=== PATIENT | male | born 1940 | race Caucasian/White ===

== ENCOUNTER → 2016-11-16 | Outpatient (CLI) | payer MEDICARE, OTHER ==
--- NOTE | 2016-11-16 15:39 | XR ---
EXAMINATION TYPE: XR chest 2V DATE OF EXAM: 11/16/2016 COMPARISON: 04/09/2010 INDICATION: Left-sided chest pain TECHNIQUE: Frontal and lateral views of the chest are obtained. FINDINGS: The heart size is normal. The pulmonary vasculature is normal. The lungs are clear. IMPRESSION: 1. No acute pulmonary process.
== END ==
LOC: RADXRMAIN 15:15
PROVIDERS: ATTEND Internal Medicine Geriatric Medicine
DX: R07.9 Chest pain, unspecified (principal)
CPT/HCPCS: 71020

== ENCOUNTER → 2018-05-08 | Outpatient (CLI) | payer MEDICARE, OTHER ==
--- NOTE | 2018-05-08 16:05 | XR ---
EXAMINATION TYPE: XR chest 2V DATE OF EXAM: 05/08/2018 COMPARISON: 11/16/2016 HISTORY: 78-year-old male with cough TECHNIQUE: Frontal and lateral views FINDINGS: Heart normal size. Mild elongation thoracic aorta. Strandy atelectasis lower lungs. No consolidation or pleural effusion. IMPRESSION: No acute cardiopulmonary process.
== END ==
LOC: RADXRMAIN 14:30
PROVIDERS: ATTEND Internal Medicine Geriatric Medicine
DX: R05 Cough (principal)
CPT/HCPCS: 71046

== ENCOUNTER → 2018-09-15 | Outpatient (CLI) | payer MEDICARE, OTHER ==
--- NOTE | 2018-09-15 10:38 | US ---
EXAMINATION TYPE: US venous doppler duplex LE LT DATE OF EXAM: 09/15/2018 10:22 AM COMPARISON: NONE CLINICAL HISTORY: R60.9 edema. Left lower leg swelling. No redness. No hx of blood clots. Not on b lood thinners. SIDE PERFORMED: Left TECHNIQUE: The lower extremity deep venous system is examined utilizing real time linear array sonog aden with graded compression, doppler sonography and color-flow sonography. VESSELS IMAGED: External Iliac Vein (EIV) Common Femoral Vein Deep Femoral Vein Greater Saphenous Vein * Femoral Vein Popliteal Vein Small Saphenous Vein * Proximal Calf Veins (* superficial vessels) Grayscale, color doppler, spectral doppler imaging performed of the deep veins of the left lower extr emity. There is normal flow, compressibility, vascular waveforms. Left Leg: Negative for DVT IMPRESSION: No sonographic evidence of deep venous thrombosis within the left lower extremity.
== END | disposition home or self-care (01) ==
LOC: RADUSWWP 09:57
PROVIDERS: ATTEND Internal Medicine Geriatric Medicine
DX: R60.9 Edema, unspecified (principal)

== ENCOUNTER 2018-12-23 14:37 | Emergency (ER) | payer MEDICARE, OTHER ==
[2018-12-23] MEDS ORDERED: ASPIRIN 81 MG PO STA (15:01)
--- NOTE | 2018-12-23 15:07 | ED ---
Arrhythmia/Palpitations HPI - General Chief Complaint: Arrhythmia/Palpitations Stated Complaint: Abnormal EKG &Knee Pain Time Seen by Provider: 12/23/18 14:48 Source: patient Mode of arrival: ambulatory - History of Present Illness Initial Comments: Patient is 78-year-old male with history of gout and type 2 diabetes is presenting to the emergency department with chief complaint of knee pain and arrhythmia. Patient reports he was moving a large crate of carrots and sutured left his pain is right knee which caused him pain along the lateral aspect of her right knee. Patient reports yesterday he took indomethacin to relieve some of the pain. Patient reports the pain is minimal today but he went to an urgent care for evaluation where they obtained an x-ray. However, they noticed an abnormal heart rhythm and did an EKG and sent patient to the ED for further evaluation. Patient reports he takes daily baby aspirin and does take a statin for hypercholesterolemia. Patient denies any headaches, chest pain, shortness of breath, nausea, vomiting, light headedness, dizziness, blurry vision, one-sided weakness or paresthesias. - Related Data Home Medications Medication Instructions Recorded Confirmed Atorvastatin [Lipitor] 10 mg PO DAILY 12/23/18 12/23/18 Latanoprost/Pf [Latanoprost 0.005% 1 drop BOTH EYES HS 12/23/18 12/23/18 Eye Drop] Repaglinide [Prandin] 2 mg PO BID 12/23/18 12/23/18 Ubidecarenone [Co Q-10] 200 mg PO DAILY 12/23/18 12/23/18 glipiZIDE/METFORMIN HCL 1 tab PO BID 12/23/18 12/23/18 [glipiZIDE/METFORMIN HCL 2.5-500 mg] Allergies Allergy/AdvReac Type Severity Reaction Status Date / Time No Known Allergies Allergy Verified 12/23/18 15:09 Review of Systems ROS Statement: Those systems with pertinent positive or pertinent negative responses have been documented in the HPI. ROS Other: All systems not noted in ROS Statement are negative. Past Medical History Past Medical History: Diabetes Mellitus, Hyperlipidemia Additional Past Medical History / Comment(s): gout, cataracts History of Any Multi-Drug Resistant Organisms: None Reported Past Surgical History: Cholecystectomy Past Psychological History: No Psychological Hx Reported Smoking Status: Never smoker Past Alcohol Use History: None Reported Past Drug Use History: None Reported General Exam Limitations: no limitations General appearance: alert, in no apparent distress Head exam: Present: atraumatic, normocephalic, normal inspection Eye exam: Present: normal appearance Pupils: Present: normal accommodation ENT exam: Present: normal exam, normal oropharynx, mucous membranes moist, TM's normal bilaterally, normal external ear exam Neck exam: Present: normal inspection, full ROM Respiratory exam: Present: normal lung sounds bilaterally Cardiovascular Exam: Present: regular rate, normal rhythm, normal heart sounds Extremities exam: Present: full ROM, normal capillary refill, joint swelling (Mild right knee edema), other (+2 dorsalis pedis and posterior tibialis bilaterally.). Absent: normal inspection (Mild swelling of right knee. 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 Ventricular rate 71, CA interval 160, QRS duration 114, QT/QTC 374/406 Medical Decision Making - Medical Decision Making Patient is 78-year-old male with history of type 2 diabetes and gout is presenting to emergency Department with a chief complaint of an arrhythmia leg pain. X-ray obtained from the urgent care suggestive of calcification in the menisci along with some spurring. Physical examination does indicate some pain along the lateral aspect of the right knee. Patient also reported of the knee giving out whenever he is walking. I suspect the patient to have suffered a meniscal injury with a valgus force while he was twisting to carry a large grape. The patient was sent to the ED for an arrhythmia evaluation. EKG does show supraventricular complexes. Patient had a stress test and echocardiogram about 4 years ago which were unremarkable. Patient has no chest pain or shortness of breath at this time. Initial troponins and Repeat troponins are negative. Patient will be discharged and advised to follow-up with his associate medical director, Dr. Finley. Strict return parameters were thoroughly discussed with patient was understanding and agreeable. Case discussed physician. - Lab Data Result diagrams: 12/23/18 15:08 12/23/18 15:08 Lab Results 12/23/18 12/23/18 12/23/18 Range/Units 15:08 15:08 15:08 WBC 8.1 (3.8-10.6) k/uL RBC 4.74 (4.30-5.90) m/uL Hgb 14.1 (13.0-17.5) gm/dL Hct 41.2 (39.0-53.0) % MCV 86.9 (80.0-100.0) fL MCH 29.8 (25.0-35.0) pg MCHC 34.3 (31.0-37.0) g/dL RDW 13.1 (11.5-15.5) % Plt Count 281 (150-450) k/uL Neutrophils % 79 % Lymphocytes % 10 % Monocytes % 7 % Eosinophils % 2 % Basophils % 1 % Neutrophils # 6.4 (1.3-7.7) k/uL Lymphocytes # 0.8 L (1.0-4.8) k/uL Monocytes # 0.5 (0-1.0) k/uL Eosinophils # 0.1 (0-0.7) k/uL Basophils # 0.1 (0-0.2) k/uL PT 10.1 (9.0-12.0) sec INR 0.9 (<1.2) APTT 26.1 (22.0-30.0) sec Sodium 139 (137-145) mmol/L Potassium 5.1 (3.5-5.1) mmol/L Chloride 106 (98-107) mmol/L Carbon Dioxide 24 (22-30) mmol/L Anion Gap 9 mmol/L BUN 17 (9-20) mg/dL Creatinine 0.89 (0.66-1.25) mg/dL Est GFR (CKD-EPI)AfAm >90 (>60 ml/min/1.73 sqM) Est GFR (CKD-EPI)NonAf 83 (>60 ml/min/1.73 sqM) Glucose 263 H (74-99) mg/dL Calcium 9.5 (8.4-10.2) mg/dL Magnesium 1.4 L (1.6-2.3) mg/dL Total Bilirubin 0.7 (0.2-1.3) mg/dL AST 19 (17-59) U/L ALT 30 (21-72) U/L Alkaline Phosphatase 104 (38-126) U/L Troponin I (0.000-0.034) ng/mL Total Protein 6.7 (6.3-8.2) g/dL Albumin 4.0 (3.5-5.0) g/dL 12/23/18 12/23/18 Range/Units 15:08 18:00 WBC (3.8-10.6) k/uL RBC (4.30-5.90) m/uL Hgb (13.0-17.5) gm/dL Hct (39.0-53.0) % MCV (80.0-100.0) fL MCH (25.0-35.0) pg MCHC (31.0-37.0) g/dL RDW (11.5-15.5) % Plt Count (150-450) k/uL Neutrophils % % Lymphocytes % % Monocytes % % Eosinophils % % Basophils % % Neutrophils # (1.3-7.7) k/uL Lymphocytes # (1.0-4.8) k/uL Monocytes # (0-1.0) k/uL Eosinophils # (0-0.7) k/uL Basophils # (0-0.2) k/uL PT (9.0-12.0) sec INR (<1.2) APTT (22.0-30.0) sec Sodium (137-145) mmol/L Potassium (3.5-5.1) mmol/L Chloride (98-107) mmol/L Carbon Dioxide (22-30) mmol/L Anion Gap mmol/L BUN (9-20) mg/dL Creatinine (0.66-1.25) mg/dL Est GFR (CKD-EPI)AfAm (>60 ml/min/1.73 sqM) Est GFR (CKD-EPI)NonAf (>60 ml/min/1.73 sqM) Glucose (74-99) mg/dL Calcium (8.4-10.2) mg/dL Magnesium (1.6-2.3) mg/dL Total Bilirubin (0.2-1.3) mg/dL AST (17-59) U/L ALT (21-72) U/L Alkaline Phosphatase (38-126) U/L Troponin I <0.012 <0.012 (0.000-0.034) ng/mL Total Protein (6.3-8.2) g/dL Albumin (3.5-5.0) g/dL Disposition Clinical Impression: Arrhythmia, Injury of meniscus of knee Disposition: HOME SELF-CARE Condition: Stable Instructions (If sedation given, give patient instructions): Heart Palpitations (ED) Additional Instructions: Please follow up with cardiology. Please return to emergency department if symptoms worsen. Is patient prescribed a controlled substance at d/c from ED?: No Referrals: Man Jacobsen MD [Primary Care Provider] - 1-2 days Time of Disposition: 18:54
[2018-12-23 15:21] LABS: Basophils # (A) 0.1 k/uL (0-0.2); Basophils % (A) 1 %; Eosinophils # (A) 0.1 k/uL (0-0.7); Eosinophils % (A) 2 %; HCT 41.2 % (39.0-53.0); HGB 14.1 gm/dL (13.0-17.5); Lymphocytes # (A) 0.8 k/uL (1.0-4.8); Lymphocytes % (A) 10 %; MCH 29.8 pg (25.0-35.0); MCHC 34.3 g/dL (31.0-37.0); MCV 86.9 fL (80.0-100.0); Monocytes # (A) 0.5 k/uL (0-1.0); Monocytes % (A) 7 %; Neutrophils # (A) 6.4 k/uL (1.3-7.7); Neutrophils % (A) 79 %; Platelet Count 281 k/uL (150-450); RBC 4.74 m/uL (4.30-5.90); RDW 13.1 % (11.5-15.5); WBC 8.1 k/uL (3.8-10.6)
[2018-12-23 15:30] LABS: INR 0.9 (<1.2); Partial Thromboplastin Time 26.1 sec (22.0-30.0); Prothrombin Time 10.1 sec (9.0-12.0)
[2018-12-23 15:33] LABS: ALT 30 U/L (21-72); AST 19 U/L (17-59); African American GFR (CKD) >90 (>60 ml/min/1.73 sqM); Alkaline Phosphatase 104 U/L (38-126); Anion Gap 9 mmol/L; Blood Urea Nitrogen 17 mg/dL (9-20); Calcium 9.5 mg/dL (8.4-10.2); Carbon Dioxide 24 mmol/L (22-30); Chloride 106 mmol/L (98-107); Glucose 263 mg/dL (74-99); Magnesium 1.4 mg/dL (1.6-2.3); Potassium 5.1 mmol/L (3.5-5.1); Sodium 139 mmol/L (137-145); Total Bilirubin 0.7 mg/dL (0.2-1.3); Total Protein 6.7 g/dL (6.3-8.2)
--- NOTE | 2018-12-23 16:08 | XR ---
EXAMINATION TYPE: XR chest 2V DATE OF EXAM: 12/23/2018 COMPARISON: 05/08/2018 HISTORY: Dysrhythmia TECHNIQUE: Frontal and lateral views of the chest are obtained. FINDINGS: There is no heart failure nor confluent pneumonic infiltrate. Costophrenic angles are nathalie r. There are chest leads. Bony thorax is intact. IMPRESSION: No active cardiopulmonary disease. Normal heart. No change.
[2018-12-23 19:06] VITALS: BP 125/87; PULSE 75; RESP 16; TEMP 98.1
== END 2018-12-23 19:05 | disposition home or self-care (01) ==
LOC: EC 14:37
DX: I49.9 Cardiac arrhythmia, unspecified (principal); S89.91XA Unspecified injury of right lower leg, initial encounter; E11.9 Type 2 diabetes mellitus without complications; E78.00 Pure hypercholesterolemia, unspecified; E78.5 Hyperlipidemia, unspecified; Z79.84 Long term (current) use of oral hypoglycemic drugs; Z79.899 Other long term (current) drug therapy; X58.XXXA Exposure to other specified factors, initial encounter
CPT/HCPCS: 36415; 71046; 80053; 83735; 84484; 85025; 85610; 85730; 93005; 99285

== ENCOUNTER → 2018-12-29 | Outpatient (CLI) | payer MEDICARE, OTHER ==
--- NOTE | 2018-12-29 12:33 | ECHOS ---
STRESS ECHOCARDIOGRAM INDICATIONS: Atherosclerotic heart disease BASELINE HEART RATE: 86 BASELINE BLOOD PRESSURE: 151/88 MAXIMUM HEART RATE: 134 MAXIMUM BLOOD PRESSURE: 195/96 85% MPHR: 122 100% MPHR: 144 METS: 8.5 MAXIMUM STAGE REACHED: 3 TOTAL EXERCISE TIME: 7:00 CLINICAL INFORMATION: Baseline EKG revealed normal sinus rhythm without significant ST changes. Patient walked on standard Rajiv protocol for 7 minutes achieved a maximal heart rate of 134 beats per minute which is more than 85% of predicted maximal. He developed fatigue and shortness of breath but did not have any angina or arrhythmia. Rare PVCs were noted. By EKG criteria, this is a negative stress test with fair exercise capacity. Baseline echo images revealed normal wall motion wall thickening of all segments. At peak exercise, there was good augmentation of left ventricular wall motion and wall thickening of all segments suggesting that there is no evidence of stress-induced ischemia on this study. IMPRESSION: 1. By EKG criteria, this is a negative stress test with fair exercise capacity. 2. Normal stress echocardiogram. MMODL / IJN: [id number] /
== END | disposition home or self-care (01) ==
LOC: RADNMMAIN 10:35
PROVIDERS: ATTEND Internal Medicine Geriatric Medicine
DX: I25.10 Atherosclerotic heart disease of native coronary artery without angina pectoris (principal)
CPT/HCPCS: 93351

== ENCOUNTER 2019-04-23 16:27 | Emergency (ER) | payer MEDICARE, OTHER ==
[2019-04-23 16:48] VITALS: BP 119/78; PULSE 78; RESP 18; TEMP 97.9
--- NOTE | 2019-04-23 17:30 | CT ---
EXAMINATION TYPE: CT brain cspine wo con DATE OF EXAM: 04/23/2019 COMPARISON: CT brain 04/06/2010 HISTORY: Fall with head laceration, LOC CT DLP: 1433.9 mGycm Automated exposure control for dose reduction was used. There is cerebral cortical atrophy. There is no mass effect nor midline shift. There is no sign of in tracranial hemorrhage. The calvarium is intact. There is no evidence of cerebral edema. Cervical vertebra show fairly normal alignment. There is degenerative disc space nor in to C4-C7 with spurring of the endplates. There is multilevel cervical hypertrophic facet arthropathy. The skull ba se is intact. There is no evidence of cervical spine fracture. IMPRESSION: Cerebral atrophy. No acute intracranial abnormality. No change compared to old exam. Spondylotic changes in the lower cervical spine. No fracture seen.
--- NOTE | 2019-04-23 17:51 | ED ---
Fall HPI - General Chief Complaint: Fall Stated Complaint: fall Time Seen by Provider: 04/23/19 16:53 Source: patient Mode of arrival: ambulatory - History of Present Illness Initial Comments: 79-year-old male presenting today for chief complaint of fall with head injury, + LOC. No use of anticoagulation therapy Patient just prior to arrival was working his garage carrying a heavy object when he tripped falling backwards with the object hitting his head. He states he lost consciousness briefly he states he felt like a few seconds. Patient states that he found blood coming from the back of his head. Patient denies any headache dizziness nausea vomiting visual changes or speech changes weakness of the upper or lower extremities sensation deficits, patient denied syncope, chest pain SOB prior to falling States he simply tripping with an object. Patient denies injury to the neck, back abdomen, chest, UE or LE. Patient ambulatory and well appearing on arrival. - Related Data Home Medications Medication Instructions Recorded Confirmed Atorvastatin [Lipitor] 10 mg PO DAILY 12/23/18 12/23/18 Latanoprost/Pf [Latanoprost 0.005% 1 drop BOTH EYES HS 12/23/18 12/23/18 Eye Drop] Repaglinide [Prandin] 2 mg PO BID 12/23/18 12/23/18 Ubidecarenone [Co Q-10] 200 mg PO DAILY 12/23/18 12/23/18 glipiZIDE/METFORMIN HCL 1 tab PO BID 12/23/18 12/23/18 [glipiZIDE/METFORMIN HCL 2.5-500 mg] Allergies Allergy/AdvReac Type Severity Reaction Status Date / Time No Known Allergies Allergy Verified 04/23/19 16:48 Review of Systems ROS Statement: Those systems with pertinent positive or pertinent negative responses have been documented in the HPI. ROS Other: All systems not noted in ROS Statement are negative. Past Medical History Past Medical History: Diabetes Mellitus, Hyperlipidemia Additional Past Medical History / Comment(s): gout, cataracts History of Any Multi-Drug Resistant Organisms: None Reported Past Surgical History: Cholecystectomy Past Psychological History: No Psychological Hx Reported Smoking Status: Never smoker Past Alcohol Use History: None Reported Past Drug Use History: None Reported General Exam - General Exam Comments Initial Comments: General: The patient is awake and alert, in no distress, and does not appear acutely ill. Eye: +3 mm pupils are equal, round and reactive to light, extra-ocular movements are intact. No nystagmus. There is normal conjunctiva bilaterally. No signs of icterus. Ears, nose, mouth and throat: There are moist mucous membranes and no oral lesions. No raccoon or Frey sign. Neck: The neck is supple, there is no tenderness or JVD. No midline tenderness to patient the cervical spine or paravertebral for range of motion of the cervical spine without pain Cardiovascular: There is a regular rate and rhythm. No murmur, rub or gallop is appreciated. Respiratory: Lungs are clear to auscultation, respirations are non-labored, breath sounds are equal. No wheezes, stridor, rales, or rhonchi. Gastrointestinal: Soft, non-distended, non-tender abdomen without masses or organomegaly noted. There is no rebound or guarding present. Musculoskeletal: Normal inspection of the cervical thoracic and lumbar spine. No midline tenderness to patient of the spine. Normal ROM of the upper and lower extremity large joints, no tenderness. Strength 5/5. Sensation intact. Radial pulses equal bilaterally 2+. Neurological: A&O x 3. CN II-XII intact, There are no obvious motor or sensory deficits. Coordination appears grossly intact. Speech is normal. Skin: Skin is warm and dry and no rashes. Occiptal scalp hematoma, scalp abrasion over hematoma, no laceration Psychiatric: Cooperative, appropriate mood & affect, normal judgment. Limitations: no limitations Course Vital Signs 04/23/19 04/23/19 16:44 18:49 Temperature 97.9 F 97.9 F Pulse Rate 78 78 Respiratory 18 18 Rate Blood Pressure 119/78 119/78 O2 Sat by Pulse 100 100 Oximetry Medical Decision Making - Medical Decision Making 79-year-old male presented for fall with LOC. No use of anticoagulation therapy. Tetanus UTD. Patient states that he had brief loss of consciousnes. No focal neurological deficits on examination. No complaints aside from scalp hematoma. CT revealed no acute intracranial process. No abnormalities of the cervical spine. Patient has no abnormal neurological findings or peripheral neurovascular examination. At this time feel patient is stable for discharge with outpatient primary care follow-up. Patient is agreeable to this care plan prefers discharge at this time. Discussed case attending provider and patient was discharged appearing well Disposition Clinical Impression: Fall, Scalp hematoma, LOC (loss of consciousness), Head injury, Scalp abrasion Disposition: HOME SELF-CARE Condition: Good Instructions (If sedation given, give patient instructions): Concussion (ED), Head Injury (ED) Additional Instructions: Please use medication as discussed. Please follow-up with family doctor in the next 2 days. Please return to emergency room if the symptoms increase or worsen or for any other concerns. Is patient prescribed a controlled substance at d/c from ED?: No Referrals: Man Jacobsen MD [Primary Care Provider] - 1-2 days Time of Disposition: 17:50
== END 2019-04-23 18:25 | disposition home or self-care (01) ==
LOC: EC 16:27
DX: S06.9X9A Unspecified intracranial injury with loss of consciousness of unspecified duration, initial encounter (principal); S00.03XA Contusion of scalp, initial encounter; E11.36 Type 2 diabetes mellitus with diabetic cataract; H26.9 Unspecified cataract; E78.5 Hyperlipidemia, unspecified; Z79.84 Long term (current) use of oral hypoglycemic drugs; Z79.899 Other long term (current) drug therapy; W01.198A Fall on same level from slipping, tripping and stumbling with subsequent striking against other object, initial encounter; Y92.59 Other trade areas as the place of occurrence of the external cause
CPT/HCPCS: 70450; 72125; 99284

== ENCOUNTER → 2019-04-26 | Outpatient (CLI) | payer MEDICARE, OTHER ==
--- NOTE | 2019-04-26 21:38 | CT ---
EXAMINATION TYPE: CT abdomen pelvis w con DATE OF EXAM: 04/26/2019 COMPARISON: None INDICATION: Lower abdominal pain and diarrhea x2 months. DLP: 1632.1 mGycm, Automated exposure control for dose reduction was used. CONTRAST: 100ml mL of Isovue 300. Study performed with Oral Contrast TECHNIQUE: Axial images were obtained from above the diaphragm to the pubic rami in the axial plane a t 5 mm thick sections. Reconstructed images are reviewed on the computer in the coronal plane. FINDINGS: Limited CT sections are obtained the lung bases. The lung bases are clear. Coronary artery calcific ation is present. Small hiatal hernia is present. Surgical clips are in the epigastric region. CT ABDOMEN: Liver: Normal Spleen: Normal Pancreas: Multiple calcifications are scattered through the pancreas. Correlate for chronic pancreati tis. Some subtle inflammatory change may be adjacent. Some mild acute pancreatitis could be considere d. No suspicious pancreatic duct dilatation is evident. Adrenal glands: The adrenal glands are normal. Gallbladder: Surgically absent Kidneys: No masses are evident. No hydronephrosis is present. There is a 7 cm cyst at the inferior anterior pole left kidney measuring 8 Hounsfield units. There is likely a 0.3 cm nonobstructing renal stone at the inferior pole left kidney. A nonobstructing 0.5 cm calcification is in the mid lateral left kidney. Couple of small cortical renal cysts are in the upper pole left kidney. There are multip le calcifications without obstruction in the right kidney including a 0.6 cm and the 0.5 cm calcifica tion superior pole couple of mid punctate calcifications measuring approximately 0.1 cm and 0.3 cm in the mid right kidney and a 0.2 cm inferior pole renal stone. Delayed images were obtained through t he kidneys, which remain unremarkable. Aorta: Vascular calcification is within the aorta. Inferior vena cava: Normal. CT PELVIS: Loops of bowel within the abdomen and pelvis are normal. There are loops of bowel which are incom pletely distended or lack oral contrast limiting their evaluation. Appendix: Normal as visualized. Urinary bladder: Partially decompressed some limitation. Genitourinary structures: Prostate is slightly prominent. Osseous structures: No suspicious lytic or sclerotic lesions. IMPRESSIONS: 1. Chronic pancreatitis. Some subtle adjacent inflammatory change could suggest some mild acute panc reatitis. 2. Bilateral nonobstructing renal stones. 3. Renal cysts. The largest measuring 7 cm at the inferior pole left kidney.
== END | disposition home or self-care (01) ==
LOC: RADCTMAIN 14:46
PROVIDERS: ATTEND Internal Medicine Geriatric Medicine
DX: K86.1 Other chronic pancreatitis (principal); N28.1 Cyst of kidney, acquired
CPT/HCPCS: 74177; Q9967

== ENCOUNTER → 2019-11-09 | Outpatient (CLI) | payer MEDICARE, OTHER ==
--- NOTE | 2019-11-09 16:57 | MR ---
MR abdomen with and without contrast HISTORY: Chronic pancreatitis Multiplanar multisequence and postcontrast images obtained through the abdomen following 9 cc Gadavis t IV Correlation to CT abdomen pelvis 04/26/2019 Pancreas appears somewhat fatty replaced. The extensive calcification seen on CT are not as well seen on MRI consistent with chronic pancreatitis. Pancreatic duct is dilated. No evident mass. There is l ow intense focus on axial image 26 of the T2 data set, difficult to exclude calcification within the pancreatic duct. The large exophytic cystic focus at the lower pole the left kidney is again noted, T1 hypointense, T2 intense and measures 7.6 cm in diameter. 2 additional cortical cysts are present one of which in exo phytic location the upper pole and medially in the midpole shows similar characteristics, there is a focus however exophytic location in the mid to lower pole laterally which is T2 hypointense measuring approximately 18 mm on coronal image #28 of the T2 data set, T1-weighted images show increased signa l, findings may represent proteinaceous cyst. Lobular contour of the right kidney is again seen, the patient's known renal calculi not well appreciated on MR. There is no hydronephrosis. The adrenal glands show symmetric appearance. The liver is enlarged. Patient is post cholecystectomy. There is extensive diverticular change present within the colon. Lung bases are clear, there is no p leural pericardial effusion. There is hiatal hernia with partial intrathoracic stomach present. This may be recurrent, surgical clips are present at this level, correlate with appropriate surgical histo ry. Motion a duodenal diverticulum at the level of the head of the pancreas as noted on CT. Small bowel l oops show air-filled appearance, multiple air-fluid levels similar to CT, there is motion artifact. A emily shows normal caliber. No retroperitoneal adenopathy or ascites. IMPRESSION: Findings consistent with chronic pancreatitis, difficult to exclude calculus within the p ancreatic duct, multiple calcifications are noted on CT within the pancreas as noted above. Hepatomeg marisol. Additional findings above.
== END | disposition home or self-care (01) ==
LOC: RADMRIMAIN 11:42
PROVIDERS: ATTEND Internal Medicine
DX: R16.0 Hepatomegaly, not elsewhere classified (principal); N20.0 Calculus of kidney; N28.1 Cyst of kidney, acquired; N28.89 Other specified disorders of kidney and ureter; K86.89 Other specified diseases of pancreas; K57.10 Diverticulosis of small intestine without perforation or abscess without bleeding; Z90.49 Acquired absence of other specified parts of digestive tract
CPT/HCPCS: 74183; A9585

== ENCOUNTER → 2019-11-12 | Outpatient (CLI) | payer MEDICARE, OTHER ==
--- NOTE | 2019-11-12 17:55 | MR ---
EXAMINATION TYPE: MR pelvis wo/w con DATE OF EXAM: 11/12/2019 COMPARISON: CT 04/26/2019 and MRI abdomen 11/09/2019 HISTORY: 79 year-old male K86.1 Pancreatitis Technique: Multiplanar, multisequence images of the pelvis were obtained before and after administrat ion of 9 mL intravenous Gadavist gadolinium contrast. FINDINGS: The patient's [id number] sized hiatal hernia with surgical clips near the GE junction not incl uded on this exam. Mild circumference wall thickening mid rectum could represent adherent stool. Sigmoid diverticulosis. Partially visualized large 7.1 cm cyst from the lower pole of the left kidney. Normal appendix noted. Mild circumferential bladder wall thickening. Prostate gland is visualized measuring 5.1 cm wide. There is a 1.5 cm T2 hypointense area within the right central zone, refer to series 601 image 5. Postcontrast axial sequences limited due to extensive artifact in the left hemipelvis. No abnormal fl uid collection seen within the pelvis. No pelvic lymphadenopathy identified. Moderate multilevel degenerative disc disease in the visualized lower lumbar spine. Heterogeneous marrow signal likely from areas of red marrow hyperplasia which can be seen in setting of anemia, obesity, smoking, chronic disease. IMPRESSION: 1. Sigmoid diverticulosis. Mild circumferential wall thickening of the mid rectum could represent adh erent stool. Direct visualization recommended to exclude a mucosal lesion if routine screening colono scopy is not being performed. 2. Prostatomegaly at 5.1 cm wide. There is a 1.5 cm area of T2 low signal within the right central zo ne. Correlate with PSA values to exclude the possibility of prostate cancer. 3. Mild circumferential bladder wall thickening could reflect chronic bladder wall hypertrophy versus cystitis. 4. Query prior Chetna fundoplication on the correlative CT. The presence of a small to moderate sized hiatal hernia suggests a slipped Chetna wrap in this setting.
== END | disposition home or self-care (01) ==
LOC: RADMRIMAIN 12:04
PROVIDERS: ATTEND Internal Medicine
DX: K57.30 Diverticulosis of large intestine without perforation or abscess without bleeding (principal); K63.89 Other specified diseases of intestine; N40.0 Benign prostatic hyperplasia without lower urinary tract symptoms; N32.89 Other specified disorders of bladder
CPT/HCPCS: 72197; A9585

== ENCOUNTER 2021-06-06 09:09 | Observation (INO) | payer MEDICARE ==
--- NOTE | 2021-06-06 09:29 | ED ---
General Adult HPI - General Chief complaint: Neuro Symptoms/Deficit Stated complaint: confusion, speech trouble Time Seen by Provider: 06/06/21 09:18 Source: patient, family, RN notes reviewed Mode of arrival: ambulatory Limitations: no limitations - History of Present Illness Initial comments: Patient is a pleasant 81-year-old male presenting to the emergency department with concerns for speech problems. Onset was at 5:30 last night. Patient was awake at the time. Patient had significant problems with speech. Patient has had some confusion and problems finding words. states the patient did not seem to understand several things. Patient states there may be almost a minimal headache however very mild. No extremity weakness. No loss of sensation. No history of similar symptoms previously. - Related Data Home Medications Medication Instructions Recorded Confirmed Atorvastatin [Lipitor] 10 mg PO DAILY 12/23/18 12/23/18 Latanoprost/Pf [Latanoprost 0.005% 1 drop BOTH EYES HS 12/23/18 12/23/18 Eye Drop] Repaglinide [Prandin] 2 mg PO BID 12/23/18 12/23/18 Ubidecarenone [Co Q-10] 200 mg PO DAILY 12/23/18 12/23/18 glipiZIDE/METFORMIN HCL 1 tab PO BID 12/23/18 12/23/18 [glipiZIDE/METFORMIN HCL 2.5-500 mg] Allergies Allergy/AdvReac Type Severity Reaction Status Date / Time No Known Allergies Allergy Verified 06/06/21 09:16 Review of Systems ROS Statement: Those systems with pertinent positive or pertinent negative responses have been documented in the HPI. ROS Other: All systems not noted in ROS Statement are negative. Constitutional: Denies: fever Eyes: Denies: eye pain ENT: Denies: ear pain Respiratory: Denies: cough, dyspnea Cardiovascular: Denies: chest pain Endocrine: Denies: fatigue Gastrointestinal: Denies: abdominal pain Genitourinary: Denies: dysuria Musculoskeletal: Denies: back pain Skin: Denies: rash Neurological: Reports: as per HPI, confusion. Denies: weakness, numbness, paresthesias Past Medical History Past Medical History: Diabetes Mellitus, Hyperlipidemia Additional Past Medical History / Comment(s): gout, cataracts, pancreatitis History of Any Multi-Drug Resistant Organisms: None Reported Past Surgical History: Cholecystectomy Past Psychological History: No Psychological Hx Reported Smoking Status: Never smoker Past Alcohol Use History: None Reported Past Drug Use History: None Reported General Exam Limitations: no limitations General appearance: alert, in no apparent distress Head exam: Present: normocephalic Eye exam: Present: normal appearance, PERRL, EOMI. Absent: nystagmus ENT exam: Present: normal oropharynx Neck exam: Present: normal inspection Respiratory exam: Present: normal lung sounds bilaterally Cardiovascular Exam: Present: regular rate, normal rhythm GI/Abdominal exam: Present: soft. Absent: tenderness Extremities exam: Present: normal inspection Neurological exam: Present: alert, oriented X3, CN II-XII intact. Absent: motor sensory deficit Expanded Neurological exam: Present: protecting the airway Patient oriented to: Present: person, place, time Speech: Present: fluid speech Cranial nerves: EOM's Intact: Normal, Facial Sensation: Normal Sensory exam: Upper Extremity Light Touch: Normal, Lower Extremity Light Touch: Normal Motor strength exam: RUE: 5, LUE: 5, RLE: 5, LLE: 5 Eye Response: (4) open spontaneously Motor Response: (6) obeys commands Verbal Response: (5) oriented Psychiatric exam: Present: normal affect, normal mood Skin exam: Present: normal color Course Vital Signs 06/06/21 06/06/21 06/06/21 09:13 09:25 09:55 Temperature 99 F 99 F Pulse Rate 81 81 67 Respiratory 18 18 18 Rate Blood Pressure 115/72 115/72 116/78 O2 Sat by Pulse 98 98 97 Oximetry EKG Findings - EKG Comments: EKG Findings:: Sinus rhythm with a rate of 80. PA 170. QRS 109. QT 355. QTC 390. Left axis. Normal QRS. No acute ST change. Medical Decision Making - Medical Decision Making Case was discussed in detail with Dr. Jacobsen who will admit his patient. He did come evaluate. Patient reevaluated. Patient and family updated. - Lab Data Result diagrams: 06/06/21 09:31 06/06/21 09:31 Lab Results 06/06/21 06/06/21 06/06/21 Range/Units 09:30 09:31 09:31 WBC 7.9 (3.8-10.6) k/uL RBC 4.71 (4.30-5.90) m/uL Hgb 14.0 (13.0-17.5) gm/dL Hct 41.4 (39.0-53.0) % MCV 88.0 (80.0-100.0) fL MCH 29.7 (25.0-35.0) pg MCHC 33.8 (31.0-37.0) g/dL RDW 14.0 (11.5-15.5) % Plt Count 298 (150-450) k/uL MPV 7.3 Neutrophils % 71 % Lymphocytes % 15 % Monocytes % 6 % Eosinophils % 5 % Basophils % 1 % Neutrophils # 5.6 (1.3-7.7) k/uL Lymphocytes # 1.2 (1.0-4.8) k/uL Monocytes # 0.5 (0-1.0) k/uL Eosinophils # 0.4 (0-0.7) k/uL Basophils # 0.0 (0-0.2) k/uL Sodium 138 (137-145) mmol/L Potassium 4.7 (3.5-5.1) mmol/L Chloride 105 (98-107) mmol/L Carbon Dioxide 24 (22-30) mmol/L Anion Gap 9 mmol/L BUN 15 (9-20) mg/dL Creatinine 0.81 (0.66-1.25) mg/dL Est GFR (CKD-EPI)AfAm >90 (>60 ml/min/1.73 sqM) Est GFR (CKD-EPI)NonAf 85 (>60 ml/min/1.73 sqM) Glucose 121 H (74-99) mg/dL POC Glucose (mg/dL) 114 H (75-99) mg/dL POC Glu Tank Pumper Panelboard ID Ari[place] Dai Calcium 9.4 (8.4-10.2) mg/dL Total Bilirubin 0.7 (0.2-1.3) mg/dL AST 24 (17-59) U/L ALT 27 (4-49) U/L Alkaline Phosphatase 163 H (38-126) U/L Total Protein 6.7 (6.3-8.2) g/dL Albumin 3.9 (3.5-5.0) g/dL - Radiology Data Radiology results: report reviewed (CT brain reveals no acute process), image reviewed (Chest x-ray shows no acute process) Disposition Clinical Impression: Cerebrovascular accident (CVA) Disposition: ADMITTED IP TO THIS HOSP Is patient prescribed a controlled substance at d/c from ED?: No Referrals: Man Jacobsen MD [Primary Care Provider] - 1-2 days Time of Disposition: 10:08
[2021-06-06 09:32] LABS: Glucose,Whole Blood 114 mg/dL (75-99)
[2021-06-06 09:40] LABS: Basophils % (A) 1 %; Eosinophils # (A) 0.4 k/uL (0-0.7); Eosinophils % (A) 5 %; HCT 41.4 % (39.0-53.0); Lymphocytes # (A) 1.2 k/uL (1.0-4.8); Lymphocytes % (A) 15 %; MCH 29.7 pg (25.0-35.0); MCHC 33.8 g/dL (31.0-37.0); Mean Platelet Volume 7.3; Monocytes # (A) 0.5 k/uL (0-1.0); Monocytes % (A) 6 %; Neutrophils # (A) 5.6 k/uL (1.3-7.7); Neutrophils % (A) 71 %; Platelet Count 298 k/uL (150-450); RBC 4.71 m/uL (4.30-5.90); WBC 7.9 k/uL (3.8-10.6)
--- NOTE | 2021-06-06 09:51 | CT ---
EXAMINATION TYPE: CT brain wo con DATE OF EXAM: 06/06/2021 COMPARISON: 04/23/2019 HISTORY: Confusion, speech trouble CT DLP: 1173.[address] of the brain was performed. The ventricles, basal cisterns and sulci overlying the cerebral convexities demonstrate mild enlargem ent. There is no evidence for intracranial hemorrhage or sulcal effacement. There is decreased attenuation about the periventricular white matter and deep white matter of both c erebral hemispheres, compatible with chronic small vessel ischemia. Differential diagnosis does inclu de demyelination. No mass effects are seen.No midline shift. Osseous calvarium is intact. If symptoms persist consider MRI. IMPRESSION: 1. Age related atrophic and chronic small vessel ischemic change without acute intracranial process s een at this time.
[2021-06-06 09:52] LABS: ALT 27 U/L (4-49); AST 24 U/L (17-59); African American GFR (CKD) >90 (>60 ml/min/1.73 sqM); Albumin 3.9 g/dL (3.5-5.0); Alkaline Phosphatase 163 U/L (38-126); Anion Gap 9 mmol/L; Blood Urea Nitrogen 15 mg/dL (9-20); Calcium 9.4 mg/dL (8.4-10.2); Carbon Dioxide 24 mmol/L (22-30); Chloride 105 mmol/L (98-107); Glucose 121 mg/dL (74-99); Non-African American GFR(CKD) 85 (>60 ml/min/1.73 sqM); Potassium 4.7 mmol/L (3.5-5.1); Sodium 138 mmol/L (137-145); Total Bilirubin 0.7 mg/dL (0.2-1.3); Total Protein 6.7 g/dL (6.3-8.2)
--- NOTE | 2021-06-06 09:55 | XR ---
EXAMINATION TYPE: XR chest 1V portable DATE OF EXAM: 06/06/2021 HISTORY: Shortness of breath. COMPARISON: 12/23/2018 TECHNIQUE: Single view of the chest is submitted. FINDINGS: Demonstrated are scattered senescent parenchymal change. There is no evidence for focal infiltrate. The heart is stable. Hilar and mediastinal structures are within normal limits. Degenerative changes are seen of the dorsal spine. IMPRESSION: 1. Chronic changes without evidence for acute pulmonary disease.
[2021-06-06] MEDS ORDERED: ASPIRIN 325 MG TAB PO STA (10:09)
[2021-06-06 10:11] LABS: Partial Thromboplastin Time 25.3 sec (22.0-30.0); Prothrombin Time 10.6 sec (9.0-12.0)
[2021-06-06] MEDS: SODIUM CHLORIDE 0.9% 1,000 ML IV STA ×2 (11:01→12:53)
--- NOTE | 2021-06-06 11:29 | CT ---
EXAMINATION TYPE: CT angio head neck DATE OF EXAM: 06/06/2021 COMPARISON: none HISTORY: Neurodeficit, acute, stroke suspected CONTRAST: Performed without and with IV Contrast, patient injected with 100 ml mL of Isovue 370. Combination Contrast CTA cervical carotids and [place] CTA cervical carotids with 3-D recons truction Contrast CTA of the cervical carotids was performed 3-D reconstruction imaging obtained at a separate workstation. Right carotid system: Mild plaque is seen of the right common carotid artery. There is mild plaque a lso noted at the carotid bulb and proximal ICA. No significant diameter reduction. ECA is patent. Right vertebral artery appears unremarkable. Left carotid system: Mild plaque is seen of the left common carotid artery. There is mild plaque als o noted at the carotid bulb and proximal ICA. No significant diameter reduction. ECA is patent. Lef t vertebral artery appears unremarkable. IMPRESSION: 1. No significant diameter reduction to account for the patient's symptoms. CTA [place] with 3-D reconstruction Contrast CTA of the [place] was performed 3-D reconstruction imaging obtained at a separate workstation. Vertebrobasilar system as well as intracranial portions of the internal carotid arteries and their ma [place] tributaries are patent. I do not see evidence for sizable aneurysm or vascular malformation. Pl ease note MRI provides greater sensitivity and specificity. Visualized brain appears grossly unremar kable. IMPRESSION: 1. No significant abnormality. NASCET criteria was used in interpretation of this exam?
[2021-06-06 11:42] LABS: Appearance,Urine Clear (Clear); Bilirubin,Urine Negative (Negative); Blood,Urine Negative (Negative); Color,Urine Light Yellow; Glucose,Urine (UA) Negative (Negative); Ketones,Urine Negative (Negative); Leukocyte Esterase,Urine Negative (Negative); Nitrite,Urine Negative (Negative); PH, Urine 5.5 (5.0-8.0); Protein,Urine Negative (Negative); Specific Gravity,Urine 1.007 (1.001-1.035); Urobilinogen,Urine <2.0 mg/dL (<2.0)
[2021-06-06 12:06] LABS: Glucose,Whole Blood 71 mg/dL (75-99)
--- NOTE | 2021-06-06 12:24 | P.CNNES ---
History of Present Illness Consult date: 06/06/21 Requesting physician: Ronak Shaw Reason for Consult: cva History of Present Illness: This is a 81-year-old right-handed gentleman with medical history of diabetes mellitus (for past 15-20 years), pancreatitis, former heavy alcohol use who presented to the emergency department today for speech difficulty. The patient is accompanied by his . The patient stated that yesterday he was with his at a resturant then fell off ordering from the menu. He felt speech was off. he noticed this around 5pm yesterday (06/05/2021) Patient noticed that night his speech was garbled. According to , when patient was talking to his son, patient could not keep up with conversation and did not make sense. Today when he woke-up he continued to feel off and as result wanted this to be addressed. Today he noticed he has left facial asymmetry. Otherwise denies any focal weakness, headache, visual disturbance, numbness, tingling. He denies of stroke or TIA in the past. He is not on antiplatelets or anticoagulation. He is on Lipitor 10mg daily (started by his PCP as preventative according to ). He denies history of Atrial fibrillation or flutter. Since the patient has been in our facility he feels he is doing drastically better. He denies of any headaches currently. Patient denies history of hypertension. Of note, patient states that his mother had stroke in her mid to late 80's years old. Her has sibling who had stroke in their 60's. He has history of significant alcohol use in the past but that is years back according to patient. Some of the work-up consisted of: Initial vitals: BP 115/72, HR 81, RR 18, Temp 99F oral and pulse ox 98% at RA. CBC with diff is unremarkable. Chemistry panel: is serum glucose 121, POC glucose 114. Calcium is 9.4. Otherwise rest is unremarkable. AST/ALT: Normal. PT/PTT/INR: Within normal limits. CT head: Is reported as age related atrophic and chronic small vessel ischemic change without acute intracranial process seen at this time. I personally reviewed CT head and agree with report. CTA head/neck: Is reported as no significant abnormality. EKG is reported as sinus rhythm with sinu arrhythmia. Left axis deviation. Abnormal EKG. Stroke code was activated by ED team. They felt patient symptoms are nearly resolved. And no IV tpa since outside window and the risk outweigh benefit. The ED team spoke with stroke attending Dr. Alvarez regarding this case. Review of Systems Review of system: The 12 point system was reviewed and apparent positive and negative per HPI. Past Medical History Past Medical History: Diabetes Mellitus, Hyperlipidemia Additional Past Medical History / Comment(s): gout, cataracts, pancreatitis History of Any Multi-Drug Resistant Organisms: None Reported Past Surgical History: Cholecystectomy Past Psychological History: No Psychological Hx Reported Smoking Status: Never smoker Past Alcohol Use History: None Reported Past Drug Use History: None Reported Medications and Allergies Home Medications Medication Instructions Recorded Confirmed Type Atorvastatin [Lipitor] 10 mg PO DAILY 12/23/18 06/06/21 History Latanoprost/Pf [Latanoprost 0.005% 1 drop BOTH EYES HS 12/23/18 06/06/21 History Eye Drop] Repaglinide [Prandin] 2 mg PO BID 12/23/18 06/06/21 History Ubidecarenone [Co Q-10] 200 mg PO DAILY 12/23/18 06/06/21 History glipiZIDE/METFORMIN HCL 2 tab PO BID 12/23/18 06/06/21 History [glipiZIDE/METFORMIN HCL 2.5-500 mg] Allopurinol [Zyloprim] 300 mg PO DAILY PRN 06/06/21 06/06/21 History Ascorbic Acid [Vitamin C] 500 mg PO DAILY 06/06/21 06/06/21 History Cholecalciferol (Vitamin D3) 125 mcg PO DAILY 06/06/21 06/06/21 History [Vitamin D3 (125 MCG = 5,000 IU)] Cyanocobalamin [Vitamin B-12] 500 mcg PO DAILY 06/06/21 06/06/21 History Indomethacin [Indocin] 50 mg PO DAILY PRN 06/06/21 06/06/21 History Lipase/Protease/Amylase [Zenpep Dr 1 cap PO TID-W/MEALS 06/06/21 06/06/21 History 40,000 Unit Capsule] Losartan Potassium [Cozaar] 25 mg PO DAILY 06/06/21 06/06/21 History Magnesium Gluconate [Magonate] 500 mg PO DAILY 06/06/21 06/06/21 History Tamsulosin [Flomax] 0.4 mg PO HS 06/06/21 06/06/21 History Vitamin B Complex 1 cap PO DAILY 06/06/21 06/06/21 History Zinc 50 mg PO DAILY 06/06/21 06/06/21 History Allergies Allergy/AdvReac Type Severity Reaction Status Date / Time No Known Allergies Allergy Verified 06/06/21 10:49 Physical Examination - Vital Signs Vital Signs: Vital Signs Temp Pulse Resp BP Pulse Ox 06/06/21 11:11 97.8 F 67 18 110/87 97 06/06/21 10:25 97.8 F 67 18 110/87 97 06/06/21 09:55 97.8 F 67 18 106/75 97 06/06/21 09:25 99 F 81 18 115/72 98 06/06/21 09:13 99 F 81 18 115/72 98 Intake and Output 06/05/21 06/06/21 06/06/21 22:59 06:59 14:59 Other: Weight 94.347 kg GENERAL: The patient is lying in bed and is not in acute distress. CHEST: The heart rate is regular rate rhythm. No murmurs to auscultation. LUNG: Clear to auscultation bilaterally no wheezing noted throughout. Not lab ored breathing. ABDOMEN/GI: Bowel sounds present in all 4 quadrants. No tenderness to palpation throughout. NEUROLOGICAL: Higher mental function: The patient is awake, alert, oriented to self, place and time. Patient is following commands. No aphasia and no neglect.. Intact repetition. Cranial nerves: The pupils are round, equal and reactive to light and accommodation. Visual matthews are full to confrontation throughout. Extraocular movement is intact no nystagmus is noted. Facial sensation is normal to touch throughout. The facial strength is left nasolabial flattening. throughout. Hearing is normal bilaterally to hand rub. Tongue is midline and moved [id number] without any difficulty. No dysarthria is noted. Shoulder shrug is normal bilaterally. Motor: The strength is 5 over 5 throughout. Normal tone and bulk. Cerebellum: Normal finger to nose bilaterally. Sensation: Sensation is normal to touch throughout. Reflexes (right/left): 2+ throughout except ankles are 1+ bilaterally.. Plantars are mute bilaterally. My NIH stroke scale: 1 for facial droop (left). Results - Laboratory Findings CBC and BMP: 06/06/21 09:31 06/06/21 09:31 Abnormal Lab Findings: Abnormal Labs 06/06/21 06/06/21 09:30 09:31 Glucose 121 H POC Glucose (mg/dL) 114 H Alkaline Phosphatase 163 H Assessment and Plan Assessment: Acute transient aphasia (had garbled speech since 06/05/2021) but on examination has left nasolabial flattening: Is due to acute ischemic stroke. No IV tpa since outside window and risk outweigh benefit. Diabetes Mellitus Pancreatitis (was told due to stones) History of significant alcohol use in past but stopped years back. Plan: In the ED he was given ASA 325mg once. He was started on ASA 325mg and Plavix 75mg by primary team. I will decrease ASA to 81mg daily. Continue Lipitor 10mg daily (will not give higher dose because of his history of pancreatitis). MRI Brain, 2 D echo, lipid panel is ordered and are pending. Ordered TSH, HbA1c. PT, OT and GRAIN TRIMMER are consulted Continue neuro checks Continue cardiac monitoring. Will defer the rest of medical management to the primary team. For DVT prophylaxis: I started him on subq heparin 5000U every 12 hours. Upon discharge, the patient needs to follow-up with neurologist as outpatient within 1-2 weeks. The plan is discussed with patient, his and nurse. Thank you for the consultation. Emiliano Smith M.D. Neuro-Hospitalist Time with Patient: Greater than 30
[2021-06-06] MEDS: CLOPIDOGREL 75 MG TAB PO SCH (12:52)
--- NOTE | 2021-06-06 13:50 | MR ---
EXAMINATION TYPE: MR brain wo/w con DATE OF EXAM: 06/06/2021 1:43 PM COMPARISON: NONE HISTORY: Neuro deficit, acute, stroke suspected CONTRAST: Patient received 9 mL intravenous Gadavist gadolinium contrast. Multiplanar and multispin-echo imaging of the brain was performed . Pre and post contrast enhanced i mages are obtained. The ventricles, basal cisterns and sulci overlying the cerebral convexities are mildly enlarged. There is evidence of mild to moderate periventricular white matter ischemic demyelination. Remote deep white matter insults are also noted. No acute edema is seen on diffusion weighted imaging. There is no evidence for midline shift or mass effect. Acute intracranial hemorrhage or extra-axial collection is not evident. No enhancing lesions are seen. The paranasal sinuses and mastoid air cells are well-aerated. IMPRESSION: Age-related atrophic and chronic small vessel ischemic change. No acute intracranial process at this time. No enhancing lesions are seen.
--- NOTE | 2021-06-06 13:52 | ECHOF ---
Referral Reason:lvfunction MEASUREMENTS -------- HEIGHT: 182.9 cm WEIGHT: 94.3 kg BP: RVIDd: 2.9 cm (< 3.3) IVSd: 1.2 cm (0.6 - 1.1) LVIDd: 4.7 cm (3.9 - 5.3) LVPWd: 1.5 cm (0.6 - 1.1) IVSs: 1.7 cm LVIDs: 3.8 cm LVPWs: 1.5 cm LA Diam: 4.2 cm (2.7 - 3.8) LAESV Index (A-L): 20.72 ml/m Ao Diam: 3.4 cm (2.0 - 3.7) AV Cusp: 1.9 cm (1.5 - 2.6) MV EXCURSION: 15.618 mm (> 18.000) MV EF SLOPE: 87 mm/s (70 - 150) EPSS: 0.6 cm MV E Case: 0.49 m/s MV DecT: 341 ms MV A Case: 0.70 m/s MV E/A Ratio: 0.70 RAP: 5.00 mmHg RVSP: 30.87 mmHg FINDINGS -------- Sinus rhythm. This was a technically good study. The left ventricular size is normal. There is borderline concentric left ventricular hypertrophy. Overall left ventricular systolic function is normal with, an EF between 55 - 60 %. The right ventricle is normal in size. Normal LA size by volume 22+/-6 ml/m2. The right atrial size is normal. The aortic valve is trileaflet, and appears structurally normal. No aortic stenosis or regurgitation. Mild mitral regurgitation is present. Mild tricuspid regurgitation present. Right ventricular systolic pressure is normal at < 35 mmHg. There is no pulmonic regurgitation present. There is no pericardial effusion. CONCLUSIONS -------- 1. The left ventricular size is normal. 2. There is borderline concentric left ventricular hypertrophy. 3. Overall left ventricular systolic function is normal with, an EF between 55 - 60 %. 4. The right ventricle is normal in size. 5. Normal LA size by volume 22+/-6 ml/m2. 6. The right atrial size is normal. 7. The aortic valve is trileaflet, and appears structurally normal. No aortic stenosis or regurgitati on. 8. Mild mitral regurgitation is present. 9. Mild tricuspid regurgitation present. 10. There is no pericardial effusion. VERTICAL CONTOUR BAND SAW OPERATOR: Giuliana Harris RDCS
[2021-06-06] MEDS: INSULIN ASPART (NovoLOG) 100 UNIT/ML VIAL SQ SCH ×2 (15:09→18:05)
[2021-06-06 16:20] LABS: Glucose,Whole Blood 80 mg/dL (75-99)
[2021-06-06] MEDS: REPAGLINIDE 1 MG TAB PO SCH (17:52)
[2021-06-06] MEDS: metFORMIN 500 MG TAB PO SCH (17:52)
[2021-06-06] MEDS: SODIUM CHLORIDE 0.9% 1,000 ML IV SCH ×2 (18:07→22:07)
--- NOTE | 2021-06-06 19:15 | P.HPIM ---
History of Present Illness H&P Date: 06/06/21 HISTORY OF PRESENT ILLNESS 81-year-old male one of my office patient for over 20 years with past medical history of type 2 diabetes, hypertension, hyperlipidemia, mild atherosclerotic heart disease and chronic neuropathy who had history of recurrent pancreatitis with pancreatic duct stent placed at [facility] 3 years ago has been doing well with no recurrent episode since. Patient also had mild BPH symptoms. Patient has been doing well until late yesterday when he developed to have slight change in his speech the notice that patient had slight change in mentation not responding well and not as sharp as expected. This morning is still not able to keep up with his conversation with speech not been able to answer by the right wording also had slight left facial droop with generalized weakness mild tingling sensation without gross weakness in one side or another. The also remember from yesterday the patient talking to his son he could not complete his conversation and make any sense out of his talk. With all of the above and concern about stroke with his facial Asymmetry along with his dysphagiaended up coming to the emergency department at [facility] where was seen and evaluated initially his vitals were normal, blood test showed no major abnormality mildly elevated blood sugar with A1c of 6.7. Ended up going for CT of the brain which showed age-related atrophy and chronic small vessel disease. CTA showed no significant diameter reduction and circulation to account for patient's symptoms. Patient was giving aspirin and Plavix will consult neurology order an echocardiogram and MRI of the brain at this point. Patient be hospitalized with above problem. He has not had any history of A. fib in the past no history of CVA. REVIEW OF SYSTEMS Constitutional: No fever, no chills, no night sweats. No weight change. No weakness, fatigue or lethargy. No daytime sleepiness. EENT: No headache. No blurred vision or double vision, no loss of vision. No loss of Hearing, no ringing in the ears, no dizziness. No nasal drainage or congestion. No epistaxis. No sore throat.mild droopy face and the left side Lungs: No shortness of breath, cough, no sputum production. No wheezing. Cardiovascular: No chest pain, no lower extremity edema. No palpitations. No paroxysmal nocturnal dyspnea. No orthopnea. No lightheadedness or dizziness. No syncopal episodes. Abdominal: No abdominal pain. No nausea, vomiting. No diarrhea. No constipation. No bloody or tarry stools.. No loss of appetite. Genitourinary: No dysuria, increased frequency, urgency. No urinary retention. Musculoskeletal: No myalgias. No muscle weakness, no gait dysfunction, no frequent falls. No back pain. No neck pain. Integumentary: No wounds, no lesions. No rash or pruritus. No unusual bruising. No change in hair or nails. Neurologic: positive aphasia. positive facial droop. No change in mentation. No head injury. No headache. No paralysis. No paresthesia. Psychiatric: No depression. No anxiety. No mood swings. Endocrine: No abnormal blood sugars. No weight change. No excessive sweating or thirst. No cold intolerance. SOCIAL HISTORY He quit smoking 13 to go smoke half pack a day for 15 years, he quit alcohol few years ago as well is to be heavy drinker earlier. he does not use any marijuana, does not use any CPAP or oxygen. FAMILY HISTORY Patient has 3 children are all living and well, 13 siblings 7 of them pass 1 from [place], one from CVA, 1 from lung cancer and the rest from all the age. Living one had diabetes hypertension and CAD. Father in his 70s from leukemia, mother age 82 from massive stroke. PHYSICAL EXAMINATION Gen: This is well-developed no acute respiratory distress. HEENT: Head is atraumatic, normocephalic. Pupils equal, round. Sclerae is anicteric. NECK: Supple. No JVD. No lymphadenopathy. No thyromegaly. LUNGS: Clear to auscultation. No wheezes or rhonchi. No intercostal retrac tions. HEART: Regular rate and rhythm. No murmur. ABDOMEN: Soft. Bowel sounds are present. No masses. No tenderness. EXTREMITIES: No pedal edema. No calf tenderness. NEUROLOGICAL: Patient is awake, alert and oriented x3. Cranial nerves 2 through 12 are grossly intact, has generalized weakness not able to see any evidence of droopy face at this point I the time I examined him his speech was back to normal.. ASSESSMENT AND PLAN 1.CVA/TIA: Patient had significant events so far had reverse mostly still ongoing with his workup MRI of the brain along with echocardiogram will be done continue to watch patient's symptoms patient would benefit from being on Plavix and aspirin better control of his blood pressure cholesterol and watch his sugar very carefully. 2 aphasia: Secondary to TIA/CVA, will consult speech watch for any swallowing abnormality might require any further attention. 3 type 2 diabetes: Has been on glipizide/metformin along with Prandin resume me dication without at 4 minutes point was start patient on Accu-Chek with sliding scales coverage patient to resume his Levemir 28 units daily. 4 history of hypertension: Has been on losartan 25 mg daily if needed small smaller dose of beta mark would be recommended. 5 hyperlipidemia: Resume atorvastatin 10 mg daily. 6 recurrent pancreatitis: Secondary to alcoholism early has not had any further tach he had smaller pseudo-cyst and had pancreatic duct stent in the past at [facility] with no further flareup recurrent pancreatitis. 7 recurrent history of gout: Has been on allopurinol with no flareup lately. 8 BPH: Watch for any urinary retention remain on Flomax 0.4 mg a day resume medication. 9 GI prophylaxis: Patient will be on pantoprazole 40 mg daily. 10 DVT prophylaxis: Continue patient on heparin 5000 units subcu his twice a day. CODE STATUS: Full code. Patient will be admitted to the hospital for a minimum of 2 night stay. Past Medical History Past Medical History: Diabetes Mellitus, Hyperlipidemia Additional Past Medical History / Comment(s): gout, cataracts, pancreatitis History of Any Multi-Drug Resistant Organisms: None Reported Past Surgical History: Cholecystectomy Past Psychological History: No Psychological Hx Reported Smoking Status: Never smoker Past Alcohol Use History: None Reported Past Drug Use History: None Reported - Past Family History Father Family Medical History: Coronary Artery Disease (CAD), Myocardial Infarction ([place]) Mother Family Medical History: CVA/TIA Medications and Allergies Home Medications Medication Instructions Recorded Confirmed Type Atorvastatin [Lipitor] 10 mg PO DAILY 12/23/18 06/06/21 History Latanoprost/Pf [Latanoprost 0.005% 1 drop BOTH EYES HS 12/23/18 06/06/21 History Eye Drop] Repaglinide [Prandin] 2 mg PO BID 12/23/18 06/06/21 History Ubidecarenone [Co Q-10] 200 mg PO DAILY 12/23/18 06/06/21 History glipiZIDE/METFORMIN HCL 2 tab PO BID 12/23/18 06/06/21 History [glipiZIDE/METFORMIN HCL 2.5-500 mg] Allopurinol [Zyloprim] 300 mg PO DAILY PRN 06/06/21 06/06/21 History Ascorbic Acid [Vitamin C] 500 mg PO DAILY 06/06/21 06/06/21 History Cholecalciferol (Vitamin D3) 125 mcg PO DAILY 06/06/21 06/06/21 History [Vitamin D3 (125 MCG = 5,000 IU)] Cyanocobalamin [Vitamin B-12] 500 mcg PO DAILY 06/06/21 06/06/21 History Lipase/Protease/Amylase [Zenpep Dr 1 cap PO TID-W/MEALS 06/06/21 06/06/21 History 40,000 Unit Capsule] Losartan Potassium [Cozaar] 25 mg PO DAILY 06/06/21 06/06/21 History Magnesium Gluconate [Magonate] 500 mg PO DAILY 06/06/21 06/06/21 History Tamsulosin [Flomax] 0.4 mg PO HS 06/06/21 06/06/21 History Vitamin B Complex 1 cap PO DAILY 06/06/21 06/06/21 History Zinc 50 mg PO DAILY 06/06/21 06/06/21 History Aspirin 81 mg PO DAILY 06/07/21 Rx Clopidogrel [Plavix] 75 mg PO DAILY #21 tab 06/07/21 Rx Indomethacin [Indocin] 50 mg PO DAILY PRN #0 06/07/21 06/06/21 Rx Pantoprazole [Protonix] 40 mg PO AC-BRKFST #30 tab 06/07/21 Rx Allergies Allergy/AdvReac Type Severity Reaction Status Date / Time No Known Allergies Allergy Verified 06/06/21 10:49 Physical Exam Vitals: Vital Signs Temp Pulse Resp BP Pulse Ox 06/06/21 09:55 67 18 116/78 97 06/06/21 09:25 99 F 81 18 115/72 98 06/06/21 09:13 99 F 81 18 115/72 98 Intake and Output 06/05/21 06/06/21 06/06/21 22:59 06:59 14:59 Other: Weight 94.347 kg Results CBC & Chem 7: 06/06/21 09:31 06/06/21 09:31 Labs: Abnormal Lab Results - Last 24 Hours (Table) 06/06/21 06/06/21 Range/Units 09:30 09:31 Glucose 121 H (74-99) mg/dL POC Glucose (mg/dL) 114 H (75-99) mg/dL Alkaline Phosphatase 163 H (38-126) U/L
[2021-06-06 20:39] LABS: Glucose,Whole Blood 191 mg/dL (75-99)
[2021-06-06] MEDS ORDERED: METFORMIN HCL PO SCH (21:00)
[2021-06-06] MEDS ORDERED: INSULIN DETEMIR (LEVEMIR) 100 UNIT/ML SYR SQ SCH (21:00)
[2021-06-06] MEDS ORDERED: LATANOPROST 0.005% OPHTH DROPS 2.5 ML BTL BOTH EYES SCH (21:00)
[2021-06-06] MEDS ORDERED: [UNRECOGNIZED DRUG - OTHER] PO SCH (21:00)
[2021-06-06] MEDS ORDERED: GLIPIZIDE PO SCH (21:00)
[2021-06-06] MEDS: HEPARIN SODIUM,PORCINE/PF 5,000 UNIT/0.5 ML SYRINGE SQ SCH (22:08)
[2021-06-07 06:33] LABS: Glucose,Whole Blood 61 mg/dL (75-99)
[2021-06-07] MEDS: INSULIN ASPART (NovoLOG) 100 UNIT/ML VIAL SQ SCH ×2 (06:38→11:26)
[2021-06-07] MEDS ORDERED: PANTOPRAZOLE 40 MG TABLET PO SCH (07:30)
[2021-06-07] MEDS: SODIUM CHLORIDE 0.9% 1,000 ML IV SCH (07:34)
[2021-06-07] MEDS: REPAGLINIDE 1 MG TAB PO SCH (07:42)
[2021-06-07] MEDS: metFORMIN 500 MG TAB PO SCH (07:42)
[2021-06-07] MEDS: HEPARIN SODIUM,PORCINE/PF 5,000 UNIT/0.5 ML SYRINGE SQ SCH (07:43)
[2021-06-07] MEDS: CLOPIDOGREL 75 MG TAB PO SCH (07:43)
[2021-06-07] MEDS ORDERED: ASPIRIN 81 MG PO SCH (09:00)
[2021-06-07] MEDS ORDERED: ASPIRIN 325 MG TAB PO SCH (09:00)
[2021-06-07] MEDS ORDERED: NON FORMULARY DRUG (Ubidecarenone [Co Q-10] 100 MG Capsule) PO SCH (09:00)
[2021-06-07] MEDS ORDERED: ATORVASTATIN 10 MG TAB PO SCH (09:00)
[2021-06-07 09:34] VITALS: TEMP 98
[2021-06-07 11:23] VITALS: BP 116/76; PULSE 66; RESP 16
[2021-06-07 11:26] LABS: Glucose,Whole Blood 101 mg/dL (75-99)
--- NOTE | 2021-06-07 12:23 | P.PN ---
Subjective Progress Note Date: 06/07/21 The patient is seen at bedside and he states he is back to baseline. Denies any further episodes of garbled speech and denies any further facial weakness. Objective - Vital Signs Vital signs: Vital Signs Temp 98.0 F 06/07/21 07:37 Pulse 66 06/07/21 11:18 Resp 16 06/07/21 11:18 BP 116/76 06/07/21 11:18 Pulse Ox 96 06/07/21 11:18 Intake & Output 06/06/21 06/07/21 06/07/21 18:59 06:59 18:59 Intake Total 660 Output Total 1 Balance 659 Weight 94.347 kg Intake: Oral 660 Output: Urine 1 Other: Voiding Method Toilet Toilet # Voids 1 1 - Exam GENERAL: The patient is lying in bed and is not in acute distress. CHEST: The heart rate is regular rate rhythm. No murmurs to auscultation. LUNG: Clear to auscultation bilaterally no wheezing noted throughout. Not labored breathing. ABDOMEN/GI: Bowel sounds present in all 4 quadrants. No tenderness to palpation throughout. NEUROLOGICAL: Higher mental function: The patient is awake, alert, oriented to self, place and time. Patient is following commands. No aphasia and no neglect.. Intact repetition. Cranial nerves: The pupils are round, equal and reactive to light and accommodation. Visual matthews are full to confrontation throughout. Extraocular movement is intact no nystagmus is noted. Facial sensation is normal to touch throughout. The facial strength is ?sublte left nasolabial to normal. Tongue is midline and moved [id number] without any difficulty. No dysarthria is noted. Shoulder shrug is normal bilaterally. Motor: The strength is 5 over 5 throughout. Normal tone and bulk. Cerebellum: Normal finger to nose bilaterally. Sensation: Sensation is normal to touch throughout. Reflexes (right/left): 2+ throughout except ankles are 1+ bilaterally.. Plantars are mute bilaterally. WORK-UP: Patient had few hypglycemic events as low as 61 today 6ish am. TSH: 1.810 HbA1c: 6.7 CT head: Is reported as age related atrophic and chronic small vessel ischemic change without acute intracranial process seen at this time. I personally reviewed CT head and agree with report. CTA head/neck: Is reported as no significant abnormality. MRI Brain w/ and w/o: It is reported as age related atrophic and chronic small vessel ischemic change. No acute intracranial process at this time. No enhancing lesion are seen. I agree with report. 2D echo is reported as borderline concentric left ventricular hypertrophy. EF 55-60%. Normal LA size by volume. - Labs CBC & Chem 7: 06/06/21 09:31 06/06/21 09:31 Labs: Abnormal Lab Results - Last 24 Hours (Table) 06/06/21 06/06/21 06/07/21 Range/Units 09:31 19:46 06:31 POC Glucose (mg/dL) 191 H 61 L (75-99) mg/dL Hemoglobin A1c 6.7 H (0.0-6.0) % 06/07/21 Range/Units 11:24 POC Glucose (mg/dL) 101 H (75-99) mg/dL Hemoglobin A1c (0.0-6.0) % Assessment and Plan Assessment: Transient ischemic attack: aphasia (had garbled speech since 06/05/2021) and had left nasolabial flattening---resolved Hypoglycemia during this admission (as low as 61) Diabetes Mellitus HbA1c: 6.7 Pancreatitis (was told due to stones) History of significant alcohol use in past but stopped years back. Plan: Continue ASA 81mg and Plavix 75mg (both new during this admission). The patient to be on dual antiplatelets for 21 days and after that stop Plavix but continue ASA. Continue Lipitor 10mg daily (will not give higher dose because of his history of pancreatitis). Lipid panel is ordered is pending. PT, OT and PROPERTY AND EQUIPMENT CLERK are consulted Continue neuro checks Continue cardiac monitoring. Avoid hypoglycemia episodes and will defer management to the primary team. Will defer the rest of medical management to the primary team. For DVT prophylaxis: continue subq heparin 5000U every 12 hours. Upon discharge, the patient needs to follow-up with neurologist as outpatient within 1-2 weeks. The plan is discussed with patient and his nurse. He is back to baseline. There is no additional work-up needed from neurological perspective. If he continues to be doing well by later this afternoon he is clear for discharge from neurological perspective. Emiliano Smith M.D. Neuro-Hospitalist Time with Patient: Less than 30
--- NOTE | 2021-06-07 12:38 | P.DS ---
Providers Date of admission: 06/06/21 10:09 Attending physician: Man Jacobsen Consults: 06/06/21 10:09 Consult Physician Routine Consulting Provider: Emiliano Smith Consult Reason/Comments: cva Do you want consulting provider notified?: Yes 06/06/21 10:36 Consult Physician Routine Consulting Provider: Emiliano Smith Consult Reason/Comments: CVA Do you want consulting provider notified?: Yes Primary care physician: [facility] Course: HISTORY OF PRESENT ILLNESS 81-year-old male one of my office patient for over 20 years with past medical history of type 2 diabetes, hypertension, hyperlipidemia, mild atherosclerotic heart disease and chronic neuropathy who had history of recurrent pancreatitis with pancreatic duct stent placed at [facility] 3 years ago has been doing well with no recurrent episode since. Patient also had mild BPH symptoms. Patient has been doing well until late yesterday when he developed to have slight change in his speech the notice that patient had slight change in mentation not responding well and not as sharp as expected. This morning is still not able to keep up with his conversation with speech not been able to answer by the right wording also had slight left facial droop with generalized weakness mild tingling sensation without gross weakness in one side or another. The also remember from yesterday the patient talking to his son he could not complete his conversation and make any sense out of his talk. With all of the above and concern about stroke with his facial Asymmetry along with his dysphagiaended up coming to the emergency department at [facility] where was seen and evaluated initially his vitals were normal, blood test showed no major abnormality mildly elevated blood sugar with A1c of 6.7. Ended up going for CT of the brain which showed age-related atrophy and chronic small vessel disease. CTA showed no significant diameter reduction and circulation to account for patient's symptoms. Patient was giving aspirin and Plavix will consult neurology order an echocardiogram and MRI of the brain at this point. Patient be hospitalized with above problem. He has not had any history of A. fib in the past no history of CVA. 06/07: Patient is feeling much better, he ended up doing CTA and MRI of the brain showed no major stroke at this point. His speech is back to his normal his mobility has improved significantly with no focal deficit at this point. Patient was seen and evaluated by neurology agreed to keep doing the dual antiplatelet agent for total of 3 weeks with aspirin them back on aspirin only. Not able to do higher dose of statin because of the recurrent pancreatitis. Patient had slightly low blood sugar yesterday on insulin and NovoLog both were stopped and patient will be on his home meds at this point been able to take his metformin with the glipizide. Patient is stable to be discharged home today to follow up in the office this week follow-up with neurology as an outpatient if needed. REVIEW OF SYSTEMS Constitutional: No fever, no chills, no night sweats. No weight change. No weakness, fatigue or lethargy. No daytime sleepiness. EENT: No headache. No blurred vision or double vision, no loss of vision. No loss of Hearing, no ringing in the ears, no dizziness. No nasal drainage or congestion. No epistaxis. No sore throat.mild droopy face and the left side Lungs: No shortness of breath, cough, no sputum production. No wheezing. Cardiovascular: No chest pain, no lower extremity edema. No palpitations. No paroxysmal nocturnal dyspnea. No orthopnea. No lightheadedness or dizziness. No syncopal episodes. Abdominal: No abdominal pain. No nausea, vomiting. No diarrhea. No constipation. No bloody or tarry stools.. No loss of appetite. Genitourinary: No dysuria, increased frequency, urgency. No urinary retention. Musculoskeletal: No myalgias. No muscle weakness, no gait dysfunction, no frequent falls. No back pain. No neck pain. Integumentary: No wounds, no lesions. No rash or pruritus. No unusual bruising. No change in hair or nails. Neurologic: positive aphasia. positive facial droop. No change in mentation. No head injury. No headache. No paralysis. No paresthesia. Psychiatric: No depression. No anxiety. No mood swings. Endocrine: No abnormal blood sugars. No weight change. No excessive sweating or thirst. No cold intolerance. PHYSICAL EXAMINATION Gen: This is well-developed no acute respiratory distress. HEENT: Head is atraumatic, normocephalic. Pupils equal, round. Sclerae is anicteric. NECK: Supple. No JVD. No lymphadenopathy. No thyromegaly. LUNGS: Clear to auscultation. No wheezes or rhonchi. No intercostal retractions. HEART: Regular rate and rhythm. No murmur. ABDOMEN: Soft. Bowel sounds are present. No masses. No tenderness. EXTREMITIES: No pedal edema. No calf tenderness. NEUROLOGICAL: Patient is awake, alert and oriented x3. Cranial nerves 2 through 12 are grossly intact, has generalized weakness not able to see any evidence of droopy face at this point I the time I examined him his speech was back to normal.. ASSESSMENT AND PLAN 1.CVA/TIA: Testing with MRI of the brain along with CTA was negative echocardiogram didn't show any active fibrillation or thrombus. Patient will be continued on dual antiplatelet agent along with baby aspirin. 2 aphasia: Secondary to TIA/CVA, the speech therapy patient episode resolved completely. 3 type 2 diabetes: Has been on glipizide/metformin along with Prandin patient apparently has not been taking insulin at home we will discontinue Lantus and NovoLog at this point avoid any hypoglycemia patient will be doing continue glucose monitoring 2 weeks in office. 4 history of hypertension: Has been on losartan 25 mg daily if needed small smaller dose of beta mark would be recommended. 5 hyperlipidemia: Resume atorvastatin 10 mg daily. 6 recurrent pancreatitis: Secondary to alcoholism early has not had any further tach he had smaller pseudo-cyst and had pancreatic duct stent in the past at [facility] with no further flareup recurrent pancreatitis. 7 recurrent history of gout: Has been on allopurinol with no flareup lately. 8 BPH: Watch for any urinary retention remain on Flomax 0.4 mg a day resume medication. Discharge planning: Patient is doing very well will discharge patient home and follow-up as an outpatient next few days. Hospital course: She has done very well's speech improved back to normal, no droopy face left at this point, patient blood pressure was under control, blood sugar was mildly elevated initially than with insulin become quite bit hypoglycemic with been able to go back on his metformin patient diuretic management with home medication was done. Neurology recommendation to do 21 days of dual antiplatelet agent with aspirin and Plavix and only aspirin afterward. Patient stable to be discharged home with follow-up in the office this week follow-up with neurology. Plan - Discharge Summary Discharge Rx Participant: No New Discharge Prescriptions: New Pantoprazole [Protonix] 40 mg PO AC-BRKFST #30 tab Aspirin 81 mg PO DAILY Clopidogrel [Plavix] 75 mg PO DAILY #21 tab Continue Ubidecarenone [Co Q-10] 200 mg PO DAILY Latanoprost/Pf [Latanoprost 0.005% Eye Drop] 1 drop BOTH EYES HS glipiZIDE/METFORMIN HCL [glipiZIDE/METFORMIN HCL 2.5-500 mg] 2 tab PO BID Repaglinide [Prandin] 2 mg PO BID Atorvastatin [Lipitor] 10 mg PO DAILY Cyanocobalamin [Vitamin B-12] 500 mcg PO DAILY Magnesium Gluconate [Magonate] 500 mg PO DAILY Ascorbic Acid [Vitamin C] 500 mg PO DAILY Allopurinol [Zyloprim] 300 mg PO DAILY PRN PRN Reason: gout Losartan Potassium [Cozaar] 25 mg PO DAILY Tamsulosin [Flomax] 0.4 mg PO HS Zinc 50 mg PO DAILY Vitamin B Complex 1 cap PO DAILY Cholecalciferol (Vitamin D3) [Vitamin D3 (125 MCG = 5,000 IU)] 125 mcg PO DAILY Lipase/Protease/Amylase [Zenpep Dr 40,000 Unit Capsule] 1 cap PO TID-W/MEALS Indomethacin [Indocin] 50 mg PO DAILY PRN #0 PRN Reason: gout Discharge Medication List Atorvastatin [Lipitor] 10 mg PO DAILY 12/23/18 [History] Latanoprost/Pf [Latanoprost 0.005% Eye Drop] 1 drop BOTH EYES HS 12/23/18 [History] Repaglinide [Prandin] 2 mg PO BID 12/23/18 [History] Ubidecarenone [Co Q-10] 200 mg PO DAILY 12/23/18 [History] glipiZIDE/METFORMIN HCL [glipiZIDE/METFORMIN HCL 2.5-500 mg] 2 tab PO BID 12/23/18 [History] Allopurinol [Zyloprim] 300 mg PO DAILY PRN 06/06/21 [History] Ascorbic Acid [Vitamin C] 500 mg PO DAILY 06/06/21 [History] Cholecalciferol (Vitamin D3) [Vitamin D3 (125 MCG = 5,000 IU)] 125 mcg PO DAILY 06/06/21 [History] Cyanocobalamin [Vitamin B-12] 500 mcg PO DAILY 06/06/21 [History] Lipase/Protease/Amylase [Zenpep Dr 40,000 Unit Capsule] 1 cap PO TID-W/MEALS 06/06/21 [History] Losartan Potassium [Cozaar] 25 mg PO DAILY 06/06/21 [History] Magnesium Gluconate [Magonate] 500 mg PO DAILY 06/06/21 [History] Tamsulosin [Flomax] 0.4 mg PO HS 06/06/21 [History] Vitamin B Complex 1 cap PO DAILY 06/06/21 [History] Zinc 50 mg PO DAILY 06/06/21 [History] Aspirin 81 mg PO DAILY 06/07/21 [Rx] Clopidogrel [Plavix] 75 mg PO DAILY #21 tab 06/07/21 [Rx] Indomethacin [Indocin] 50 mg PO DAILY PRN #0 06/07/21 [Rx] Pantoprazole [Protonix] 40 mg PO AC-BRKFST #30 tab 06/07/21 [Rx] Follow up Appointment(s)/Referral(s): Man Jacobsen MD [Primary Care Provider] - 1-2 days (Please call the office to schedule an appointment.) Patient Instructions/Handouts: Transient Ischemic Attack (DC) Discharge Disposition: HOME SELF-CARE
[2021-06-07 14:25] LABS: Chol/HDL Ratio 2.74 Ratio; LDL Cholesterol,Calculated 28.8 mg/dL (0.0-131.0); VLDL Calculation 13.48 mg/dL (5.00-40.00)
== END 2021-06-07 13:26 | disposition home or self-care (01) ==
LOC: EC 09:09 → 3SCARD 10:09 → INTOOBSV 10:09 → 3SCARD 10:26 → UNDODISIN 06-07 13:26
PROVIDERS: ADMIT Internal Medicine Geriatric Medicine; ATTEND Internal Medicine Geriatric Medicine
DX: I63.9 Cerebral infarction, unspecified (principal); K86.1 Other chronic pancreatitis; E78.5 Hyperlipidemia, unspecified; I10 Essential (primary) hypertension; R29.810 Facial weakness; R53.1 Weakness; R20.2 Paresthesia of skin; R13.10 Dysphagia, unspecified; R29.701 NIHSS score 1; R41.0 Disorientation, unspecified; R47.01 Aphasia; R74.01 Elevation of levels of liver transaminase levels; I25.10 Atherosclerotic heart disease of native coronary artery without angina pectoris; E11.649 Type 2 diabetes mellitus with hypoglycemia without coma; N40.0 Benign prostatic hyperplasia without lower urinary tract symptoms; M10.9 Gout, unspecified; E11.40 Type 2 diabetes mellitus with diabetic neuropathy, unspecified; I08.1 Rheumatic disorders of both mitral and tricuspid valves; Z87.891 Personal history of nicotine dependence; Z79.02 Long term (current) use of antithrombotics/antiplatelets; Z79.82 Long term (current) use of aspirin; Z79.84 Long term (current) use of oral hypoglycemic drugs; Z79.899 Other long term (current) drug therapy; Z90.49 Acquired absence of other specified parts of digestive tract; Z80.6 Family history of leukemia; Z82.3 Family history of stroke; Z82.49 Family history of ischemic heart disease and other diseases of the circulatory system; Z83.3 Family history of diabetes mellitus
CPT/HCPCS: 96360; 96361 ×2; 96372 ×2; 99285; 36415; 93005; 93306; 80061; 80053; 84443; 84484; 85025; 85610; 85730; 81003; 83036; 71045; 70496; 70450; 70498; 70553; G0378 ×2; A9585; Q9967; J1644 ×2

== ENCOUNTER → 2021-09-04 | Outpatient (CLI) | payer MEDICARE ==
--- NOTE | 2021-09-04 13:05 | XR ---
EXAMINATION TYPE: XR KUB DATE OF EXAM: 09/04/2021 12:46 PM CLINICAL HISTORY: Calculus of kidney. TECHNIQUE: Two supine KUB images of the abdomen are obtained. COMPARISON: CT abdomen and pelvis April 26, 2019. FINDINGS: Persistent small bilateral renal calculi less well seen on plain films versus CT. At least 4 calculi are present bilaterally on plain films measuring up to 6 mm long axis. Overall nonobstructive bowel gas pattern. Surgical clips near level of diaphragmatic hiatus are redem onstrated. Cholecystectomy clips are again seen. Faint calcifications project of chronic pancreatitis are redemonstrated though much better seen on CT. Lung bases remain clear. Visualized osseous struct ures are intact. IMPRESSION: Several small bilateral renal calculi are redemonstrated.
== END | disposition home or self-care (01) ==
LOC: RADXRMAIN 12:29
PROVIDERS: ATTEND Urology
DX: N20.0 Calculus of kidney (principal)
CPT/HCPCS: 74018

== ENCOUNTER → 2021-10-28 | Outpatient (CLI) | payer MEDICARE ==
--- NOTE | 2021-10-29 21:21 | US ---
EXAMINATION TYPE: US kidneys/renal and bladder DATE OF EXAM: 10/28/2021 COMPARISON: 2019 CT CLINICAL HISTORY: R31.0 HEMATURIA. right flank pain EXAM MEASUREMENTS: Right Kidney: 10.5 x 4.6 x 5.1 cm Left Kidney: 10.9 x 6.2 x 6.3 cm Right Kidney: somewhat lobular cortex, several scattered non-obstructing stones measuring 5mm to 8mm in size Left Kidney: lobular cortex, large 8.3cm cyst at the lower pole appears to contain septations, smalle r 1.3cm cyst at the lateral mid pole. Possible 9mm stone at the mid pole, non-obstructing. Bladder: wnl Bilateral Jets seen: bilateral IMPRESSION: Bilateral nonobstructing renal stones. 2. Left renal cysts. Largest is complex at the inferior pole measures 8 cm.
== END | disposition home or self-care (01) ==
LOC: RADUSWWP 08:58
PROVIDERS: ATTEND Urology
DX: N20.0 Calculus of kidney (principal); N28.1 Cyst of kidney, acquired
CPT/HCPCS: 76770

== ENCOUNTER 2022-11-18 21:24 | Emergency (ER) | payer MEDICARE ==
[2022-11-18] MEDS ORDERED: SODIUM CHLORIDE 0.9% 500 ML 500 ML IV STA (22:19)
[2022-11-18] MEDS ORDERED: ACETAMINOPHEN TAB 325 MG TAB PO STA (22:19)
--- NOTE | 2022-11-18 22:25 | ED ---
General Adult HPI - General Chief complaint: Recheck/Abnormal Lab/Rx Stated complaint: Uncontrolled shaking, weakness Time Seen by Provider: 11/18/22 21:58 Source: EMS Mode of arrival: EMS Limitations: no limitations - History of Present Illness Initial comments: This patient is an 82-year-old man who presents with complaint that around 8 PM tonight he was sitting in his basement about to watch football when he developed shaking chills. He states that he was shaking severely, this lasted maybe half hour hour. He decided come here and the symptoms have stopped by arrival here. He does note that he has had some sinus congestion and drainage going back for probably a couple of weeks. He denies dyspnea. There is only minimal cough. No other infectious symptoms. Onset/Timin -: hour(s) Severity scale (1-10): 0 Consistency: now resolved Improves with: none Worsens with: none Associated Symptoms: cough, other (Sinus drainage) Treatments Prior to Arrival: none - Related Data Home Medications Medication Instructions Recorded Confirmed Atorvastatin [Lipitor] 10 mg PO HS 12/23/18 11/18/22 Latanoprost/Pf [Latanoprost 0.005% 1 drop BOTH EYES HS 12/23/18 11/18/22 Eye Drop] Repaglinide [Prandin] 2 mg PO BID 12/23/18 11/18/22 Ubidecarenone [Co Q-10] 200 mg PO DAILY 12/23/18 11/18/22 glipiZIDE/METFORMIN HCL 2 tab PO BID 12/23/18 11/18/22 [glipiZIDE/METFORMIN HCL 2.5-500 mg] Ascorbic Acid [Vitamin C] 500 mg PO DAILY 06/06/21 11/18/22 Cyanocobalamin [Vitamin B-12] 500 mcg PO DAILY 06/06/21 11/18/22 Lipase/Protease/Amylase [Zenpep Dr 40,000 units PO TID-W/MEALS 06/06/21 11/18/22 40,000 Unit Capsule] Losartan Potassium [Cozaar] 25 mg PO DAILY 06/06/21 11/18/22 Magnesium Gluconate [Magonate] 500 mg PO DAILY 06/06/21 11/18/22 Tamsulosin [Flomax] 0.4 mg PO HS 06/06/21 11/18/22 Vitamin B Complex 1 cap PO DAILY 06/06/21 11/18/22 Zinc 50 mg PO DAILY 06/06/21 11/18/22 allopurinoL [Zyloprim] 300 mg PO DAILY PRN 06/06/21 11/18/22 Betamethasone Dipropionate 1 applic TOPICAL BID PRN 11/18/22 11/18/22 [Diprolene AF 0.05% Cream] Cholecalciferol [Vitamin D3 (25 50 mcg PO DAILY 11/18/22 11/18/22 Mcg = 1000 Iu)] Previous Rx's Medication Instructions Recorded Indomethacin [Indocin] 50 mg PO DAILY PRN #0 06/07/21 Allergies Allergy/AdvReac Type Severity Reaction Status Date / Time No Known Allergies Allergy Verified 11/18/22 22:53 Review of Systems ROS Statement: Those systems with pertinent positive or pertinent negative responses have been documented in the HPI. ROS Other: All systems not noted in ROS Statement are negative. Constitutional: Reports: chills. Denies: fever, weakness Eyes: Denies: eye discharge ENT: Reports: congestion. Denies: ear pain, throat pain Respiratory: Reports: cough. Denies: dyspnea, wheezes Cardiovascular: Denies: chest pain, palpitations, edema, syncope Gastrointestinal: Denies: abdominal pain, nausea, vomiting, diarrhea Genitourinary: Denies: dysuria, hematuria Musculoskeletal: Denies: back pain Skin: Denies: rash Neurological: Denies: headache, weakness Past Medical History Past Medical History: Diabetes Mellitus, Hyperlipidemia Additional Past Medical History / Comment(s): gout, cataracts, pancreatitis History of Any Multi-Drug Resistant Organisms: None Reported Past Surgical History: Cholecystectomy Past Anesthesia/Blood Transfusion Reactions: No Reported Reaction Past Psychological History: No Psychological Hx Reported Smoking Status: Never smoker Past Alcohol Use History: Daily Past Drug Use History: None Reported - Past Family History Father Family Medical History: Coronary Artery Disease (CAD), Myocardial Infarction ([place]) Mother Family Medical History: CVA/TIA General Exam Limitations: no limitations General appearance: alert, in no apparent distress Head exam: Present: atraumatic, normocephalic Eye exam: Present: normal appearance. Absent: scleral icterus, conjunctival injection ENT exam: Present: normal oropharynx Neck exam: Present: normal inspection, full ROM. Absent: meningismus Respiratory exam: Present: normal lung sounds bilaterally. Absent: respiratory distress, wheezes, rales, rhonchi, stridor Cardiovascular Exam: Present: regular rate, normal rhythm, normal heart sounds. Absent: systolic murmur, diastolic murmur, rubs, gallop GI/Abdominal exam: Present: soft. Absent: distended, tenderness, guarding, meir ound, rigid, mass Extremities exam: Present: normal inspection, normal capillary refill. Absent: pedal edema, calf tenderness Back exam: Present: normal inspection. Absent: CVA tenderness (R), CVA tenderness (L) Neurological exam: Present: alert Skin exam: Present: warm, dry, intact, normal color. Absent: rash Course Vital Signs 11/18/22 11/18/22 11/18/22 21:40 22:07 22:57 Temperature 99.3 F 97.1 F L Pulse Rate 112 H 109 H 104 H Respiratory 20 20 20 Rate Blood Pressure 130/69 116/66 130/78 O2 Sat by Pulse 97 95 95 Oximetry 11/19/22 02:41 Temperature 99.0 F Pulse Rate 73 Respiratory 18 Rate Blood Pressure 98/60 O2 Sat by Pulse 98 Oximetry Medical Decision Making - Medical Decision Making The patient had chest x-ray which I interpreted as negative for acute infiltrate, pneumothorax, congestive heart failure Was pt. sent in by a medical professional or institution (MENDOZA Galeano, DIESEL LOCOMOTIVE ENGINEER, urgent care, hospital, or senior living...) When possible be specific @ -[No] Did you speak to anyone other than the patient for history (EMS, parent, family, police, friend...)? What history was obtained from this source @ -[No] Did you review nursing and triage notes (agree or disagree)? Why? @ -[I reviewed and agree with nursing and triage notes] Were old charts reviewed (outside hosp., previous admission, EMS record, old EKG, old radiological studies, urgent care reports/EKG's, senior living records)? Report findings @ -[No old charts were reviewed] Differential Diagnosis (chest pain, altered mental status, abdominal pain women, abdominal pain men, vaginal bleeding, weakness, fever, dyspnea, syncope, headache, dizziness, GI bleed, back pain, seizure, CVA, palpatations, mental health, musculoskeletal)? @ -[Differential Fever: Pneumonia, viral URI, endocarditis, myocarditis, pericarditis, otitis, sinusitis, peritonsillar Abscess, retropharyngeal Abscess, epiglottitis, peritonitis, appendicitis, Courtney cystitis, diverticulitis, hepatitis, colitis, UTI, PID, TOA, pyelonephritis, prostatitis, epididymitis, meningitis, encephalitis, pulmonary embolism, CVA, thyroid storm, pancreatitis, adrenal crisis, cavernous sinus thrombosis, this is not meant to be an all-inclusive list. EKG interpreted by me (3pts min.). @ -[I interpreted As above] X-rays interpreted by me (1pt min.). @ -[I interpreted as above CT interpreted by me (1pt min.). @ -[None done] U/S interpreted by me (1pt. min.). @ -[None done] What testing was considered but not performed or refused? (CT, X-rays, U/S, labs)? Why? @ -[None] What meds were considered but not given or refused? Why? @ -[None] Did you discuss the management of the patient with other professionals (professionals i.e. , PA, DIESEL LOCOMOTIVE ENGINEER, lab, RT, psych nurse, social media intern, nuclear equipment test engineer, teacher, global safety officer, case assistant)? Give summary @ -[No] Was smoking cessation discussed for >3mins.? @ -[No] Was critical care preformed (if so, how long)? @ -[No] Were there social determinants of health that impacted care today? How? (Homelessness, low income, unemployed, alcoholism, drug addiction, transportation, low edu. Level, literacy, decrease access to med. care, group home, rehab)? @ -[No] Was there de-escalation of care discussed even if they declined (Discuss DNR or withdrawal of care, Hospice)? DNR status @ -[No] What co-morbidities impacted this encounter? (DM, HTN, Smoking, COPD, CAD, Cancer, CVA, ARF, Chemo, Hep., AIDS, mental health diagnosis, sleep apnea, morbid obesity)? @ -[None] Was patient admitted / discharged? Hospital course, mention meds given and route, prescriptions, significant lab abnormalities, going to OR and other pertinent info. @ -[This patient is an 82-year-old man here to have evaluation of chills/rigor. The patient's workup here is unremarkable other than initially having mild elevation of lactic acid. I did recommend observation admission to see if source of fever could be distinguished, but at this point the patient states she will go home. We discussed appropriate further care and follow-up and he'll return if any symptoms recur or new symptoms develop Undiagnosed new problem with uncertain prognosis? @ -[No] Drug Therapy requiring intensive monitoring for toxicity (Heparin, Nitro, Insulin, Cardizem)? @ -[No] Were any procedures done? @ -[No] Diagnosis/symptom? @ -[Acute fever Acute, or Chronic, or Acute on Chronic? @ -Acute Uncomplicated (without systemic symptoms) or Complicated (systemic symptoms)? @ -[Uncomplicated Side effects of treatment? @ -[No] Exacerbation, Progression, or Severe Exacerbation? @ -[No] Poses a threat to life or bodily function? How? (Chest pain, [place], [place], pneumonia, PE, COPD, DKA, ARF, appy, cholecystitis, CVA, Diverticulitis, Homicidal, Suicidal, threat to staff... and all critical care pts) @ -[Yes there is chance of underlying infection and the patient must have close follow-up - Lab Data Result diagrams: 11/18/22 23:47 11/18/22 22:19 Lab Results 11/18/22 11/18/22 11/18/22 Range/Units 22:19 22:19 22:37 WBC (3.8-10.6) k/uL RBC (4.30-5.90) m/uL Hgb (13.0-17.5) gm/dL Hct (39.0-53.0) % MCV (80.0-100.0) fL MCH (25.0-35.0) pg MCHC (31.0-37.0) g/dL RDW (11.5-15.5) % Plt Count (150-450) k/uL MPV Neutrophils % % Lymphocytes % % Monocytes % % Eosinophils % % Basophils % % Neutrophils # (1.3-7.7) k/uL Lymphocytes # (1.0-4.8) k/uL Monocytes # (0-1.0) k/uL Eosinophils # (0-0.7) k/uL Basophils # (0-0.2) k/uL Sodium 139 (137-145) mmol/L Potassium 5.7 H (3.5-5.1) mmol/L Chloride 108 H (98-107) mmol/L Carbon Dioxide 23 (22-30) mmol/L Anion Gap 8 mmol/L BUN 21 H (9-20) mg/dL Creatinine 0.74 (0.66-1.25) mg/dL Est GFR (CKD-EPI)AfAm >90 (>60 ml/min/1.73 sqM) Est GFR (CKD-EPI)NonAf 87 (>60 ml/min/1.73 sqM) Glucose 339 H (74-99) mg/dL POC Glucose (mg/dL) (70-110) mg/dL POC Glu Fire Control Assistant ID Lactic Ac Sepsis Rflx Plasma Lactic Acid Hemal 2.7 H* (0.7-2.0) mmol/L Calcium 9.0 (8.4-10.2) mg/dL Total Bilirubin 0.8 (0.2-1.3) mg/dL AST 31 (17-59) U/L ALT 29 (4-49) U/L Alkaline Phosphatase 127 H (38-126) U/L Total Protein 5.9 L (6.3-8.2) g/dL Albumin 3.6 (3.5-5.0) g/dL Urine Color Urine Appearance (Clear) Urine pH (5.0-8.0) Ur Specific [place] (1.001-1.035) Urine Protein (Negative) Urine Glucose (UA) (Negative) Urine Ketones (Negative) Urine Blood (Negative) Urine Nitrite (Negative) Urine Bilirubin (Negative) Urine Urobilinogen (<2.0) mg/dL Ur Leukocyte Esterase (Negative) Influenza Type A (PCR) Not Detected (Not Detectd) Influenza Type B (PCR) Not Detected (Not Detectd) RSV (PCR) Not Detected (Not Detectd) SARS-CoV-2 (PCR) Not Detected (Not Detectd) 11/18/22 11/18/22 11/18/22 Range/Units 22:54 22:57 23:47 WBC 9.3 (3.8-10.6) k/uL RBC 4.42 (4.30-5.90) m/uL Hgb 13.4 (13.0-17.5) gm/dL Hct 39.3 (39.0-53.0) % MCV 89.0 (80.0-100.0) fL MCH 30.4 (25.0-35.0) pg MCHC 34.2 (31.0-37.0) g/dL RDW 13.3 (11.5-15.5) % Plt Count 236 (150-450) k/uL MPV 7.8 Neutrophils % 87 % Lymphocytes % 5 % Monocytes % 7 % Eosinophils % 1 % Basophils % 0 % Neutrophils # 8.0 H (1.3-7.7) k/uL Lymphocytes # 0.4 L (1.0-4.8) k/uL Monocytes # 0.6 (0-1.0) k/uL Eosinophils # 0.1 (0-0.7) k/uL Basophils # 0.0 (0-0.2) k/uL Sodium (137-145) mmol/L Potassium (3.5-5.1) mmol/L Chloride (98-107) mmol/L Carbon Dioxide (22-30) mmol/L Anion Gap mmol/L BUN (9-20) mg/dL Creatinine (0.66-1.25) mg/dL Est GFR (CKD-EPI)AfAm (>60 ml/min/1.73 sqM) Est GFR (CKD-EPI)NonAf (>60 ml/min/1.73 sqM) Glucose (74-99) mg/dL POC Glucose (mg/dL) (70-110) mg/dL POC Glu Fire Control Assistant ID Lactic Ac Sepsis Rflx Y Plasma Lactic Acid Hemal (0.7-2.0) mmol/L Calcium (8.4-10.2) mg/dL Total Bilirubin (0.2-1.3) mg/dL AST (17-59) U/L ALT (4-49) U/L Alkaline Phosphatase (38-126) U/L Total Protein (6.3-8.2) g/dL Albumin (3.5-5.0) g/dL Urine Color Yellow Urine Appearance Clear (Clear) Urine pH 6.0 (5.0-8.0) Ur Specific [place] 1.014 (1.001-1.035) Urine Protein Negative (Negative) Urine Glucose (UA) 4+ H (Negative) Urine Ketones Negative (Negative) Urine Blood Negative (Negative) Urine Nitrite Negative (Negative) Urine Bilirubin Negative (Negative) Urine Urobilinogen <2.0 (<2.0) mg/dL Ur Leukocyte Esterase Negative (Negative) Influenza Type A (PCR) (Not Detectd) Influenza Type B (PCR) (Not Detectd) RSV (PCR) (Not Detectd) SARS-CoV-2 (PCR) (Not Detectd) 11/19/22 11/19/22 Range/Units 01:13 01:50 WBC (3.8-10.6) k/uL RBC (4.30-5.90) m/uL Hgb (13.0-17.5) gm/dL Hct (39.0-53.0) % MCV (80.0-100.0) fL MCH (25.0-35.0) pg MCHC (31.0-37.0) g/dL RDW (11.5-15.5) % Plt Count (150-450) k/uL MPV Neutrophils % % Lymphocytes % % Monocytes % % Eosinophils % % Basophils % % Neutrophils # (1.3-7.7) k/uL Lymphocytes # (1.0-4.8) k/uL Monocytes # (0-1.0) k/uL Eosinophils # (0-0.7) k/uL Basophils # (0-0.2) k/uL Sodium (137-145) mmol/L Potassium (3.5-5.1) mmol/L Chloride (98-107) mmol/L Carbon Dioxide (22-30) mmol/L Anion Gap mmol/L BUN (9-20) mg/dL Creatinine (0.66-1.25) mg/dL Est GFR (CKD-EPI)AfAm (>60 ml/min/1.73 sqM) Est GFR (CKD-EPI)NonAf (>60 ml/min/1.73 sqM) Glucose (74-99) mg/dL POC Glucose (mg/dL) 135 H (70-110) mg/dL POC Glu Fire Control Assistant ID Ayan Rush Lactic Ac Sepsis Rflx Plasma Lactic Acid Hemal 1.2 (0.7-2.0) mmol/L Calcium (8.4-10.2) mg/dL Total Bilirubin (0.2-1.3) mg/dL AST (17-59) U/L ALT (4-49) U/L Alkaline Phosphatase (38-126) U/L Total Protein (6.3-8.2) g/dL Albumin (3.5-5.0) g/dL Urine Color Urine Appearance (Clear) Urine pH (5.0-8.0) Ur Specific [place] (1.001-1.035) Urine Protein (Negative) Urine Glucose (UA) (Negative) Urine Ketones (Negative) Urine Blood (Negative) Urine Nitrite (Negative) Urine Bilirubin (Negative) Urine Urobilinogen (<2.0) mg/dL Ur Leukocyte Esterase (Negative) Influenza Type A (PCR) (Not Detectd) Influenza Type B (PCR) (Not Detectd) RSV (PCR) (Not Detectd) SARS-CoV-2 (PCR) (Not Detectd) Disposition Clinical Impression: Fever, Hyperglycemia Disposition: HOME SELF-CARE Condition: Good Instructions (If sedation given, give patient instructions): Fever in Adults (ED) Additional Instructions: Return to the emergency department immediately if any symptoms of infection de velop. Otherwise follow with Dr. Jacosben tomorrow. Blood cultures are pending and you may receive a phone call to start antibiotics Is patient prescribed a controlled substance at d/c from ED?: No Referrals: Man Jacobsen MD [Primary Care Provider] - 1-2 days
[2022-11-18 22:53] LABS: ALT 29 U/L (4-49); African American GFR (CKD) >90 (>60 ml/min/1.73 sqM); Albumin 3.6 g/dL (3.5-5.0); Anion Gap 8 mmol/L; Blood Urea Nitrogen 21 mg/dL (9-20); Carbon Dioxide 23 mmol/L (22-30); Glucose 339 mg/dL (74-99); Non-African American GFR(CKD) 87 (>60 ml/min/1.73 sqM); Potassium 5.7 mmol/L (3.5-5.1); Sodium 139 mmol/L (137-145); Total Bilirubin 0.8 mg/dL (0.2-1.3); Total Protein 5.9 g/dL (6.3-8.2)
[2022-11-18 22:56] LABS: AST 31 U/L (17-59); Alkaline Phosphatase 127 U/L (38-126); Chloride 108 mmol/L (98-107)
[2022-11-18 23:44] LABS: Appearance,Urine Clear (Clear); Bilirubin,Urine Negative (Negative); Blood,Urine Negative (Negative); Color,Urine Yellow; Glucose,Urine (UA) 4+ (Negative); Ketones,Urine Negative (Negative); Leukocyte Esterase,Urine Negative (Negative); Nitrite,Urine Negative (Negative); Protein,Urine Negative (Negative); Specific Gravity,Urine 1.014 (1.001-1.035); Urobilinogen,Urine <2.0 mg/dL (<2.0)
--- NOTE | 2022-11-18 23:47 | XR ---
EXAM: XR Chest, 2 Views CLINICAL HISTORY: ITS.REASON XR Reason: fever TECHNIQUE: Frontal and lateral views of the chest. COMPARISON: No relevant prior studies available. FINDINGS: Lungs: Unremarkable. No consolidation. Pleural space: Unremarkable. No pneumothorax. Heart: Unremarkable. No cardiomegaly. Mediastinum: Unremarkable. Bones/joints: Unremarkable. IMPRESSION: Normal chest x-rays.
[2022-11-18 23:55] LABS: Basophils % (A) 0 %; Eosinophils # (A) 0.1 k/uL (0-0.7); Eosinophils % (A) 1 %; HCT 39.3 % (39.0-53.0); HGB 13.4 gm/dL (13.0-17.5); Lymphocytes # (A) 0.4 k/uL (1.0-4.8); Lymphocytes % (A) 5 %; MCH 30.4 pg (25.0-35.0); MCHC 34.2 g/dL (31.0-37.0); Mean Platelet Volume 7.8; Monocytes # (A) 0.6 k/uL (0-1.0); Monocytes % (A) 7 %; Neutrophils % (A) 87 %; Platelet Count 236 k/uL (150-450); RBC 4.42 m/uL (4.30-5.90); RDW 13.3 % (11.5-15.5); WBC 9.3 k/uL (3.8-10.6)
[2022-11-19] MEDS ORDERED: INSULIN REGULAR 100 UNIT/ML VIAL (IV) SQ STA (00:25)
[2022-11-19] MEDS ORDERED: SODIUM CHLORIDE 0.9% 1,000 ML IV ONE (00:25)
[2022-11-19 01:15] LABS: Glucose,Whole Blood 135 mg/dL (70-110)
[2022-11-19 02:55] VITALS: BP 98/60; PULSE 73; RESP 18; TEMP 99
== END 2022-11-19 02:59 | disposition home or self-care (01) ==
LOC: EC 21:24
DX: R50.9 Fever, unspecified (principal); E11.36 Type 2 diabetes mellitus with diabetic cataract; E11.65 Type 2 diabetes mellitus with hyperglycemia; E78.5 Hyperlipidemia, unspecified; Z79.84 Long term (current) use of oral hypoglycemic drugs; Z79.899 Other long term (current) drug therapy; Z20.822 Contact with and (suspected) exposure to COVID-19; Z90.49 Acquired absence of other specified parts of digestive tract
CPT/HCPCS: 36415; 71046; 80053; 81003; 83605; 85025; 87636; 96360; 96361; 99285

== ENCOUNTER → 2023-05-04 | Day surgery (SDC) | payer MEDICARE ==
[2023-04-28 16:19] VITALS: BMI 26.2
[~2023-05-04] MED LIST: LACTATED RINGERS 1,000 ML IV SCH; LIDOCAINE 1% (10MG/ML) FOR IV START INTRADERMA PRN; METOCLOPRAMIDE 5 MG/ML 2 ML VIAL ONE; MOXIFLOXACIN HCL 0.5% DROPS 3 ML BTL OP PRN; TETRACAINE 0.5% OPHTH (PF) DROPS 4 ML BTL OP PRN; TIMOLOL 0.5% OPHTH DROPS 5 ML BTL OP PRN
[2023-05-04] MEDS: LACTATED RINGERS 1,000 ML IV ONE (08:52)
[2023-05-04] MEDS: CYCLOPENTOLATE 1% OPHTH SOLN 2 ML BTL OP PRN (09:01)
[2023-05-04] MEDS: PHENYLEPHRINE 2.5% OPHTH DRP 2ML OP PRN (09:05)
[2023-05-04 09:23] LABS: Glucose,Whole Blood 143 mg/dL (70-110)
[2023-05-04 09:25] VITALS: BP 129/65; PULSE 74; RESP 16; TEMP 97.5
[2023-05-04] MEDS: METOCLOPRAMIDE 5 MG/ML 2 ML VIAL IVP ONE (10:35)
== END | disposition home or self-care (01) ==
LOC: OR 08:20
PROVIDERS: ATTEND Ophthalmology
DX: Z53.8 Procedure and treatment not carried out for other reasons (principal); H25.11 Age-related nuclear cataract, right eye; H40.1131 Primary open-angle glaucoma, bilateral, mild stage

== ENCOUNTER 2023-05-18 06:52 | Day surgery (SDC) | payer MEDICARE, OTHER ==
[~2023-05-18 06:52] MED LIST changes: -LACTATED RINGERS 1,000 ML IV SCH; -LIDOCAINE 1% (10MG/ML) FOR IV START INTRADERMA PRN; -METOCLOPRAMIDE 5 MG/ML 2 ML VIAL ONE; -MOXIFLOXACIN HCL 0.5% DROPS 3 ML BTL OP PRN; -TIMOLOL 0.5% OPHTH DROPS 5 ML BTL OP PRN
[2023-05-18 07:11] VITALS: TEMP 97.1
[2023-05-18] MEDS: CYCLOPENTOLATE 1% OPHTH SOLN 2 ML BTL OP PRN (07:17)
[2023-05-18] MEDS: PHENYLEPHRINE 2.5% OPHTH DRP 2ML OP PRN (07:20)
[2023-05-18 07:26] LABS: Glucose,Whole Blood 99 mg/dL (70-110)
[2023-05-18] MEDS: LACTATED RINGERS 1,000 ML IV SCH (07:26)
[2023-05-18] MEDS ORDERED: MIDAZOLAM 2 MG/2 ML VIAL ONE (08:07)
[2023-05-18] MEDS ORDERED: fentaNYL (PF) 50 MCG/ML 2 ML AMP ONE (08:07)
[2023-05-18] MEDS: LIDOCAINE 1% (PF) 10MG/ML VIAL MISCELLANE ONE (08:25)
[2023-05-18] MEDS: BALANCED SALT IRRIG SOLN COMB2 15 ML IRRIG.SOLN INTRAOCULA ONE (08:25)
[2023-05-18] MEDS: DUOVISC KIT (GREEN BOX) INTRAOCULA ONE (08:25)
[2023-05-18] MEDS: MOXIFLOXACIN HCL 0.5% DROPS 3 ML BTL OP PRN (08:26)
[2023-05-18] MEDS: TIMOLOL 0.5% OPHTH DROPS 5 ML BTL OP PRN (08:26)
[2023-05-18] MEDS: EPINEPHrine (PF) 1 MG/ML AMP MISCELLANE ONE (08:27)
[2023-05-18] MEDS: EPINEPHrine (PF) 0.3 ML in BALANCED SALT IRRIG SOLN COMB2 500 ML IRRIGATION ONE (08:28)
--- NOTE | 2023-05-18 08:52 | P.OP ---
Date of Procedure: 05/18/23 Preoperative Diagnosis: NS & CS & POAG Postoperative Diagnosis: same Procedure(s) Performed: PIOL & goniotomy, OD Implants: [id number] 18.50 Anesthesia: MAC Surgeon: Ian Romero Pathology: none sent Condition: stable Disposition: same day Indications for Procedure: no complications Operative Findings: No complications
[2023-05-18 09:05] VITALS: BP 108/66; PULSE 81; RESP 20
--- NOTE | 2023-05-18 20:47 | OP ---
OPERATIVE REPORT DATE OF SERVICE : 05/18/2023 PROCEDURE: Phacoemulsification of cataract and intraocular lens implant of the right eye with goniotomy in the right eye. ANESTHESIA: Topical. ESTIMATED BLOOD LOSS: Less than 5 mL. SPECIMEN TAKEN: None. NARRATIVE: After obtaining the appropriate consent, the patient was brought to the operating room. There, he was placed under cardiac monitoring, prepped and draped in the usual sterile manner. He was approached from his right temporal side. Using previously acquired corneal topography information, the axis of 42 degrees was identified and marked with a [employer] Messaging axis marker. At the 11 o'clock position, 1% Xylocaine MPF mixed with 1:1000 epinephrine MPF and balanced salt solution in a ratio of 1:2:1 was injected into the anterior chamber. This was then followed by Trypan blue, which was allowed to dwell in the eye for about 90 seconds. The Trypan blue was then irrigated away and the anterior chamber was then stabilized using Viscoat. At the 9 o'clock position, a 2.5 mm keratome was used to create a self-sealing corneal flap incision in a Langerman fashion. The patient was then asked to rotate his head approximately 45 degrees to his left to maintain gaze in the left direction. A gonioscopy prism was placed on the patient's eye identifying the trabecular meshwork. A [employer] dual blade goniotomy knife was passed across the anterior chamber of the eye; and using a dex and meet method approximately 4 to 4 and half clock hours of nasal trabecular meshwork was removed without difficulty. He was then rotated back to the normal supine position, and a cystotome was introduced to begin a continuous tear capsulorrhexis which was then completed using the Utrata forceps. Hydrodissection and hydrodelineation of the lens were accomplished with balanced salt solution. Phacoemulsification of the lens utilizing phaco chop was accomplished in 2.18 seconds at 12.0% power. Additional, Xylocaine and epinephrine mix was instilled into the anterior chamber. This was followed by removal of the remaining cortical material under irrigation and aspiration as well as careful polishing of the posterior capsule and capsule vacuum mode. It was identified that there was a radial tear at about 3 o'clock; however, it was considered stable at this point to implant the desired implant for his eye. Therefore, Provisc was used to stabilize the capsular bag and the anterior chamber, and an Raghavendra Vivity model D80, 315, 18.5 diopter posterior chamber intraocular lens was inserted carefully into the capsular bag and rotated in alignment with the previously placed corneal axis serrano on his cornea. The remaining viscoelastic was then removed from the anterior chamber; and under the intraocular lens, the eye was then brought to normal intraocular pressure through the paracentesis port; and to ensure watertight integrity, Tisseel was used at the end of the case. He then received 2 drops of 0.5% timolol followed by 2 drops of 0.5% moxifloxacin, was then lightly patched and shielded in the usual manner. There were no complications from the procedure. He tolerated the procedure well and was returned to outpatient recovery in good condition. MMPATRICIO / IJN: [id number] /
== END 2023-05-18 09:53 | disposition home or self-care (01) ==
LOC: OR 06:52
PROVIDERS: ATTEND Ophthalmology
DX: E11.36 Type 2 diabetes mellitus with diabetic cataract (principal); H25.11 Age-related nuclear cataract, right eye; H40.1131 Primary open-angle glaucoma, bilateral, mild stage; I10 Essential (primary) hypertension; E78.5 Hyperlipidemia, unspecified; Z86.73 Personal history of transient ischemic attack (TIA), and cerebral infarction without residual deficits; F10.90 Alcohol use, unspecified, uncomplicated; Z79.84 Long term (current) use of oral hypoglycemic drugs; Z79.899 Other long term (current) drug therapy
CPT/HCPCS: 65820; 66984; V2632; J2250; J0171; J3010; J2001

== ENCOUNTER → 2023-06-21 | Outpatient (CLI) | payer MEDICARE ==
[~2023-06-21] MED LIST changes: +REGADENOSON 0.4 MG/5 ML SYRINGE IV PRN; -TETRACAINE 0.5% OPHTH (PF) DROPS 4 ML BTL OP PRN
--- NOTE | 2023-06-21 11:13 | CA ---
Lexiscan Nuclear Stress Test Report Name: Leon Baugh Exam Date: 06/21/2023 10:08 Exam Location: [place] Stress Ht (in): Wt (lb): BSA: Ordering Phys: Man Jacobsen MD Referring Phys: DANI,, Technologist: AMBER,, Age: 83 Gender: M : 1940 Procedure CPT: Indications: I20.0 unstable angina ICD-10 Codes: Patient History: Chest pressure, hypertension and family history of heart disease Medications: Meds past 24 hrs: Pretest Chest Pain: STRESS TEST Lexiscan Protocol Exercise Duration (min:sec): 01:[address] Depressions (mm): Angina Score: Diop Score: Resting HR (bpm): 68 Peak HR (bpm): 97 Resting BP (mmHg): 131 / 78 Peak BP (mmHg): 136 / 63 MPHR: 139 Target HR: 118 % MPHR: 70 METS: 1.0 Total Dose: Peak Dose: Atropine: Double Product: 17591 BP Response: Stress Termination: INFUSION COMPLETE Stress Symptoms: CHEST PRESSURE,DIFFICULTY IN BREATHING Stress Summary: ECG ANALYSIS Resting ECG: Stress ECG: CONCLUSIONS Nondiagnostic electrocardiogram stress test Dr. Sylvester Rocha MD (Electronically Signed) Final Date: 21 June 2023 11:13
--- NOTE | 2023-06-22 09:58 | NM ---
EXAMINATION TYPE: NM stress lexiscan cardiolite DATE OF EXAM: 06/21/2023 COMPARISON: NONE HISTORY: Unstable angina TECHNIQUE: After the intravenous administration of 10.1 mCi Tc 99m Sestamibi - Cardiolite resting SP ECT images acquired 45 minutes post injection. At peak stress 26.1 mCi Tc 99m Sestamibi - Stress images obtained 40 minutes post injection The patient was stressed with 0.4mg Lexiscan. FINDINGS: No fixed defects are evident No reversible stress defects on Spect images Wall motion is normal Ejection fraction is calculated to be 50 %. Normal greater than 50. IMPRESSION: 1. No stress-induced ischemic changes.
== END | disposition home or self-care (01) ==
LOC: RADNMMAIN 07:57
PROVIDERS: ATTEND Internal Medicine Geriatric Medicine
DX: I20.0 Unstable angina (principal)
CPT/HCPCS: 93017; 78452; A9500; J2785

== ENCOUNTER → 2023-07-12 | Outpatient (CLI) | payer MEDICARE ==
--- NOTE | 2023-07-12 11:22 | XR ---
EXAMINATION TYPE: XR chest 2V DATE OF EXAM: 07/12/2023 COMPARISON: 11/18/2022 INDICATION: Short of breath TECHNIQUE: Frontal and lateral views of the chest are obtained. FINDINGS: The heart size is normal. The pulmonary vasculature is normal. The lungs are clear. IMPRESSION: 1. No acute pulmonary process.
== END | disposition home or self-care (01) ==
LOC: RADXRMAIN 11:04
PROVIDERS: ATTEND Internal Medicine Geriatric Medicine
DX: R06.02 Shortness of breath (principal)
CPT/HCPCS: 71046

== ENCOUNTER 2023-07-13 10:10 | Day surgery (SDC) | payer MEDICARE, OTHER ==
[~2023-07-13 10:10] MED LIST changes: +ONDANSETRON 4 MG/2 ML VIAL IVP ONE; -REGADENOSON 0.4 MG/5 ML SYRINGE IV PRN; +TETRACAINE 0.5% OPHTH (PF) DROPS 4 ML BTL OP PRN
[2023-07-13] MEDS: PHENYLEPHRINE 2.5% OPHTH DRP 2ML OP PRN (10:57)
[2023-07-13] MEDS: CYCLOPENTOLATE 2% OPHTH SOLN 2 ML BTL OP PRN (11:00)
[2023-07-13] MEDS: LACTATED RINGERS 1,000 ML IV SCH (11:00)
[2023-07-13 11:09] LABS: Glucose,Whole Blood 100 mg/dL (70-110)
[2023-07-13 11:38] VITALS: RESP 16; TEMP 98.1
[2023-07-13] MEDS ORDERED: MIDAZOLAM 2 MG/2 ML VIAL ONE (11:46)
[2023-07-13] MEDS ORDERED: fentaNYL (PF) 50 MCG/ML 2 ML AMP ONE (11:46)
[2023-07-13] MEDS: EPINEPHrine (PF) 1 MG/ML AMP MISCELLANE ONE (12:01)
[2023-07-13] MEDS: BALANCED SALT IRRIG SOLN COMB2 15 ML IRRIG.SOLN INTRAOCULA ONE (12:01)
[2023-07-13] MEDS: DUOVISC KIT (GREEN BOX) INTRAOCULA ONE (12:01)
[2023-07-13] MEDS: LIDOCAINE 1% (PF) 10MG/ML VIAL MISCELLANE ONE (12:01)
[2023-07-13] MEDS: TRYPAN BLUE 0.06% SYRINGE 0.5 ML SYRINGE INTRAOCULA ONE (12:02)
[2023-07-13] MEDS: EPINEPHrine (PF) 0.3 ML in BALANCED SALT IRRIG SOLN COMB2 500 ML IRRIGATION ONE (12:03)
[2023-07-13] MEDS: TIMOLOL 0.5% OPHTH DROPS 5 ML BTL OP PRN (12:04)
[2023-07-13] MEDS: MOXIFLOXACIN HCL 0.5% DROPS 3 ML BTL OP PRN (12:04)
[2023-07-13] MEDS: FLUORESCEIN STRIPS 1 MG STRIP LEFT EYE ONE (12:18)
--- NOTE | 2023-07-13 12:27 | P.OP ---
Date of Procedure: 07/13/23 Preoperative Diagnosis: NS & CS & POAG moderate Postoperative Diagnosis: same Procedure(s) Performed: PIOL, OS & goniotomy Implants: [id number] 19.00 Anesthesia: MAC Surgeon: Ian Romero Pathology: none sent Condition: stable Disposition: same day Indications for Procedure: blurry vision Operative Findings: no complications
[2023-07-13 13:34] VITALS: BP 123/75; PULSE 68
--- NOTE | 2023-07-13 13:52 | OP ---
OPERATIVE REPORT DATE OF SERVICE : 07/13/2023 PROCEDURE PERFORMED: Cataract operation with IOL and goniotomy of the left eye. PREOPERATIVE DIAGNOSES: Nuclear sclerosis, cortical sclerosis, and primary open-angle glaucoma moderate stage. ANESTHESIA: Topical. ESTIMATED BLOOD LOSS: None. SPECIMEN TAKEN: None. NARRATIVE: After obtaining the appropriate consent, the patient was brought to the operating room. There he was placed under cardiac monitoring, prepped and draped in the usual sterile manner. He was approached from his left temporal side and at the 5 o'clock position, an MVR blade was used to create a paracentesis port. Through this opening, 1% Xylocaine MPF 50:50 mix with balanced salt solution was injected into the anterior chamber. This was followed by a Trypan blue which was left in the eye for about 90 seconds. This was irrigated away with balanced salt solution and the eye was stabilized with Viscoat. At the 3 o'clock position, a 2.5 mm keratome was used to create a self-sealing corneal flap incision. The patient was then asked to rotate his head approximately 45 degrees to his right and a gonioprism was placed on the patient's eye. The trabecular meshwork was well highlighted with Trypan blue and a [employer] goniotomy knife was advanced across the anterior chamber and using a dex and meet method, the nasal 4 to 5 clock hours of trabecular meshwork was removed without difficulty. The patient was then turned to the normal supine position. A cystotome was used to begin a continuous tear capsulorrhexis which was then completed using the Utrata forceps. Hydrodissection and hydrodelineation of the lens were accomplished with balanced salt solution. Phacoemulsification of the lens utilizing phaco chop was accomplished in 14.44 seconds at 13.1% power. Additional Xylocaine MPF was instilled into the anterior chamber. This was followed by removal of the remaining cortical material under irrigation and aspiration as well as careful polishing of the posterior capsule in the capsule vacuum mode. Provisc was then used to stabilize the capsular bag and an [employer]ine[employer] model CJU677 19.0 diopter posterior chamber intraocular lens was inserted into the capsular bag without difficulty. The remaining viscoelastic was removed from in and around the intraocular lens and the eye was then brought to slightly above normal intraocular pressure and the incisions were confirmed watertight with fluorescein. He then received 2 drops of 5% timolol followed by 2 drops of 0.5% moxifloxacin. He was then lightly patched and shielded in the usual manner. There were no complications from the procedure. He tolerated the procedure well and was returned to outpatient recovery in good condition. AMEAY / ALFA: [id number] /
== END 2023-07-13 13:20 | disposition home or self-care (01) ==
LOC: OR 10:10
PROVIDERS: ATTEND Ophthalmology
DX: E11.36 Type 2 diabetes mellitus with diabetic cataract (principal); H25.12 Age-related nuclear cataract, left eye; E78.5 Hyperlipidemia, unspecified; I10 Essential (primary) hypertension; Z79.84 Long term (current) use of oral hypoglycemic drugs; Z79.899 Other long term (current) drug therapy
CPT/HCPCS: 65820; V2632; J2250; J0171; J3010; J2001

== ENCOUNTER → 2023-11-22 | Outpatient (CLI) | payer MEDICARE ==
[2023-11-22 11:38] LABS: ALT 78 U/L (10-49); AST 61 U/L (14-35); LDL Cholesterol,Calculated 23.5 mg/dL (0.0-131.0)
== END | disposition home or self-care (01) ==
LOC: LABWHC1 08:06
PROVIDERS: ATTEND Internal Medicine Interventional Cardiology
DX: E78.2 Mixed hyperlipidemia (principal)
CPT/HCPCS: 36415; 80061; 84450; 84460

== ENCOUNTER → 2023-12-30 | Outpatient (CLI) | payer MEDICARE ==
[2023-12-30 15:29] LABS: BUN/Creat Ratio 21.86 Ratio (12.00-20.00); Blood Urea Nitrogen 15.3 mg/dL (9.0-27.0); Chol/HDL Ratio 2.53 Ratio; Glucose 105 mg/dL (70-110); LDL Cholesterol,Calculated 26.6 mg/dL (0.0-131.0); VLDL Calculation 9.12 mg/dL (5.00-40.00)
[2023-12-30 15:30] LABS: ALT 42 U/L (10-49); AST 35 U/L (14-35); Albumin 3.7 g/dL (3.8-4.9); Albumin/Globulin Ratio 1.76 Ratio (1.60-3.17); Alkaline Phosphatase 166 U/L (41-126); Calcium 9.4 mg/dL (8.7-10.3); Carbon Dioxide 24.7 mmol/L (21.6-31.8); Chloride 106 mmol/L (96-109); Globulin 2.1 g/dL (1.6-3.3); Potassium 4.4 mmol/L (3.5-5.5); Sodium 142 mmol/L (135-145); Total Bilirubin 0.7 mg/dL (0.3-1.2); Total Protein 5.8 g/dL (6.2-8.2)
== END | disposition home or self-care (01) ==
LOC: LABWHC1 08:12
PROVIDERS: ATTEND Nurse Practitioner Adult Health
DX: I10 Essential (primary) hypertension (principal); E78.2 Mixed hyperlipidemia
CPT/HCPCS: 36415; 80053; 80061

== ENCOUNTER → 2024-05-21 | Outpatient (CLI) | payer MEDICARE ==
--- NOTE | 2024-05-21 15:05 | MR ---
EXAMINATION TYPE: MR brain wo/w con DATE OF EXAM: 05/21/2024 COMPARISON: MRI brain June 06, 2021 HISTORY: Forgetfulness, TECHNIQUE: Multiplanar, multisequence images of the brain and brainstem is performed without and with IV contras t, utilizing 9 mL intravenous Gadobutrol . FINDINGS: Diffusion weighted images demonstrate no evidence of a recent infarct or other diffusion ab normality. There is mild to moderate ventricular and sulcal prominence redemonstrated. There are mul tifocal areas of T2 hyperintensity throughout the deep and periventricular white matter bilaterally r edemonstrated. Lesions are nonspecific in appearance and distribution. Midline structures demonstrate normal morphology. The craniocervical junction appears within normal limits. Post contrast images demonstrate no abnormal enhancement. The dural venous sinuses appear pa tent. The visualized sinuses are clear. Bilateral aphakia is now present. IMPRESSION: There is [id number] diffuse cerebral atrophy and moderate to borderline advanced pr obable chronic small vessel ischemic change redemonstrated. No suspicious enhancement. No significant change from most recent prior MRI. [facility], , 05/21/2024 3:03 PM
== END | disposition home or self-care (01) ==
LOC: RADMRIMAIN 13:09
PROVIDERS: ATTEND Internal Medicine Geriatric Medicine
DX: G31.1 Senile degeneration of brain, not elsewhere classified (principal); R41.3 Other amnesia; H27.03 Aphakia, bilateral
CPT/HCPCS: 70553; A9585

== ENCOUNTER 2024-07-09 05:14 | Observation (INO) | payer MEDICARE ==
--- NOTE | 2024-07-09 05:49 | ED ---
General Adult HPI <TerryOlganavid Bautista - Last Filed: 07/09/24 10:08> - General Source: patient, EMS Mode of arrival: EMS <Ning Oden - Last Filed: 07/09/24 19:11> - General Chief complaint: Fall Stated complaint: Fall Time Seen by Provider: 07/09/24 05:21 - History of Present Illness Initial comments: Patient is an 84-year-old gentleman past medical history of hypertension, prior CVA with a for a fall and generalized weakness. Patient states that he was walking to the bathroom this morning and his legs gave out from under him causing him to fall. Patient states he did not hit his head and landed on his left side. Patient's states that she found him laying on his side with his back up against a door and thinks he may have hit his head on the door. Patient currently denies any head or neck pain. States only injury sustained was an abrasion to his left elbow. Patient's states that patient has had inte rmittent weakness over the last few weeks. She states she feels that his blood pressure has been up and down. Additionally she is concerned because he will have episodes where he gets very sleepy and appears confused and then this resolves spontaneously. Patient denies any chest pain or shortness of breath, he denies recent fevers or chills, nausea, vomiting, abdominal pain, diarrhea, melena, medic easier. Does state he has a sore throat. Denies cough. Denies focal numbness or weakness. (Ning Oden) - Related Data Home Medications Medication Instructions Recorded Confirmed Atorvastatin [Lipitor] 10 mg PO HS 12/23/18 07/09/24 Repaglinide [Prandin] 2 mg PO AC-BID 12/23/18 07/09/24 Ubidecarenone [Co Q-10] 200 mg PO DAILY 12/23/18 07/09/24 glipiZIDE/METFORMIN HCL 2 tab PO BID-W/MEALS 12/23/18 07/09/24 [glipiZIDE/METFORMIN HCL 2.5-500 mg] Ascorbic Acid [Vitamin C] 500 mg PO DAILY 06/06/21 07/09/24 Lipase/Protease/Amylase [Zenpep Dr 40,000 units PO TID-W/MEALS 06/06/21 07/09/24 40,000 Unit Capsule] Losartan Potassium [Cozaar] 25 mg PO QAM 06/06/21 07/09/24 Tamsulosin [Flomax] 0.4 mg PO HS 06/06/21 07/09/24 Cholecalciferol [Vitamin D3 (25 50 mcg PO DAILY 11/18/22 07/09/24 Mcg = 1000 Iu)] Aspirin 81 mg PO DAILY 05/13/23 07/09/24 Alfuzosin HCl [Alfuzosin HCl ER] 10 mg PO HS 07/09/24 07/09/24 Isosorbide Mononitrate ER [Imdur] 30 mg PO DAILY 07/09/24 07/09/24 Magnesium 250 mg PO DAILY 07/09/24 07/09/24 Rivastigmine Tartrate 1.5 mg PO BID-W/MEALS 07/09/24 07/09/24 [Rivastigmine] Allergies Allergy/AdvReac Type Severity Reaction Status Date / Time No Known Allergies Allergy Verified 07/09/24 15:24 Review of Systems ROS Other: All systems not noted in ROS Statement are negative. <Sebastien Stewart - Last Filed: 07/09/24 10:08> ROS Other: All systems not noted in ROS Statement are negative. <Ning Oden - Last Filed: 07/09/24 19:11> ROS Statement: Those systems with pertinent positive or pertinent negative responses have been documented in the HPI. Past Medical History Past Medical History: CVA/TIA, Diabetes Mellitus, Hyperlipidemia, Hypertension, Prostate Disorder Additional Past Medical History / Comment(s): gout, cataracts, pancreati tis,septic with gallbladder, Hx gerd no issues now "minor stroke" History of Any Multi-Drug Resistant Organisms: None Reported Past Surgical History: Cholecystectomy, Orthopedic Surgery Additional Past Surgical History / Comment(s): rt eye cataract, shoulder surgery Past Anesthesia/Blood Transfusion Reactions: No Reported Reaction Additional Past Anesthesia/Blood Transfusion Reaction / Comment(s): no hx blood transfusion Past Psychological History: No Psychological Hx Reported Smoking Status: Former smoker - Past Family History Father Family Medical History: Coronary Artery Disease (CAD), Myocardial Infarction (PA) Mother Family Medical History: CVA/TIA Brother(s) Family Medical History: Cancer <Ning Oden - Last Filed: 07/09/24 19:11> General Exam <Ning Oden - Last Filed: 07/09/24 19:11> - General Exam Comments Initial Comments: PE: CONSTITUTIONAL: No apparent distress, well appearing SKIN: Warm, dry, no jaundice, hives or petechiae, small skin tear to the left elbow EYES: Pupils are equally round, extraocular movements intact without nystagmus, clear conjunctiva, non-icteric sclera HENT: Normocephalic, atraumatic, moist mucus membranes, oropharynx clear without exudates NECK: , C-collar in place, no midline spinal tenderness palpation PULMONARY: Clear to auscultation without wheezes, rhonchi, or rales, normal excursion, no accessory muscle use and no stridor CARDIOVASCULAR: Irregularly irregular rate and rhythm normal S1 and S2. No appreciated murmurs, rubs or gallops. Strong radial pulses with intact distal perfusion. No lower extremity edema GASTROINTESTINAL: Soft, active bowel sounds throughout, non-tender, non- distended, no palpable masses, no rebound or guarding. No hepatosplenomegaly MUSCULOSKELETAL: Extremities have no gross deformity, no edema, redness, or swelling. NEUROLOGIC:_a/o x 3, GCS 15, normal mentation and speech. Moves all extremities x 4 without motor or sensory deficit, no focal neurologic deficits PSYCHIATRIC:_normal mood and affect, thought process is clear and linear (Ning) Course Vital Signs 07/09/24 07/09/24 07/09/24 05:19 07:03 07:38 Temperature 97.6 F 98.2 F Pulse Rate 58 L 64 88 Pulse Rate [ [place] ] Respiratory 18 16 18 Rate Blood Pressure 105/73 128/58 113/62 O2 Sat by Pulse 97 99 96 Oximetry 07/09/24 07/09/24 07/09/24 08:30 10:01 10:35 Temperature Pulse Rate 109 H 94 Pulse Rate [ 114 H [place] ] Respiratory 18 18 Rate Blood Pressure 96/75 92/62 O2 Sat by Pulse 98 95 Oximetry 07/09/24 07/09/24 07/09/24 12:47 14:41 18:43 Temperature Pulse Rate 86 92 111 H Pulse Rate [ [place] ] Respiratory 18 18 18 Rate Blood Pressure 113/74 114/74 143/99 O2 Sat by Pulse 96 97 98 Oximetry EKG Findings - EKG Comments: EKG Findings:: Atrial fibrillation with RVR, rate 122 bpm QT/QTc 304/377 ms, left axis deviation, no significant ST elevations or depressions, no ischemic changes <Ning Oden - Last Filed: 07/09/24 19:11> Medical Decision Making - Lab Data Result diagrams: 07/09/24 07:10 07/09/24 07:10 <Sebastien Stewart - Last Filed: 07/09/24 10:08> - Lab Data Result diagrams: 07/09/24 07:10 07/09/24 07:10 <Ning Oden - Last Filed: 07/09/24 19:11> - Medical Decision Making Laboratory evaluation obtained. CBC within acceptable limits. Coag panel negative. Metabolic panel showed initial hyperglycemia corrected to 173. Viral testing negative. Troponin 0.0. X-ray of the chest shows mild fluid overload state. CT head and C-spine shows no acute processes. Case discussed with hospitalist for admission. Patient had already been started on anticoagulation medications and Cardizem (Sebastien Stewart) Was pt. sent in by a medical professional or institution (, PA, NET MOBILE DEVELOPER, urgent care, hospital, or residential...) When possible be specific @ -No Did you speak to anyone other than the patient for history (EMS, parent, family, police, friend...)? What history was obtained from this source @ -I spoke with patient's who states patient has had intermittent episodes of weakness over the last few weeks Did you review nursing and triage notes (agree or disagree)? Why? @ -I reviewed nursing and triage notes Were old charts reviewed (outside hosp., previous admission, EMS record, old EKG, old radiological studies, urgent care reports/EKG's, residential records)? Report findings @ -Medical records reviewed-Reviewed MRI brain performed 05/21/2024, which showed "mild to moderate diffuse cerebral atrophy and moderate to borderline advancement probable chronic small vessel ischemic change redemonstrated" no suspicious enhancement Differential Diagnosis (chest pain, altered mental status, abdominal pain women, abdominal pain men, vaginal bleeding, weakness, fever, dyspnea, syncope, headache, dizziness, GI bleed, back pain, seizure, CVA, palpatations, mental h ealth, musculoskeletal)? @ -Differential Weakness: Hypoglycemia, shock, sepsis, hyponatremia, anemia, infection, ACS, arrhythmia, adverse medicine reaction, stroke, this is not meant to be an all-inclusive list. EKG interpreted by me (3pts min.). @ -As above X-rays interpreted by me (1pt min.). Pending at time of signout CT interpreted by me (1pt min.). Personally reviewed CT brain and C-spine I see no evidence of hemorrhage, skull fracture or C-spine fracture I agree with radiologist interpretation U/S interpreted by me (1pt. min.). @ -None done What testing was considered but not performed or refused? (CT, X-rays, U/S, labs)? Why? @ -None What meds were considered but not given or refused? Why? @ -None Did you discuss the management of the patient with other professionals (professionals i.e. , PA, NET MOBILE DEVELOPER, lab, RT, psych nurse, oncology social worker, framing carpenter, teacher, probation and parole officer, field nurse case manager)? Give summary @ -No Was smoking cessation discussed for >3mins.? @ -No Was critical care preformed (if so, how long)? Yes 35 minutes Were there social determinants of health that impacted care today? How? (Homelessness, low income, unemployed, alcoholism, drug addiction, transportation, low edu. Level, literacy, decrease access to med. care, penitentiary, rehab)? @ -No Was there de-escalation of care discussed even if they declined (Discuss DNR or withdrawal of care, Hospice)? @ -No What co-morbidities impacted this encounter? (DM, HTN, Smoking, COPD, CAD, Cancer, CVA, ARF, Chemo, Hep., AIDS, mental health diagnosis, sleep apnea, morbid obesity)? @Prior CVA, hypertension Was patient admitted / discharged? Hospital course, mention meds given and route, prescriptions, significant lab abnormalities, going to OR and other pertinent info. @ -Signed out to oncoming physician, Dr. Weinstein, pending completion of workup and anticipated admission- Patient is an 84-year-old gentleman past medical history of hypertension, prior CVA presenting today for generalized weakness and ground-level fall at home. On my assessment patient is a c-collar in place he is awake and alert in no acute distress. Respirations are unlabored. He has an irregularly irregular rhythm on cardiac exam. Abrasion to left elbow without other evidence of trauma. Discussed with patient and plan for CT brain, C-spine, chest x-ray, comprehensive labs, EKG they are agreeable plan of care. Of note patient's states due to his repetitive fall she would prefer he be admitted due to concern for safety if returns home today. EKG showed A-fib with RVR. Patient has no history of atrial fibrillation. Patient was transferred to a room with a traffic monitor specialist. He was given a 22 mg Cardizem bolus with subsequent rate control. CT brain and C-spine negative for acute traumatic process. Did note left paranasal sinusitis. After reviewing patient's imaging I updated patient to imaging findings and cleared their C-Spine. There is no midline cervical neck tenderness or step-offs. The patient denies any numbess, tingling, or weakness of the extremities when moving neck through full ROM. The patient is able to range their neck completely without midline cervical pain, numbness, tingling or weakness. I discussed with the patient findings of sinusitis, he states he has had a persistent clear runny nose for the last few weeks that he thought was improving until a few days ago when he had worsening symptoms with thick yellow rhinorrhea. For this reason it appears patient has contracted acute bacterial s inusitis and will be started on Augmentin. Labs are significant for magnesium 1.1. Replacement ordered. Blood glucose of 44. Patient was given amp of D50. On recheck was 173. Heart rate did come up to 106 so was started cardizem, heparin infusion. Updated pt and to findings and anticipated admission. Pending completion of chest x-ray, and admission patient was signed out to oncoming physician Dr. Weinstein. Undiagnosed new problem with uncertain prognosis? @ -No Drug Therapy requiring intensive monitoring for toxicity (Heparin, Nitro, Insulin, Cardizem)? @ -No Were any procedures done? @ -No Diagnosis/symptom? new onset atrial fibrillation/ a fib with RvR, generalized weakness, h ypoglycemia, hypomagnesemia Acute, or Chronic, or Acute on Chronic? @ acute Uncomplicated (without systemic symptoms) or Complicated (systemic symptoms)? complicated Side effects of treatment? @ -No Exacerbation, Progression, or Severe Exacerbation? @ -No Poses a threat to life or bodily function? How? (Chest pain, USA, PA, pneumonia, PE, COPD, DKA, ARF, appy, cholecystitis, CVA, Diverticulitis, Homicidal, Suicidal, threat to staff... and all critical care pts) @Yes (Ning Oden) - Lab Data Lab Results 07/09/24 07/09/24 07/09/24 Range/Units 07:10 07:10 07:10 WBC 6.02 (4.50-10.00) 10*3/uL RBC 4.38 L (4.40-5.60) 10*6/uL Hgb 13.3 (13.0-17.0) g/dL Hct 38.2 L (39.6-50.0) % MCV 87.2 (80.0-97.0) fL MCH 30.4 (27.0-32.0) pg MCHC 34.8 (32.0-37.0) g/dL Plt Count 269 (140-440) 10*3/uL MPV 9.3 L (9.5-12.2) fL Immature Gran % (Auto) 1.3 % Neutrophils % 82.6 % Lymphocytes % 4.3 % Monocytes % 11.5 % Eosinophils % 0.0 % Basophils % 0.3 % Immature Gran # 0.08 H (0.00-0.04) 10*3/uL Neutrophils # 4.97 (1.80-7.70) 10*3/uL Lymphocytes # 0.26 L (0.90-5.00) 10*3/uL Monocytes # 0.69 (0.20-1.00) 10*3/uL Eosinophils # 0.00 L (0.04-0.35) 10*3/uL Basophils # 0.02 (0.00-0.10) 10*3/uL PT 11.8 (10.0-12.5) sec INR 1.1 (<1.2) APTT 23.3 (22.0-30.0) sec Sodium 137 (137-145) mmol/L Potassium 4.0 (3.5-5.1) mmol/L Chloride 103 (98-107) mmol/L Carbon Dioxide 22 (22-30) mmol/L Anion Gap 12 mmol/L BUN 25 H (9-20) mg/dL Creatinine 0.73 (0.66-1.25) mg/dL Est GFR (CKD-EPI)AfAm >90 (>60 ml/min/1.73 sqM) Est GFR (CKD-EPI)NonAf 86 (>60 ml/min/1.73 sqM) Glucose 44 L* (74-99) mg/dL POC Glucose (mg/dL) (70-110) mg/dL POC Glu Traffic Control Flagger ID Calcium 9.1 (8.4-10.2) mg/dL Magnesium 1.1 L (1.6-2.3) mg/dL Total Bilirubin 0.9 (0.2-1.3) mg/dL AST 36 (17-59) U/L ALT 37 (4-49) U/L Alkaline Phosphatase 168 H (38-126) U/L Troponin I (0.000-0.034) ng/mL Total Protein 5.6 L (6.3-8.2) g/dL Albumin 3.1 L (3.5-5.0) g/dL TSH 2.460 (0.465-4.680) mIU/L Influenza Type A (PCR) (Not Detectd) Influenza Type B (PCR) (Not Detectd) RSV (PCR) (Not Detectd) SARS-CoV-2 (PCR) (Not Detectd) 07/09/24 07/09/24 07/09/24 Range/Units 07:10 07:21 08:00 WBC (4.50-10.00) 10*3/uL RBC (4.40-5.60) 10*6/uL Hgb (13.0-17.0) g/dL Hct (39.6-50.0) % MCV (80.0-97.0) fL MCH (27.0-32.0) pg MCHC (32.0-37.0) g/dL Plt Count (140-440) 10*3/uL MPV (9.5-12.2) fL Immature Gran % (Auto) % Neutrophils % % Lymphocytes % % Monocytes % % Eosinophils % % Basophils % % Immature Gran # (0.00-0.04) 10*3/uL Neutrophils # (1.80-7.70) 10*3/uL Lymphocytes # (0.90-5.00) 10*3/uL Monocytes # (0.20-1.00) 10*3/uL Eosinophils # (0.04-0.35) 10*3/uL Basophils # (0.00-0.10) 10*3/uL PT (10.0-12.5) sec INR (<1.2) APTT (22.0-30.0) sec Sodium (137-145) mmol/L Potassium (3.5-5.1) mmol/L Chloride (98-107) mmol/L Carbon Dioxide (22-30) mmol/L Anion Gap mmol/L BUN (9-20) mg/dL Creatinine (0.66-1.25) mg/dL Est GFR (CKD-EPI)AfAm (>60 ml/min/1.73 sqM) Est GFR (CKD-EPI)NonAf (>60 ml/min/1.73 sqM) Glucose (74-99) mg/dL POC Glucose (mg/dL) 48 L* (70-110) mg/dL POC Glu Traffic Control Flagger ID Dejan Amaya Calcium (8.4-10.2) mg/dL Magnesium (1.6-2.3) mg/dL Total Bilirubin (0.2-1.3) mg/dL AST (17-59) U/L ALT (4-49) U/L Alkaline Phosphatase (38-126) U/L Troponin I 0.022 (0.000-0.034) ng/mL Total Protein (6.3-8.2) g/dL Albumin (3.5-5.0) g/dL TSH (0.465-4.680) mIU/L Influenza Type A (PCR) Not Detected (Not Detectd) Influenza Type B (PCR) Not Detected (Not Detectd) RSV (PCR) Not Detected (Not Detectd) SARS-CoV-2 (PCR) Not Detected (Not Detectd) 07/09/24 Range/Units 09:06 WBC (4.50-10.00) 10*3/uL RBC (4.40-5.60) 10*6/uL Hgb (13.0-17.0) g/dL Hct (39.6-50.0) % MCV (80.0-97.0) fL MCH (27.0-32.0) pg MCHC (32.0-37.0) g/dL Plt Count (140-440) 10*3/uL MPV (9.5-12.2) fL Immature Gran % (Auto) % Neutrophils % % Lymphocytes % % Monocytes % % Eosinophils % % Basophils % % Immature Gran # (0.00-0.04) 10*3/uL Neutrophils # (1.80-7.70) 10*3/uL Lymphocytes # (0.90-5.00) 10*3/uL Monocytes # (0.20-1.00) 10*3/uL Eosinophils # (0.04-0.35) 10*3/uL Basophils # (0.00-0.10) 10*3/uL PT (10.0-12.5) sec INR (<1.2) APTT (22.0-30.0) sec Sodium (137-145) mmol/L Potassium (3.5-5.1) mmol/L Chloride (98-107) mmol/L Carbon Dioxide (22-30) mmol/L Anion Gap mmol/L BUN (9-20) mg/dL Creatinine (0.66-1.25) mg/dL Est GFR (CKD-EPI)AfAm (>60 ml/min/1.73 sqM) Est GFR (CKD-EPI)NonAf (>60 ml/min/1.73 sqM) Glucose (74-99) mg/dL POC Glucose (mg/dL) 173 H (70-110) mg/dL POC Glu Traffic Control Flagger ID Cory Noble Calcium (8.4-10.2) mg/dL Magnesium (1.6-2.3) mg/dL Total Bilirubin (0.2-1.3) mg/dL AST (17-59) U/L ALT (4-49) U/L Alkaline Phosphatase (38-126) U/L Troponin I (0.000-0.034) ng/mL Total Protein (6.3-8.2) g/dL Albumin (3.5-5.0) g/dL TSH (0.465-4.680) mIU/L Influenza Type A (PCR) (Not Detectd) Influenza Type B (PCR) (Not Detectd) RSV (PCR) (Not Detectd) SARS-CoV-2 (PCR) (Not Detectd) Disposition Decision Time: 10:08 <Sebastien Stewart - Last Filed: 07/09/24 10:08> <Ning Oden - Last Filed: 07/09/24 19:11> Clinical Impression: Dysrhythmia Disposition: ADMITTED IP TO THIS HOSP Condition: Fair
[2024-07-09] MEDS: DILTIAZEM 5 MG/ML 5 ML VIAL IVP STA (07:17)
[2024-07-09 07:20] LABS: Basophils # (A) 0.02 10*3/uL (0.00-0.10); Basophils % (A) 0.3 %; HCT 38.2 % (39.6-50.0); HGB 13.3 g/dL (13.0-17.0); Lymphocytes # (A) 0.26 10*3/uL (0.90-5.00); Lymphocytes % (A) 4.3 %; MCH 30.4 pg (27.0-32.0); MCHC 34.8 g/dL (32.0-37.0); MCV 87.2 fL (80.0-97.0); Mean Platelet Volume 9.3 fL (9.5-12.2); Monocytes # (A) 0.69 10*3/uL (0.20-1.00); Monocytes % (A) 11.5 %; Neutrophils # (A) 4.97 10*3/uL (1.80-7.70); Neutrophils % (A) 82.6 %; Platelet Count 269 10*3/uL (140-440); RBC 4.38 10*6/uL (4.40-5.60); RDW 12.8 % (11.5-14.5); WBC 6.02 10*3/uL (4.50-10.00)
[2024-07-09] MEDS: SODIUM CHLORIDE 0.9% 1,000 ML IV ONE (07:21)
[2024-07-09] MEDS: ACETAMINOPHEN TAB 500 MG TAB PO STA (07:22)
[2024-07-09 07:38] LABS: ALT 37 U/L (4-49); AST 36 U/L (17-59); African American GFR (CKD) >90 (>60 ml/min/1.73 sqM); Albumin 3.1 g/dL (3.5-5.0); Alkaline Phosphatase 168 U/L (38-126); Anion Gap 12 mmol/L; Blood Urea Nitrogen 25 mg/dL (9-20); Calcium 9.1 mg/dL (8.4-10.2); Carbon Dioxide 22 mmol/L (22-30); Chloride 103 mmol/L (98-107); Magnesium 1.1 mg/dL (1.6-2.3); Non-African American GFR(CKD) 86 (>60 ml/min/1.73 sqM); Sodium 137 mmol/L (137-145); Total Bilirubin 0.9 mg/dL (0.2-1.3); Total Protein 5.6 g/dL (6.3-8.2)
[2024-07-09 07:45] LABS: INR 1.1 (<1.2); Partial Thromboplastin Time 23.3 sec (22.0-30.0); Prothrombin Time 11.8 sec (10.0-12.5)
--- NOTE | 2024-07-09 07:54 | CT ---
EXAMINATION TYPE: CT brain cspine wo con DATE OF EXAM: 07/09/2024 7:38 AM COMPARISON: 06/06/2021 CLINICAL INDICATION: Male, 84 years old with history of Fall, pain Technique: Examination of the head was done in axial plane without intravenous contrast. Coronal and sagittal reconstructions performed. CT of the cervical spine was obtained in axial plane without intravenous injection of contrast mater ial. Coronal and sagittal reformatted images were obtained from the axial views for evaluation of f ractures, spinal alignment and canal. CT DLP: 1543.7 mGycm, Automated exposure control for dose reduction was used. FINDINGS: Head: There is no evidence of acute intracranial hemorrhage, acute ischemic changes, mass, mass-effect, or extra-axial fluid collection. There is no effacement of cerebral sulci or basal subarachnoid cister ns. There is no hydrocephalus. There is no midline shift. Jacques-white matter distinction is preserv ed. Complete opacification of the left maxillary sinus, moderate to severe within the left ethmoid air ce lls, and moderate within the left frontal sinus with air-fluid level. Orbits and globes are intact. M astoid air cells well pneumatized. Redemonstrated old lacunar infarcts left basal ganglia along with moderate patchy white matter hypode nsities in both cerebral hemispheres. Mild age-related volume loss overlying the bilateral cerebral c onvexities. Cervical spine: No craniocervical junction abnormality, predental space widening, or prevertebral soft tissue swellin g. Moderate multilevel facet and uncovertebral joint arthropathy. Severe disc/endplate degenerative mccord ge C4-C7 levels. No brenda canal compromise by CT. Alignment is maintained. No acute fracture seen. Moderate to severe right neuroforaminal stenosis at C4-C5 and moderate on the left. Mild to moderate on both sides at C5-C6. Emphysematous change in the upper lungs. Sagittal and coronal reformatted images confirm above findings. COMBINED IMPRESSION: 1. Moderate patchy burden of chronic small vessel ischemic disease. No acute intracranial abnormality seen. 2. No acute fracture or malalignment of the cervical spine. Moderate to advanced spondylotic change a s above. 3. Severe left-sided paranasal sinus disease with possible acute left frontal sinusitis. Consider ENT referral especially if symptomatic. [facility], , 07/09/2024 7:52 AM
[2024-07-09 07:55] LABS: Glucose 44 mg/dL (74-99)
[2024-07-09] MEDS: DEXTROSE 50% SYRINGE 50 ML IVP STA (08:00)
[2024-07-09 08:01] LABS: Glucose,Whole Blood 48 mg/dL (70-110)
[2024-07-09] MEDS: MAGNESIUM SULFATE-D5W PMX 1 GM in DEXTROSE/WATER 1 100ML.BAG IVPB SCH (08:08)
[2024-07-09] MEDS: DILTIAZEM 125 MG in DEXTROSE 5% IN WATER 100 ML IV SCH (08:13)
[2024-07-09 08:42] LABS: Influenza A Not Detected (Not Detectd); Influenza B Not Detected (Not Detectd)
[2024-07-09 08:43] LABS: RSV Not Detected (Not Detectd)
[2024-07-09 09:08] LABS: Glucose,Whole Blood 173 mg/dL (70-110)
[2024-07-09] MEDS: AMOXIC-POT CLAV 875-125MG 1 EACH TAB PO SCH (09:19)
[2024-07-09] MEDS: HEPARIN SODIUM 1,000 UN/ML (10ML VL) IV ONE (09:22)
[2024-07-09] MEDS: HEPARIN SOD,PORK IN 0.45% NACL 25,000 UNIT in 0.45% NACL 1 250ML.BAG IV SCH (09:23)
--- NOTE | 2024-07-09 09:26 | XR ---
EXAMINATION TYPE: XR chest 2V DATE OF EXAM: 07/09/2024 CLINICAL INDICATION: Male, 84 years old with history of Weakness, TECHNIQUE: Frontal and lateral views of the chest are obtained. COMPARISON: Chest x-ray July 12, 2023 FINDINGS: There is no suspicious peripheral focal air space opacity, pleural effusion, or pneumothor ax seen. The cardiac silhouette size is upper limits of normal. Mild increased central markings bi laterally. The osseous structures are intact. IMPRESSION: Possible mild fluid overload state. Correlate clinically. [facility], , 07/09/2024 9:24 AM
[2024-07-09] MEDS ORDERED: NALOXONE 0.4 MG/ML 1 ML VIAL IV PRN (10:06)
[2024-07-09 10:53] LABS: Appearance,Urine Clear (Clear); Bilirubin,Urine Negative (Negative); Blood,Urine Negative (Negative); Color,Urine Yellow; Glucose,Urine (UA) Negative (Negative); Ketones,Urine Trace (Negative); Leukocyte Esterase,Urine Negative (Negative); Nitrite,Urine Negative (Negative); PH, Urine 5.5 (5.0-8.0); Protein,Urine Negative (Negative); Specific Gravity,Urine 1.015 (1.001-1.035); Urobilinogen,Urine <2.0 mg/dL (<2.0)
[2024-07-09] MEDS ORDERED: DEXTROSE 50% SYRINGE 50 ML IVP PRN ×2 (14:01)
--- NOTE | 2024-07-09 14:03 | P.HPIM ---
History of Present Illness H&P Date: 07/09/24 History of present illness; patient is a 84-year-old gentleman with past medical history significant for hypertension, diabetes mellitus, CVA who presented to the ER because of fall. Patient said he woke up this morning to go to the restroom at that time patient legs gave up and he fell. Patient stated he did not hit his head. Patient did not lose consciousness. There was no weakness of any extremity. There was no complaint of slurred speech. Patient had to call his son for help as his was sleeping in the room. Patient any chest pain there is no complaint of orthopnea or PND. There is no current nausea, vomiting abdominal pain. Initial lab work done in the ER showed WBC 6.02, hemoglobin 13.3, platelet count 269, sodium 137, potassium 4, BUN 25, creatinine 0.73, glucose 44 calcium 9.1, magnesium 1.1 bilirubin 0.9, AST 36, ALT 37, troponin 0.022 UA negative for infection Influenza A not detected Influenza B not detected RSV not detected COVID-19 not detected EKG done in the ER showed heart rate of123, no ST segment elevation or depression seen, no T-wave inversions seen. Chest x-ray done in the ER possible mild fluid overload state CT head done showed no acute intracranial process, moderate patchy burden of chronic small vessel ischemic changes CT cervical spine done showed no acute fracture or malalignment of the cervical spine Patient admitted to internal medicine service REVIEW OF SYSTEMS: CONSTITUTIONAL: No fever, no malaise, no fatigue. HEENT: No recent visual problems or hearing problems. Denied any sore throat. CARDIOVASCULAR: As mentioned above PULMONARY: As mentioned above GASTROINTESTINAL: No diarrhea, no nausea, no vomiting, no abdominal pain. NEUROLOGICAL: No headaches, no weakness, no numbness. HEMATOLOGICAL: Denies any bleeding or petechiae. GENITOURINARY: Denies any burning micturition, frequency, or urgency. MUSCULOSKELETAL/RHEUMATOLOGICAL: Denies any joint pain, swelling, or any muscle pain. ENDOCRINE: Denies any polyuria or polydipsia. The rest of the 14-point review of systems is negative. PHYSICAL EXAMINATION: GENERAL: The patient is alert and oriented x3, not in any acute distress. Well developed, well nourished. HEENT: Pupils are round and equally reacting to light. EOMI. No scleral icterus. No conjunctival pallor. Normocephalic, atraumatic. No pharyngeal erythema. No thyromegaly. CARDIOVASCULAR: S1 and S2 present. No murmurs, rubs, or gallops. Irregular rate and rhythm PULMONARY: Chest is clear to auscultation, no wheezing or crackles. ABDOMEN: Soft, nontender, nondistended, normoactive bowel sounds. No palpable organomegaly. MUSCULOSKELETAL: No joint swelling or deformity. EXTREMITIES: No cyanosis, clubbing, or pedal edema. NEUROLOGICAL: Gross neurological examination did not reveal any focal deficits. SKIN: No rashes. Assessment and plan A-fib with RVR Hypoglycemia Fall Left frontal sinusitis Hypomagnesium History of hypertension History of diabetes mellitus Monitor vital signs Monitor CBC Monitor CMP Continue telemetry monitoring Trend troponin Ordered 2D echo Currently on pharmacy dose heparin Continue Augmentin for 1 week Ordered lipid panel Order HbA1c level Ordered vitamin B12, folate level Resume home meds Consult cardiology Consult PT and OT Labs and medication were reviewed.. Continue same treatment. Continue with symptomatic treatment. Resume home medication. Monitor labs and vitals. DVT and GI prophylaxis. Further recommendations as per clinical course of the patient Dictation was produced using [employer] dictation software. please excuse any grammatical, word or spelling errors. Past Medical History Past Medical History: CVA/TIA, Diabetes Mellitus, Hyperlipidemia, Hypertension, Prostate Disorder Additional Past Medical History / Comment(s): gout, cataracts, pancreatitis,septic with gallbladder, Hx gerd no issues now "minor stroke" History of Any Multi-Drug Resistant Organisms: None Reported Past Surgical History: Cholecystectomy, Orthopedic Surgery Additional Past Surgical History / Comment(s): rt eye cataract, shoulder surgery Past Anesthesia/Blood Transfusion Reactions: No Reported Reaction Additional Past Anesthesia/Blood Transfusion Reaction / Comment(s): no hx blood transfusion Past Psychological History: No Psychological Hx Reported Smoking Status: Former smoker - Past Family History Father Family Medical History: Coronary Artery Disease (CAD), Myocardial Infarction (CT) Mother Family Medical History: CVA/TIA Brother(s) Family Medical History: Cancer Medications and Allergies Home Medications Medication Instructions Recorded Confirmed Type Atorvastatin [Lipitor] 10 mg PO HS 12/23/18 07/11/23 History Latanoprost/Pf [Latanoprost 0.005% 1 drop BOTH EYES HS 12/23/18 07/11/23 History Eye Drop] Repaglinide [Prandin] 2 mg PO BID 12/23/18 07/11/23 History Ubidecarenone [Co Q-10] 200 mg PO DAILY 12/23/18 07/11/23 History glipiZIDE/METFORMIN HCL 2 tab PO BID 12/23/18 07/11/23 History [glipiZIDE/METFORMIN HCL 2.5-500 mg] Ascorbic Acid [Vitamin C] 500 mg PO DAILY 06/06/21 07/11/23 History Lipase/Protease/Amylase [Zenpep Dr 40,000 units PO TID-W/MEALS 06/06/21 07/11/23 History 40,000 Unit Capsule] Losartan Potassium [Cozaar] 25 mg PO QAM 06/06/21 07/11/23 History Magnesium Gluconate [Magonate] 500 mg PO DAILY 06/06/21 07/11/23 History Tamsulosin [Flomax] 0.4 mg PO HS 06/06/21 07/11/23 History Cholecalciferol [Vitamin D3 (25 50 mcg PO DAILY 11/18/22 07/11/23 History Mcg = 1000 Iu)] Aspirin 162 mg PO DAILY 05/13/23 07/11/23 History Allergies Allergy/AdvReac Type Severity Reaction Status Date / Time No Known Allergies Allergy Verified 07/13/23 10:40 Physical Exam Vitals: Vital Signs Temp Pulse Pulse Resp BP Pulse Ox 07/09/24 12:47 86 18 113/74 96 07/09/24 10:35 94 18 92/62 95 07/09/24 10:01 114 H 07/09/24 08:30 109 H 18 96/75 98 07/09/24 07:38 88 18 113/62 96 07/09/24 07:03 98.2 F 64 16 128/58 99 07/09/24 05:19 97.6 F 58 L 18 105/73 97 Intake and Output 07/08/24 07/09/24 07/09/24 22:59 06:59 14:59 Other: Weight 88.904 kg Results CBC & Chem 7: 07/09/24 07:10 07/09/24 07:10 Labs: Abnormal Lab Results - Last 24 Hours (Table) 07/09/24 07/09/24 07/09/24 Range/Units 07:10 07:10 08:00 RBC 4.38 L (4.40-5.60) 10*6/uL Hct 38.2 L (39.6-50.0) % MPV 9.3 L (9.5-12.2) fL Immature Gran # 0.08 H (0.00-0.04) 10*3/uL Lymphocytes # 0.26 L (0.90-5.00) 10*3/uL Eosinophils # 0.00 L (0.04-0.35) 10*3/uL BUN 25 H (9-20) mg/dL Glucose 44 L* (74-99) mg/dL POC Glucose (mg/dL) 48 L* (70-110) mg/dL Magnesium 1.1 L (1.6-2.3) mg/dL Alkaline Phosphatase 168 H (38-126) U/L Total Protein 5.6 L (6.3-8.2) g/dL Albumin 3.1 L (3.5-5.0) g/dL Urine Ketones (Negative) 07/09/24 07/09/24 Range/Units 09:06 10:38 RBC (4.40-5.60) 10*6/uL Hct (39.6-50.0) % MPV (9.5-12.2) fL Immature Gran # (0.00-0.04) 10*3/uL Lymphocytes # (0.90-5.00) 10*3/uL Eosinophils # (0.04-0.35) 10*3/uL BUN (9-20) mg/dL Glucose (74-99) mg/dL POC Glucose (mg/dL) 173 H (70-110) mg/dL Magnesium (1.6-2.3) mg/dL Alkaline Phosphatase (38-126) U/L Total Protein (6.3-8.2) g/dL Albumin (3.5-5.0) g/dL Urine Ketones Trace H (Negative)
--- NOTE | 2024-07-09 18:09 | CA ---
Transthoracic Echo Report Name: Leon Baugh Age: 84 Gender: M : 1940 Exam Date: 07/09/2024 15:16 Exam Location: [facility] Ht (in): 72 Wt (lb): 196 Ordering Physician: Troy Frias MD Attending/Referring Phys: Mason Tender [employer] Azul Bowling RDCS Procedure CPT: Indications: SHORTNESS OF BREATH Cardiac Hx: Technical Quality: Fair Contrast 1: Total Dose (mL): Contrast 2: Total Dose (mL): MEASUREMENTS (Male / Female) Normal Values 2D ECHO LV Diastolic Diameter PLAX 4.7 cm 4.2 - 5.9 / 3.9 - 5.3 cm LV Systolic Diameter PLAX 3.7 cm IVS Diastolic Thickness 1.1 cm 0.6 - 1.0 / 0.6 - 0.9 cm LVPW Diastolic Thickness 1.3 cm 0.6 - 1.0 / 0.6 - 0.9 cm LV Relative Wall Thickness 0.5 RV Internal Dim ED PLAX 2.3 cm LA Systolic Diameter LX 4.6 cm 3.0 - 4.0 / 2.7 - 3.8 cm LV Diastolic Volume MOD BP 104.2 cm??? 67 - 155 / 56 - 104 cm??? LV Systolic Volume MOD BP 71.6 cm??? - / 19 - 49 cm??? LV Ejection Fraction MOD BP 31.3 % >= 55 % LV Cardiac Index MOD BP 1357.9 cm???/min???m??? LV Diastolic Volume MOD 4C 123.8 cm??? LV Systolic Volume MOD 4C 83.0 cm??? LV Ejection Fraction MOD 4C 33.0 % LV Cardiac Index MOD 4C 1698.7 cm???/min???m??? LV Diastolic Length 4C 8.6 cm LV Systolic Length 4C 7.7 cm LV Diastolic Volume MOD 2C 87.4 cm??? LV Systolic Volume MOD 2C 58.2 cm??? LV Ejection Fraction MOD 2C 33.4 % LV Cardiac Index MOD 2C 1217.6 cm???/min???m??? LV Diastolic Length 2C 8.4 cm LV Systolic Length 2C 7.2 cm LA Volume 106.4 cm??? 18 - 58 / 22 - 52 cm??? LA Volume Index 49.8 cm???/m??? 16 - 28 cm???/m??? M-MODE Aortic Root Diameter MM 3.4 cm LA Systolic Diameter MM 4.2 cm LA Ao Ratio MM 1.2 AV Cusp Separation MM 2.1 cm DOPPLER Mitral E Point Velocity 102.6 cm/s Mitral A Point Velocity 0.9 cm/s Mitral E to A Ratio 112.3 TR Peak Velocity 233.2 cm/s TR Peak Gradient 21.8 mmHg Right Atrial Pressure 5.0 mmHg Pulmonary Artery Systolic Pressu 26.8 mmHg Right Ventricular Systolic Press 26.8 mmHg FINDINGS Left Ventricle Left ventricular ejection fraction is estimated at 40-45 %. Mildly increased septal wall thickness. Moderately increased left ventricular systolic volume. Mildly reduced global left ventricular systolic function. Right Ventricle Normal right ventricular size and function. Right ventricular systolic pressure within normal limits. Right Atrium Mild right atrial dilatation. Left Atrium . Severely increased left atrial volume. Mitral Valve Structurally normal mitral valve. Moderate mitral regurgitation. No mitral stenosis. Aortic Valve Trileaflet aortic valve. No aortic stenosis. No aortic regurgitation. Tricuspid Valve Structurally normal tricuspid valve. Mild tricuspid regurgitation. No tricuspid stenosis. Pulmonic Valve Structurally normal pulmonic valve. Mild pulmonic regurgitation. No pulmonic stenosis. Pericardium No pericardial or pleural effusion. Aorta Normal size aortic root and proximal ascending aorta. CONCLUSIONS Diagnosis: New onset atrial fibrillation and shortness of breath LVH with reduced LV systolic function, LVEF 35-40% Left atrial enlargement Previewed by: Dr. Aric Acuna MD (Electronically Signed) Final Date: 09 Jul 2024 18:08
[2024-07-09] MEDS: HEPARIN SODIUM 1,000 UN/ML (10ML VL) IV PRN (18:52)
[2024-07-09 19:01] LABS: Glucose,Whole Blood 229 mg/dL (70-110)
[2024-07-09] MEDS: INSULIN LISPRO (HumaLOG) 100 UNIT/ML 10 mL VL SQ SCH (19:04)
[2024-07-09 21:12] LABS: Glucose,Whole Blood 206 mg/dL (70-110)
[2024-07-10 05:00] VITALS: PULSE 80
[2024-07-10 06:31] LABS: Glucose,Whole Blood 86 mg/dL (70-110)
[2024-07-10 08:34] LABS: Basophils # (A) 0.05 10*3/uL (0.00-0.10); Basophils % (A) 0.9 %; Eosinophils # (A) 0.09 10*3/uL (0.04-0.35); Eosinophils % (A) 1.6 %; HCT 40.8 % (39.6-50.0); HGB 13.6 g/dL (13.0-17.0); Lymphocytes # (A) 0.93 10*3/uL (0.90-5.00); Lymphocytes % (A) 16.4 %; MCHC 33.3 g/dL (32.0-37.0); MCV 89.9 fL (80.0-97.0); Mean Platelet Volume 9.4 fL (9.5-12.2); Monocytes # (A) 0.99 10*3/uL (0.20-1.00); Monocytes % (A) 17.4 %; Neutrophils % (A) 61.6 %; Platelet Count 320 10*3/uL (140-440); RBC 4.54 10*6/uL (4.40-5.60); RDW 12.9 % (11.5-14.5); WBC 5.68 10*3/uL (4.50-10.00)
[2024-07-10 09:00] LABS: ALT 40 U/L (4-49); AST 37 U/L (17-59); African American GFR (CKD) >90 (>60 ml/min/1.73 sqM); Albumin 3.1 g/dL (3.5-5.0); Alkaline Phosphatase 179 U/L (38-126); Anion Gap 9 mmol/L; Blood Urea Nitrogen 16 mg/dL (9-20); Calcium 9.3 mg/dL (8.4-10.2); Carbon Dioxide 26 mmol/L (22-30); Chloride 105 mmol/L (98-107); Glucose 113 mg/dL (74-99); Non-African American GFR(CKD) 81 (>60 ml/min/1.73 sqM); Potassium 4.2 mmol/L (3.5-5.1); Sodium 140 mmol/L (137-145); Total Bilirubin 1.1 mg/dL (0.2-1.3); Total Protein 5.8 g/dL (6.3-8.2)
[2024-07-10 09:06] VITALS: BP 106/66; RESP 14; TEMP 98.6
[2024-07-10 09:20] LABS: Partial Thromboplastin Time 43.4 sec (22.0-30.0); Prothrombin Time 11.5 sec (10.0-12.5)
[2024-07-10] MEDS: SACUBITRIL/VALSARTAN 24 MG-26 MG TABLET PO SCH ×2 (09:51→10:04)
[2024-07-10] MEDS: APIXABAN 5 MG TAB PO SCH (09:51)
[2024-07-10] MEDS: AMIODARONE 200 MG TAB PO SCH (09:51)
[2024-07-10] MEDS: METOPROLOL SUCCINATE (ER) 50 MG TAB.ER.24H PO SCH (09:52)
[2024-07-10 11:28] LABS: Glucose,Whole Blood 158 mg/dL (70-110)
--- NOTE | 2024-07-10 11:37 | P.DS ---
Providers Date of admission: 07/09/24 10:07 Expected date of discharge: 07/10/24 Attending physician: Luiza Russo Consults: 07/09/24 10:06 Consult Physician Routine Consulting Provider: Danilo Silverio Consult Reason/Comments: dysrhythmia Do you want consulting provider notified?: Yes Primary care physician: Man Jacobsen Hospital Course: Discharge diagnoses; A-fib with RVR Hypoglycemia Fall Left frontal sinusitis Hypomagnesium History of hypertension History of diabetes mellitus Hospital course; patient is a 84-year-old gentleman with past medical history significant for hypertension, diabetes mellitus, CVA who presented to the ER because of fall. Patient said he woke up this morning to go to the restroom at that time patient legs gave up and he fell. Patient stated he did not hit his head. Patient did not lose consciousness. There was no weakness of any extremity. There was no complaint of slurred speech. Patient had to call his son for help as his was sleeping in the room. Patient any chest pain there is no complaint of orthopnea or PND. There is no current nausea, vomiting abdominal pain. Initial lab work done in the ER showed WBC 6.02, hemoglobin 13.3, platelet count 269, sodium 137, potassium 4, BUN 25, creatinine 0.73, glucose 44 calcium 9.1, magnesium 1.1 bilirubin 0.9, AST 36, ALT 37, troponin 0.022 UA negative for infection Influenza A not detected Influenza B not detected RSV not detected COVID-19 not detected EKG done in the ER showed heart rate of123, no ST segment elevation or depression seen, no T-wave inversions seen. Chest x-ray done in the ER possible mild fluid overload state CT head done showed no acute intracranial process, moderate patchy burden of chronic small vessel ischemic changes CT cervical spine done showed no acute fracture or malalignment of the cervical spine Patient admitted to internal medicine service 07/10. Patient seen examined. Patient was seen by cardiology, 2D echo reviewed showed LVEF of 35 to 40%, left atrial enlargement. Cardiology recommended starting patient on Eliquis and amiodarone 200 mg twice daily for 2 weeks followed by 20 mg daily. Patient started on Entresto as well. Because of of hypoglycemia, will DC glipizide and continue patient on metformin. Patient to continue Augmentin to complete 1 week of treatment for frontal sinusitis. Patient cleared for discharge PHYSICAL EXAMINATION: GENERAL: The patient is alert and oriented x3, not in any acute distress. Well developed, well nourished. HEENT: Pupils are round and equally reacting to light. EOMI. No scleral icterus. No conjunctival pallor. Normocephalic, atraumatic. No pharyngeal erythema. No thyromegaly. CARDIOVASCULAR: S1 and S2 present. No murmurs, rubs, or gallops. PULMONARY: Chest is clear to auscultation, no wheezing or crackles. ABDOMEN: Soft, nontender, nondistended, normoactive bowel sounds. No palpable organomegaly. MUSCULOSKELETAL: No joint swelling or deformity. EXTREMITIES: No cyanosis, clubbing, or pedal edema. NEUROLOGICAL: Gross neurological examination did not reveal any focal deficits. SKIN: No rashes. Dictation was produced using [employer] dictation software. please excuse any grammatical, word or spelling errors. Patient Condition at Discharge: Fair Plan - Discharge Summary Discharge Rx Participant: Yes New Discharge Prescriptions: New Amoxic-Pot Clav 875-125Mg [Augmentin 875-125] 1 each PO BID 6 Days #12 tab Apixaban [Eliquis] 5 mg PO BID 30 Days #60 tab Metoprolol Succinate (ER) [Toprol XL] 50 mg PO DAILY 30 Days #30 tab Amiodarone [Cordarone] 200 mg PO BID 30 Days #60 tab Sacubitril/Valsartan [Entresto 24 mg-26 mg Tablet] 0.5 each PO BID 30 Days #60 tab Atorvastatin [Lipitor] 20 mg PO HS 30 Days #30 tab Continue Ubidecarenone [Co Q-10] 200 mg PO DAILY glipiZIDE/METFORMIN HCL [glipiZIDE/METFORMIN HCL 2.5-500 mg] 2 tab PO BID- W/MEALS Repaglinide [Prandin] 2 mg PO AC-BID Ascorbic Acid [Vitamin C] 500 mg PO DAILY Magnesium 250 mg PO DAILY Tamsulosin [Flomax] 0.4 mg PO HS Lipase/Protease/Amylase [Zenpep Dr 40,000 Unit Capsule] 40,000 units PO TID- W/MEALS Cholecalciferol [Vitamin D3 (25 Mcg = 1000 Iu)] 50 mcg PO DAILY Isosorbide Mononitrate ER [Imdur] 30 mg PO DAILY Rivastigmine Tartrate [Rivastigmine] 1.5 mg PO BID-W/MEALS Alfuzosin HCl [Alfuzosin HCl ER] 10 mg PO HS Discontinued Atorvastatin [Lipitor] 10 mg PO HS Losartan Potassium [Cozaar] 25 mg PO QAM Aspirin 81 mg PO DAILY Discharge Medication List Repaglinide [Prandin] 2 mg PO AC-BID 12/23/18 [History] Ubidecarenone [Co Q-10] 200 mg PO DAILY 12/23/18 [History] glipiZIDE/METFORMIN HCL [glipiZIDE/METFORMIN HCL 2.5-500 mg] 2 tab PO BID- W/MEALS 12/23/18 [History] Ascorbic Acid [Vitamin C] 500 mg PO DAILY 06/06/21 [History] Lipase/Protease/Amylase [Zenpep Dr 40,000 Unit Capsule] 40,000 units PO TID- W/MEALS 06/06/21 [History] Tamsulosin [Flomax] 0.4 mg PO HS 06/06/21 [History] Cholecalciferol [Vitamin D3 (25 Mcg = 1000 Iu)] 50 mcg PO DAILY 11/18/22 [History] Alfuzosin HCl [Alfuzosin HCl ER] 10 mg PO HS 07/09/24 [History] Isosorbide Mononitrate ER [Imdur] 30 mg PO DAILY 07/09/24 [History] Magnesium 250 mg PO DAILY 07/09/24 [History] Rivastigmine Tartrate [Rivastigmine] 1.5 mg PO BID-W/MEALS 07/09/24 [History] Amiodarone [Cordarone] 200 mg PO BID 30 Days #60 tab 07/10/24 [Rx] Amoxic-Pot Clav 875-125Mg [Augmentin 875-125] 1 each PO BID 6 Days #12 tab 06/22 0 [Rx] Apixaban [Eliquis] 5 mg PO BID 30 Days #60 tab 07/10/24 [Rx] Atorvastatin [Lipitor] 20 mg PO HS 30 Days #30 tab 07/10/24 [Rx] Metoprolol Succinate (ER) [Toprol XL] 50 mg PO DAILY 30 Days #30 tab 07/10/24 [Rx] Sacubitril/Valsartan [Entresto 24 mg-26 mg Tablet] 0.5 each PO BID 30 Days #60 tab 07/10/24 [Rx] Follow up Appointment(s)/Referral(s): Man Jacobsen MD [Primary Care Provider] - 1-2 days Ambulatory/Diagnostic Orders: Basic Metabolic Panel [LAB.AMB] Location: None Selected Magnesium [LAB.AMB] Location: None Selected Miscellaneous Lab Order [LAB.AMB] Location: None Selected
--- NOTE | 2024-07-10 13:28 | P.CRDCN ---
History of Present Illness Consult date: 07/10/24 Reason for Consult (text): New onset A-fib with RVR History of present illness: This is an 84-year-old male patient of Dr. Finley with past medical history of hypertension, hyperlipidemia, diabetes mellitus type 2, history of stroke 3 years ago. We have been asked to evaluate the patient for new onset of atrial fibrillation. Patient states that he was getting up to the bathroom and fell but he was not able to get up off the floor. He states he has been very weak. Last he was at his PCP office was seen by nurse practitioner's he had not been feeling well for the past couple of months. He thought that his brain was fuzzy and there was something noted on his EKG but he has not been told that he had atrial fibrillation. Patient was brought into [facility] emergency center where he was found to be in A-fib with RVR. He has been started on heparin drip and Cardizem drip and subsequently converted to sinus rhythm. Blood pressure 106/66, heart rate 80, pulse ox 96% on room air. He states he feels good today and he was able to get up and walk to the bathroom. Dr. Silverio contacted patient's per his request and updated her regarding diagnosis and all questions answered. -EKG: Atrial fibrillation 123 bpm. #2 sinus rhythm with PACs 84 bpm -Chest x-ray: Possible mild fluid overload state. -CT brain and cervical spine: Moderate chronic small vessel ischemic disease. No acute intracranial abnormality. No acute fracture or malalignment of the cervical spine. Moderate to advanced spondylotic change. -Echocardiogram performed 06/09/2024 revealed LVH with reduced EF 35 to 40%. Mild atrial enlargement. -Laboratory studies: WBC 5.6, hemoglobin 13.6. Glucose 44. BUN 16, creatinine 0.86. Troponin negative x 1. TSH 2.46. Cepheid viral panel not detected. -Home cardiac medications: Atorvastatin 10 mg daily, aspirin 81 mg daily, losartan 25 mg daily, Imdur 30 mg daily. -Lexiscan Cardiolite stress test performed 06/21/2023 revealed EF 50% and normal study. -Echocardiogram performed 07/27/2023 revealed normal EF, mild TR, mild MR. Review Of Systems: At the time of my exam: CONSTITUTIONAL: Denies fever or chills. Reports generalized weakness improved. HEENT: Denies blurred vision, vision changes, or eye pain. Denies hemoptysis CARDIOVASCULAR: Denies chest pain. Denies orthopnea. Denies PND. Denies palpitations RESPIRATORY: Denies shortness of breath. GASTROINTESTINAL: Denies abdominal pain. Denies nausea or vomiting. HEMATOLOGIC: Denies bleeding disorders. GENITOURINARY: Denies any blood in urine. SKIN: Denies puritis. Denies rash. Physical examination: Gen: This is 84-year-old male in no acute distress. VS: reviewed HEENT: Head is atraumatic, normocephalic. Pupils equal, round. Sclerae is anicteric. NECK: Supple. No JVD. LUNGS: Clear to auscultation. No wheezes or rhonchi. No intercostal retractions. HEART: Irregular rate and rhythm secondary to PACs. No murmur. ABDOMEN: Soft No tenderness. EXTREMITIES: No pedal edema. No calf tenderness. NEUROLOGICAL: Patient is awake, alert and oriented x3. Assessment: Hypoglycemia New onset paroxysmal atrial fibrillation with RVR, currently in sinus rhythm Hypertension Hyperlipidemia Diabetes mellitus type 2 History of CVA 3 years ago Plan: Resume patient's home cardiac medications with the following changes Start patient on amiodarone 200 mg twice daily for 2 weeks and then 200 mg daily Discontinue Cardizem drip Discontinue heparin drip Start patient on Eliquis 5 mg twice daily Change a atorvastatin to 20 mg at bedtime Start patient on metoprolol succinate 50 mg daily Start patient on Entresto 24-26 mg half tablet twice daily Discontinue losartan and aspirin Patient encouraged to ambulate and if doing well this afternoon is cleared for discharge Patient to follow-up in the office with Dr. Finley in 1 week with plan for outpatient stress testing Repeat BMP magnesium and proBNP in 1 week with results to Drs. Finley and Delmar Thank you kindly for this consultation. Nurse practitioner note has been reviewed, I agree with documented findings and plan of care. Patient was seen and examined. Past Medical History Past Medical History: CVA/TIA, Diabetes Mellitus, Hyperlipidemia, Hypertension, Prostate Disorder Additional Past Medical History / Comment(s): gout, cataracts, pancreatitis,septic with gallbladder, Hx gerd no issues now "minor stroke" History of Any Multi-Drug Resistant Organisms: None Reported Past Surgical History: Cholecystectomy, Orthopedic Surgery Additional Past Surgical History / Comment(s): rt eye cataract, shoulder surgery Past Anesthesia/Blood Transfusion Reactions: No Reported Reaction Additional Past Anesthesia/Blood Transfusion Reaction / Comment(s): no hx blood transfusion Past Psychological History: No Psychological Hx Reported Smoking Status: Former smoker Past Alcohol Use History: Daily Additional Past Alcohol Use History / Comment(s): quit smoking 1980s,started smoking at age 17. drinks 2 blood noe's daily Past Drug Use History: None Reported - Past Family History Father Family Medical History: Coronary Artery Disease (CAD), Myocardial Infarction ([place]) Mother Family Medical History: CVA/TIA Brother(s) Family Medical History: Cancer Medications and Allergies Home Medications Medication Instructions Recorded Confirmed Type Repaglinide [Prandin] 2 mg PO AC-BID 12/23/18 07/09/24 History Ubidecarenone [Co Q-10] 200 mg PO DAILY 12/23/18 07/09/24 History Ascorbic Acid [Vitamin C] 500 mg PO DAILY 06/06/21 07/09/24 History Lipase/Protease/Amylase [Zenpep Dr 40,000 units PO TID-W/MEALS 06/06/21 07/09/24 History 40,000 Unit Capsule] Tamsulosin [Flomax] 0.4 mg PO HS 06/06/21 07/09/24 History Cholecalciferol [Vitamin D3 (25 50 mcg PO DAILY 11/18/22 07/09/24 History Mcg = 1000 Iu)] Alfuzosin HCl [Alfuzosin HCl ER] 10 mg PO HS 07/09/24 07/09/24 History Isosorbide Mononitrate ER [Imdur] 30 mg PO DAILY 07/09/24 07/09/24 History Magnesium 250 mg PO DAILY 07/09/24 07/09/24 History Rivastigmine Tartrate 1.5 mg PO BID-W/MEALS 07/09/24 07/09/24 History [Rivastigmine] Amiodarone [Cordarone] 200 mg PO BID 30 Days #60 tab 07/10/24 Rx Amoxic-Pot Clav 875-125Mg 1 each PO BID 6 Days #12 tab 07/10/24 Rx [Augmentin 875-125] Apixaban [Eliquis] 5 mg PO BID 30 Days #60 tab 07/10/24 Rx Atorvastatin [Lipitor] 20 mg PO HS 30 Days #30 tab 07/10/24 Rx Metoprolol Succinate (ER) [Toprol 50 mg PO DAILY 30 Days #30 tab 07/10/24 Rx XL] Sacubitril/Valsartan [Entresto 24 0.5 each PO BID 30 Days #60 tab 07/10/24 Rx mg-26 mg Tablet] metFORMIN HCL 1,000 mg PO BID 30 Days #60 tablet 07/10/24 Rx Allergies Allergy/AdvReac Type Severity Reaction Status Date / Time No Known Allergies Allergy Verified 07/09/24 15:24 Physical Exam Vitals: Vital Signs Temp Pulse Pulse Resp BP BP Pulse Ox 07/10/24 08:55 98.6 F 80 14 106/66 96 07/10/24 04:00 98.3 F 80 17 123/75 93 L 07/10/24 02:00 82 18 07/10/24 00:00 98.3 F 87 17 124/76 94 L 07/09/24 21:20 98.6 F 88 17 126/77 96 07/09/24 21:00 88 18 07/09/24 20:33 88 17 127/71 97 07/09/24 18:43 111 H 18 143/99 98 07/09/24 14:41 92 18 114/74 97 07/09/24 12:47 86 18 113/74 96 07/09/24 10:35 94 18 92/62 95 07/09/24 10:01 114 H Intake and Output 07/09/24 07/10/24 07/10/24 22:59 06:59 14:59 Intake Total 93.5 507.956 Output Total 680 350 Balance 93.5 -172.044 -350 Intake: Intake, IV Titration 93.5 207.956 Amount Diltiazem 125 mg In 96.917 Dextrose 5% in Water 100 ml @ 5 MG/HR 5 mls/hr IV .Q24H [facility] Rx#:[id number] Heparin Sod,Pork in 0.45% 93.5 111.039 NaCl 25,000 unit In 0.45 % NaCl 1 250ml.bag @ 11. 248 UNITS/KG/HR 10 mls/hr IV .Q24H [facility] Rx#: [id number] Oral 300 Output: Urine 680 350 Other: Voiding Method Urinal Urinal # Voids 1 Weight 88.904 kg 88 kg Results 07/10/24 07:44 07/10/24 07:44 Cardiac Enzymes 07/10/24 Range/Units 07:44 AST 37 (17-59) U/L Coagulation 07/09/24 07/10/24 Range/Units 14:21 00:23 APTT 36.1 H 39.3 H (22.0-30.0) sec CBC 07/10/24 Range/Units 07:44 WBC 5.68 (4.50-10.00) 10*3/uL RBC 4.54 (4.40-5.60) 10*6/uL Hgb 13.6 (13.0-17.0) g/dL Hct 40.8 (39.6-50.0) % Plt Count 320 (140-440) 10*3/uL Comprehensive Metabolic Panel 07/10/24 Range/Units 07:44 Sodium 140 (137-145) mmol/L Potassium 4.2 (3.5-5.1) mmol/L Chloride 105 (98-107) mmol/L Carbon Dioxide 26 (22-30) mmol/L BUN 16 (9-20) mg/dL Creatinine 0.86 (0.66-1.25) mg/dL Glucose 113 H (74-99) mg/dL Calcium 9.3 (8.4-10.2) mg/dL AST 37 (17-59) U/L ALT 40 (4-49) U/L Alkaline Phosphatase 179 H (38-126) U/L Total Protein 5.8 L (6.3-8.2) g/dL Albumin 3.1 L (3.5-5.0) g/dL Current Medications Generic Name Dose Route Start Last Admin Trade Name Freq PRN Reason Stop Dose Admin Amoxicillin/Clavulanate Potassium 1 each 07/09/24 09:00 07/10/24 08:59 Amoxic-Pot Clav 875-125mg 1 Each Tab PO 1 each BID LIZZETTE Administration Protocol Dextrose/Water 25 ml 07/09/24 14:01 Dextrose 50% Syringe 50 Ml IVP PER PROTOCOL PRN Hypoglycemia Protocol Dextrose/Water 50 ml 07/09/24 14:01 Dextrose 50% Syringe 50 Ml IVP PER PROTOCOL PRN Hypoglycemia Protocol Heparin Sodium (Porcine) 0 unit 07/09/24 08:50 07/09/24 18:52 Heparin Sodium 1,000 Un/Ml (10ml Vl) IV 2,200 unit PER PROTOCOL PRN Administration Low PTT Protocol Diltiazem HCl 125 mg/ Dextrose 125 mls @ 5 mls/hr 07/09/24 07:30 07/10/24 03:51 /Water IV 5 mg/hr .Q24H LIZZETTE 5 mls/hr Administration Protocol 5 MG/HR Heparin Sodium/Sodium Chloride 250 mls @ 10 mls/hr 07/09/24 09:00 07/10/24 03:52 25,000 unit/ Sodium Chloride IV 15.248 units/kg/hr .Q24H [facility]TE 13.556 mls/hr Administration Protocol 11.248 UNITS/KG/HR Insulin Human Lispro 0 unit 07/09/24 17:30 07/10/24 06:29 Insulin Lispro (Humalog) 100 Unit/Ml 10 Ml Vl SQ Not Given ACHS LIZZETTE Protocol Naloxone HCl 0.2 mg 07/09/24 10:06 Naloxone 0.4 Mg/Ml 1 Ml Vial IV Q2M PRN Opioid Reversal Intake and Output 07/09/24 07/10/24 07/10/24 22:59 06:59 14:59 Intake Total 93.5 507.956 Output Total 680 350 Balance 93.5 -172.044 -350 Intake: Intake, IV Titration 93.5 207.956 Amount Diltiazem 125 mg In 96.917 Dextrose 5% in Water 100 ml @ 5 MG/HR 5 mls/hr IV .Q24H [facility] Rx#:[id number] Heparin Sod,Pork in 0.45% 93.5 111.039 NaCl 25,000 unit In 0.45 % NaCl 1 250ml.bag @ 11. 248 UNITS/KG/HR 10 mls/hr IV .Q24H [facility] Rx#: [id number] Oral 300 Output: Urine 680 350 Other: Voiding Method Urinal Urinal # Voids 1 Weight 88.904 kg 88 kg 07/10/24 07:44 07/10/24 07:44
[2024-07-10] MEDS ORDERED: ATORVASTATIN 20 MG TAB PO SCH (21:00)
== END 2024-07-10 14:34 | disposition home or self-care (01) ==
LOC: EC 05:14 → INTOOBSV 10:07 → 3SCARD 10:07
PROVIDERS: ADMIT Hospitalist; ATTEND Hospitalist
DX: I48.0 Paroxysmal atrial fibrillation (principal); E83.42 Hypomagnesemia; J01.10 Acute frontal sinusitis, unspecified; E11.649 Type 2 diabetes mellitus with hypoglycemia without coma; I11.9 Hypertensive heart disease without heart failure; E78.5 Hyperlipidemia, unspecified; I08.1 Rheumatic disorders of both mitral and tricuspid valves; S50.312A Abrasion of left elbow, initial encounter; W18.30XA Fall on same level, unspecified, initial encounter; Y92.009 Unspecified place in unspecified non-institutional (private) residence as the place of occurrence of the external cause; R29.6 Repeated falls; Z79.82 Long term (current) use of aspirin; Z79.84 Long term (current) use of oral hypoglycemic drugs; Z79.899 Other long term (current) drug therapy; Z11.52 Encounter for screening for COVID-19; Z11.59 Encounter for screening for other viral diseases; Z86.73 Personal history of transient ischemic attack (TIA), and cerebral infarction without residual deficits; Z87.891 Personal history of nicotine dependence
CPT/HCPCS: 96366 ×3; 96368 ×2; 96376; 96361; 96365 ×2; 96375; 99291; 36415; 93005; 93306; 82747; 80053 ×2; 84443; 82607; 83735; 84484; 85025 ×2; 85610 ×2; 85730 ×2; 81003; 83036; 87636; 71046; 72125; 70450; G0378; J1644 ×3; J3475

== ENCOUNTER 2024-08-02 14:43 | Emergency (ER) | payer MEDICARE ==
--- NOTE | 2024-08-02 15:11 | CT ---
EXAMINATION TYPE: CT brain ernestina pearson con DATE OF EXAM: 08/02/2024 COMPARISON: 07/09/2024 CLINICAL INDICATION: Male, 84 years old with history of fall, on thinners; PHH, Code Coag. Fall on th inners. No LOC. TECHNIQUE: CT scan of the head and cervical spine are performed without contrast. CT DLP: [address] CTDI: mGy Automated exposure control for dose reduction was used. Findings: Head CT: Ventricles, basal cisterns and sulci over convexities are mildly enlarged consistent with mild genera lized atrophy. There is mild multifocal areas of abnormal decreased density in the periventricular white matter cons istent with chronic ischemic white matter demyelination. There are 2 or 3 small remote lacunar infarc ts in the left basal ganglia. There is no mass effect or shift of midline structures. There is no acute intra or extra-axial hemorrhage. Posterior fossa including the brainstem, fourth ventricle and cerebellar pontine angles are grossly n ormal. The intraorbital contents appear normal and symmetric. There is moderate to marked chronic inflammato ry change in the sinus. Calvarium is intact. CT cervical spine: Craniovertebral junction relationships and prevertebral soft tissues are normal. The cervical vertebral segments are normal in height and alignment and there is no fracture subluxati on. There is moderate to marked disc space narrowing and spondylosis at the C4-5, C5-6 and C6-7 levels in dicating moderate to marked degenerative disc disease. There is mild to moderate arthropathy of the f acet joints and uncovertebral joints in the lower cervical spine The bony cervical canal is widely patent. There is mild bony neural foraminal encroachment at the C4- 5, C5-6 and C6-7 levels, right slightly greater than left. The paraspinal soft tissues unremarkable. IMPRESSION: 1. Head CT: No acute bleed or mass effect. Mild atrophy, chronic ischemic white matter changes and st able small remote lacunar infarcts in the left basal ganglia. 2. CT cervical spine: No acute trauma. 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 [facility], , 08/02/2024 3:09 PM
[2024-08-02 16:09] LABS: HCT 38.8 % (39.6-50.0); HGB 13.1 g/dL (13.0-17.0); MCH 30.1 pg (27.0-32.0); MCHC 33.8 g/dL (32.0-37.0); MCV 89.2 fL (80.0-97.0); Mean Platelet Volume 10.3 fL (9.5-12.2); Platelet Count 272 10*3/uL (140-440); RBC 4.35 10*6/uL (4.40-5.60)
--- NOTE | 2024-08-02 16:29 | ED ---
General Adult HPI - General Chief complaint: Head Injury Stated complaint: Fall-Head Injury Time Seen by Provider: 08/02/24 14:50 Source: patient, RN notes reviewed, old records reviewed Mode of arrival: wheelchair Limitations: no limitations - History of Present Illness Initial comments: This is an 84-year-old male who presents to the emergency department after having fallen when he was trying to walk his dog. Patient states he hit his head on concrete. Patient denies loss of consciousness. Patient denies being dazed. Patient Nuys neck pain patient has numbness weakness. Patient states he is on a blood thinner. Patient on arrival is bleeding from the scalp. Patient also hit his elbow but he states he has full range of motion is not tender just a little scrape. - Related Data Home Medications Medication Instructions Recorded Confirmed Repaglinide [Prandin] 2 mg PO AC-BID 12/23/18 07/09/24 Ubidecarenone [Co Q-10] 200 mg PO DAILY 12/23/18 07/09/24 Ascorbic Acid [Vitamin C] 500 mg PO DAILY 06/06/21 07/09/24 Lipase/Protease/Amylase [Zenpep Dr 40,000 units PO TID-W/MEALS 06/06/21 07/09/24 40,000 Unit Capsule] Tamsulosin [Flomax] 0.4 mg PO HS 06/06/21 07/09/24 Cholecalciferol [Vitamin D3 (25 50 mcg PO DAILY 11/18/22 07/09/24 Mcg = 1000 Iu)] Alfuzosin HCl [Alfuzosin HCl ER] 10 mg PO HS 07/09/24 07/09/24 Isosorbide Mononitrate ER [Imdur] 30 mg PO DAILY 07/09/24 07/09/24 Magnesium 250 mg PO DAILY 07/09/24 07/09/24 Rivastigmine Tartrate 1.5 mg PO BID-W/MEALS 07/09/24 07/09/24 [Rivastigmine] Previous Rx's Medication Instructions Recorded Amiodarone [Cordarone] 200 mg PO BID 30 Days #60 tab 07/10/24 Amoxic-Pot Clav 875-125Mg 1 each PO BID 6 Days #12 tab 07/10/24 [Augmentin 875-125] Apixaban [Eliquis] 5 mg PO BID 30 Days #60 tab 07/10/24 Atorvastatin [Lipitor] 20 mg PO HS 30 Days #30 tab 07/10/24 Metoprolol Succinate (ER) [Toprol 50 mg PO DAILY 30 Days #30 tab 07/10/24 XL] Sacubitril/Valsartan [Entresto 24 0.5 each PO BID 30 Days #60 tab 07/10/24 mg-26 mg Tablet] metFORMIN HCL 1,000 mg PO BID 30 Days #60 tablet 07/10/24 Allergies Allergy/AdvReac Type Severity Reaction Status Date / Time No Known Allergies Allergy Verified 07/09/24 15:24 Review of Systems ROS Statement: Those systems with pertinent positive or pertinent negative responses have been documented in the HPI. ROS Other: All systems not noted in ROS Statement are negative. Past Medical History Past Medical History: Atrial Fibrillation, CVA/TIA, Diabetes Mellitus, Hyperlipidemia, Hypertension, Prostate Disorder Additional Past Medical History / Comment(s): gout, cataracts, pancreatitis,septic with gallbladder, Hx gerd no issues now "minor stroke" History of Any Multi-Drug Resistant Organisms: None Reported Past Surgical History: Cholecystectomy, Orthopedic Surgery Additional Past Surgical History / Comment(s): rt eye cataract, shoulder surgery Past Anesthesia/Blood Transfusion Reactions: No Reported Reaction Additional Past Anesthesia/Blood Transfusion Reaction / Comment(s): no hx blood transfusion Past Psychological History: No Psychological Hx Reported Smoking Status: Former smoker Past Alcohol Use History: Occasional Past Drug Use History: None Reported - Past Family History Father Family Medical History: Coronary Artery Disease (CAD), Myocardial Infarction ([place]) Mother Family Medical History: CVA/TIA Brother(s) Family Medical History: Cancer General Exam - General Exam Comments Initial Comments: GENERAL: Patient is well-developed and well-nourished. Patient is nontoxic and well- hydrated and is in mild distress. ENT: Neck is soft and supple. No significant lymphadenopathy is noted. Oropharynx is clear. Moist mucous membranes. Neck has full range of motion without eliciting any pain. EYES: The sclera were anicteric and conjunctiva were pink and moist. Extraocular movements were intact and pupils were equal round and reactive to light. Eyelids were unremarkable. PULMONARY: Unlabored respirations. Good breath sounds bilaterally. No audible rales rhonchi or wheezing was noted. CARDIOVASCULAR: There is a regular rate and rhythm without any murmurs gallops or rubs. ABDOMEN: Soft and nontender with normal bowel sounds. SKIN: Patient has a stellate scalp laceration measuring approximately 3-1/2 cm in tot al. Elbow has a very superficial abrasion NEUROLOGIC: Patient is alert and oriented x3. Cranial nerves II through XII are grossly intact. Motor and sensory are also intact. Normal speech, volume and content. Symmetrical smile. MUSCULOSKELETAL: Normal extremities with adequate strength and full range of motion. LYMPHATICS: No significant lymphadenopathy is noted PSYCHIATRIC: Normal psychiatric evaluation. Limitations: no limitations Course Vital Signs 08/02/24 14:45 Temperature 97.5 F L Pulse Rate 77 Respiratory 16 Rate Blood Pressure 128/78 O2 Sat by Pulse 98 Oximetry Procedures - Laceration Laceration #1 Consent Obtained: verbal consent Indication: laceration Site: scalp Description: stellate Size of Sutures: other (Edmund) Number of Sutures: 4 Complications: pain Patient Tolerated Procedure: well Medical Decision Making - Medical Decision Making Was pt. sent in by a medical professional or institution (, PA, ASSEMBLER CON[employer], urgent care, hospital, or jail...) When possible be specific @ -No Did you speak to anyone other than the patient for history (EMS, parent, family, police, friend...)? What history was obtained from this source @ -No Did you review nursing and triage notes (agree or disagree)? Why? @ -I reviewed and agree with nursing and triage notes Were old charts reviewed (outside hosp., previous admission, EMS record, old EKG, old radiological studies, urgent care reports/EKG's, jail records)? Report findings @ -No old charts were reviewed Differential Diagnosis? @ -Scalp laceration, cervical spine injury, intracranial hemorrhage, skull fracture, this is not an all-inclusive list EKG interpreted by me (3pts min.). @ -As above X-rays interpreted by me (1pt min.). @ -None done CT interpreted by me (1pt min.). @ -CT of the brain and C-spine showed no acute abnormality U/S interpreted by me (1pt. min.). @ -None done What testing was considered but not performed or refused? (CT, X-rays, U/S, labs)? Why? @ -None What meds were considered but not given or refused? Why? @ -None Did you discuss the management of the patient with other professionals (professionals i.e. DrColumba, PA, ASSEMBLER [employer], lab, RT, psych nurse, director social service, broadcast engineer, teacher, campus police officer, case checker)? Give summary @ -No Was smoking cessation discussed for >3mins.? @ -No Was critical care preformed (if so, how long)? @ -No Were there social determinants of health that impacted care today? How? (Homelessness, low income, unemployed, alcoholism, drug addiction, transportation, low edu. Level, literacy, decrease access to med. care, longterm, rehab)? @ -No Was there de-escalation of care discussed even if they declined (Discuss DNR or withdrawal of care, Hospice)? DNR status @ -No What co-morbidities impacted this encounter? (DM, HTN, Smoking, COPD, CAD, Cancer, CVA, ARF, Chemo, Hep., AIDS, mental health diagnosis, sleep apnea, morbid obesity)? @ -Patient says CAT scan was negative. Patient was alert and oriented and at his baseline. Patient had 4 edmund placed in his stellate scalp laceration to approximate the edges. Was patient admitted / discharged? Hospital course, mention meds given and route, prescriptions, significant lab abnormalities, going to OR and other pertinent info. @ -Hospital course Undiagnosed new problem with uncertain prognosis? @ -No Drug Therapy requiring intensive monitoring for toxicity (Heparin, Nitro, Insulin, Cardizem)? @ -No Were any procedures done? @ -No Diagnosis/symptom? @ -Scalp laceration Acute, or Chronic, or Acute on Chronic? @ -Acute Uncomplicated (without systemic symptoms) or Complicated (systemic symptoms)? @ -Uncomplicated Side effects of treatment? @ -No Exacerbation, Progression, or Severe Exacerbation? @ -No Poses a threat to life or bodily function? How? (Chest pain, [place], [place], pneumonia, PE, COPD, DKA, ARF, appy, cholecystitis, CVA, Diverticulitis, Homicidal, Suicidal, threat to staff... and all critical care pts) @ -No Diagnosis/symptom? @ -Head injury Acute, or Chronic, or Acute on Chronic? @ -Acute Uncomplicated (without systemic symptoms) or Complicated (systemic symptoms)? @ -Uncomplicated Side effects of treatment? @ -None Exacerbation, Progression, or Severe Exacerbation] @ -No Poses a threat to life or bodily function? @ -No Diagnosis/symptom? @ -Fall Acute, or Chronic, or Acute on Chronic? @ -Acute Uncomplicated (without systemic symptoms) or Complicated (systemic symptoms)? @ -Uncomplicated Side effects of treatment? @ -None Exacerbation, Progression, or Severe Exacerbation] @ -No Poses a threat to life or bodily function? @ -No - Lab Data Result diagrams: 08/02/24 15:46 Lab Results 08/02/24 Range/Units 15:46 WBC 6.40 (4.50-10.00) 10*3/uL RBC 4.35 L (4.40-5.60) 10*6/uL Hgb 13.1 (13.0-17.0) g/dL Hct 38.8 L (39.6-50.0) % MCV 89.2 (80.0-97.0) fL MCH 30.1 (27.0-32.0) pg MCHC 33.8 (32.0-37.0) g/dL Plt Count 272 (140-440) 10*3/uL MPV 10.3 (9.5-12.2) fL Disposition Clinical Impression: Closed head injury, Scalp laceration, Fall Disposition: HOME SELF-CARE Instructions (If sedation given, give patient instructions): Head Injury (ED), Laceration (ED) Additional Instructions: Patient should have edmund removed in 7 days Is patient prescribed a controlled substance at d/c from ED?: No Referrals: Man Jacobsen MD [Primary Care Provider] - 1-2 days Time of Disposition: 16:33
[2024-08-02] MEDS: DIPH,PERTUS(ACELL)TETVAC-LF 0.5 ML VIAL IM ONE (16:43)
[2024-08-02 16:52] VITALS: BP 116/69; PULSE 64; RESP 18; TEMP 98.1
[2024-08-02 16:58] LABS: ALT 36 U/L (4-49); AST 34 U/L (17-59); African American GFR (CKD) 63 (>60 ml/min/1.73 sqM); Alkaline Phosphatase 126 U/L (38-126); Anion Gap 8 mmol/L; Blood Urea Nitrogen 26 mg/dL (9-20); Calcium 9.7 mg/dL (8.4-10.2); Carbon Dioxide 27 mmol/L (22-30); Chloride 103 mmol/L (98-107); Glucose 136 mg/dL (74-99); Magnesium 1.6 mg/dL (1.6-2.3); Non-African American GFR(CKD) 54 (>60 ml/min/1.73 sqM); Sodium 138 mmol/L (137-145); Total Bilirubin 0.5 mg/dL (0.2-1.3); Total Protein 6.4 g/dL (6.3-8.2)
[2024-08-02 18:40] LABS: NT-Pro-B-Type Natriuretic Pept 253 pg/mL
== END 2024-08-02 16:52 | disposition home or self-care (01) ==
LOC: EC 14:43
DX: S01.01XA Laceration without foreign body of scalp, initial encounter (principal); Z87.891 Personal history of nicotine dependence; Z23 Encounter for immunization; W18.30XA Fall on same level, unspecified, initial encounter; Y93.01 Activity, walking, marching and hiking
CPT/HCPCS: 12001; 36415; 70450; 72125; 80053; 83735; 83880; 84443; 85027; 90471; 90715; 99284